=== PATIENT | female | born 1940 | race African-American/Black ===

== ENCOUNTER 2017-11-22 23:53 | Inpatient (IN) | payer BC, MEDICARE ==
[~2017-11-22] VITALS: Ht 167.6 cm; Wt 85.7 kg
[~2017-11-22 23:53] MED LIST: AFRIN NASAL SPR30 ML NASAL; ASPIR 8181 MG ORAL; BACLOFEN10 MG ORAL; BACTRIM-DS1 EA PO; CIPRO500 MG PO; COMPAZINE25 MG RECTAL; CRESTOR10 M1 ORAL; CRESTOR10 M2 ORAL; FLAGYL500 MG ORAL; KEFLEX500 MG ORAL; LEVAQUIN250 M1 ORAL; LEVAQUIN500 MG ORAL; LUMIGAN2.5 ML BOTH EYES; METOPROLOL SUC100 MG ORAL; PHENERGAN/CODE120 ML ORAL; PLAVIX75 MG ORAL; SULINDAC200 MG PO; VITAMIN C500 M1 ORAL; VITAMIN D35000 UNIT PO; VITAMIN E400 UNIT PO; ZEBETA5 MG ORAL; ZINC SULFATE220 M1 ORAL; ZITHROMAX250 MG ORAL
[2017-11-23] VITALS (8 sets, daily range): BP systolic 130–164; BP diastolic 65–105
[2017-11-23] MEDS ORDERED: Sodium Chloride 500ML 500 ML IV ONE (00:09)
[2017-11-23 00:46] LABS: BASOPHILS % (AUTO) 0.5 % (0.0-2.0); EOSINOPHILS % (AUTO) 0.5 % (0.0-3.0); HEMATOCRIT 54.7 % (37.0-47.0); HEMOGLOBIN 17.4 G/DL (12.0-16.0); LYMPHOCYTES % (AUTO) 11.4 % (20.0-45.0); MEAN CORPUSCULAR VOLUME 84 FL (80-99); MONOCYTES % (AUTO) 7.7 % (1.0-10.0); NEUTROPHILS % (AUTO) 79.9 % (45.0-75.0); PLATELET COUNT 201 K/UL (150-450); RED BLOOD COUNT 6.49 M/UL (4.20-5.40); RED CELL DISTRIBUTION WIDTH 13.3 % (11.6-14.8); WHITE BLOOD COUNT 14.1 K/UL (4.8-10.8)
[2017-11-23 00:47] LABS: APPEARANCE,URINE TURBID; BILIRUBIN, URINE NEGATIVE (NEGATIVE); COLOR,URINE BROWN; GLUCOSE, URINE (UA) NEGATIVE (NEGATIVE); KETONES,URINE NEGATIVE (NEGATIVE); NITRITE,URINE NEGATIVE (NEGATIVE); PH,URINE 9 (4.5-8.0); PROTEIN,URINE 3+ (NEGATIVE); UROBILINOGEN,URINE NORMAL MG/DL (0.0-1.0)
[2017-11-23 00:59] LABS: LEUKOCYTE ESTERASE ,URINE 1+ (NEGATIVE)
[2017-11-23 01:02] LABS: ANION GAP 9 mmol/L (5-15); BLOOD UREA NITROGEN 13 mg/dL (7-18); CALCIUM 9.6 MG/DL (8.5-10.1); CARBON DIOXIDE 30 MMOL/L (21-32); CHLORIDE 105 MMOL/L (98-107); CREATININE 0.9 MG/DL (0.55-1.30); POTASSIUM 3.2 MMOL/L (3.5-5.1); SODIUM 143 MMOL/L (136-145)
[2017-11-23 01:28] LABS: ALANINE AMINOTRANSFERASE 15 U/L (12-78); ALBUMIN 3.6 G/DL (3.4-5.0); ALBUMIN/GLOBULIN RATIO 0.8 (1.0-2.7); ALKALINE PHOSPHATASE 101 U/L (46-116); ASPARTATE AMINO TRANSFERASE 21 U/L (15-37); CKMB 1.9 NG/ML (0.0-3.6); CREATINE KINASE 81 U/L (26-308)
--- NOTE | 2017-11-23 02:16 | Emergency Room Report ---
History of Present Illness General Chief Complaint: Nausea, Vomiting, and Diarrhea Source: Patient, Family Member, EMS Present Illness HPI Patient presents with complaints of increased nausea Mild diffuse abdominal discomfort Denies any diarrhea Patient has Shah catheter in place Patient has been having Shah catheter replaced every several days has ongoing UTI Denies any fevers Denies any chest pain denies any cough patient has also been feeling weak Allergies: Coded Allergies: SILICONE (Unverified Allergy, Unknown, 09/18/15) Patient History Past Medical History: see triage record Pertinent Family History: none Reviewed Nursing Documentation: PMH: Agreed; PSxH: Agreed Nursing Documentation-PMH Past Medical History: No History, Except For Hx Cardiac Problems: Yes Hx Hypertension: Yes Hx Pacemaker: No Hx Asthma: No Hx Diabetes: No - NO HISTORY of DIABETES Hx Cancer: Yes - Kidneys Hx Gastrointestinal Problems: No Hx Dialysis: No Hx Neurological Problems: Yes - TRANSVERSE MILITIS Hx Cerebrovascular Accident: No Hx Seizures: No Hx Multiple Sclerosis: Yes Hx Amyotrophic Lat Sclerosis: Yes Hx Paralysis: Yes - since 08/2008 Hx Neurologic Surgery: No Hx Brain Shunt: No Review of Systems All Other Systems: negative except mentioned in HPI Physical Exam Vital Signs Date Time Temp Pulse Resp B/P (MAP) Pulse Ox O2 Delivery O2 Flow Rate FiO2 11/22/17 23:54 97.5 102 18 142/88 100 Room Air 97.5 Sp02 EP Interpretation: reviewed, normal General Appearance: no apparent distress Head: normocephalic, atraumatic Eyes: bilateral eye PERRL, bilateral eye EOMI ENT: hearing grossly normal, TMs + canals normal, uvula midline, dry mucus membranes Neck: full range of motion, supple, no meningismus, no bony tend Respiratory: lungs clear, normal breath sounds, no rhonchi, no respiratory distress, no retraction, no accessory muscle use Cardiovascular #1: normal peripheral pulses, no edema, no gallop, no JVD, no murmur, tachycardia Gastrointestinal: normal bowel sounds, non tender, soft, no mass, no organomegaly, non-distended, no guarding, no hernia, no pulsatile mass, no rebound Genitourinary: no CVA tenderness Musculoskeletal: normal inspection Neurologic: oriented x3, 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, 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, sensory intact Psychiatric: mood/affect normal Skin: warm/dry, palpation normal Lymphatic: normal inspection, no adenopathy Medical Decision Making Diagnostic Impression: Primary Impression: Nausea Additional Impressions: vomiting Dehydration UTI (urinary tract infection) ER Course Patient is complex with multiple differentials considered At this time abdomen remains soft and therefore imaging study has not been obtained However patient's blood work reveals elevated white blood cell count Urine sample also shows many bacteria We are trying to obtain patient's current antibiotic therapy Therefore further medication has not been given here And patient admitted for further care Labs Test 11/23/17 00:30 White Blood Count 14.1 K/UL (4.8-10.8) Red Blood Count 6.49 M/UL (4.20-5.40) Hemoglobin 17.4 G/DL (12.0-16.0) Hematocrit 54.7 % (37.0-47.0) Mean Corpuscular Volume 84 FL (80-99) Mean Corpuscular Hemoglobin 26.9 PG (27.0-31.0) Mean Corpuscular Hemoglobin Concent 31.9 G/DL (32.0-36.0) Red Cell Distribution Width 13.3 % (11.6-14.8) Platelet Count 201 K/UL (150-450) Mean Platelet Volume 9.0 FL (6.5-10.1) Neutrophils (%) (Auto) 79.9 % (45.0-75.0) Lymphocytes (%) (Auto) 11.4 % (20.0-45.0) Monocytes (%) (Auto) 7.7 % (1.0-10.0) Eosinophils (%) (Auto) 0.5 % (0.0-3.0) Basophils (%) (Auto) 0.5 % (0.0-2.0) Urine Color Brown Urine Appearance Turbid Urine pH 9 (4.5-8.0) Urine Specific [place] 1.015 (1.005-1.035) Urine Protein 3+ (NEGATIVE) Urine Glucose (UA) Negative (NEGATIVE) Urine Ketones Negative (NEGATIVE) Urine Occult Blood 1+ (NEGATIVE) Urine Nitrite Negative (NEGATIVE) Urine Bilirubin Negative (NEGATIVE) Urine Urobilinogen Normal MG/DL (0.0-1.0) Urine Leukocyte Esterase 1+ (NEGATIVE) Urine RBC 0-2 /HPF (0 - 2) Urine WBC 0-2 /HPF (0 - 2) Urine Squamous Epithelial Cells Few /LPF (NONE/OCC) Urine Triple Phosphate Crystals Many /LPF (NONE) Urine Amorphous Sediment Moderate /LPF (NONE) Urine Bacteria Many /HPF (NONE) Sodium Level 143 MMOL/L (136-145) Potassium Level 3.2 MMOL/L (3.5-5.1) Chloride Level 105 MMOL/L (98-107) Carbon Dioxide Level 30 MMOL/L (21-32) Anion Gap 9 mmol/L (5-15) Blood Urea Nitrogen 13 mg/dL (7-18) Creatinine 0.9 MG/DL (0.55-1.30) Estimat Glomerular Filtration Rate mL/min (>60) Glucose Level 111 MG/DL (74-106) Calcium Level 9.6 MG/DL (8.5-10.1) Total Bilirubin 1.0 MG/DL (0.2-1.0) Aspartate Amino Transf (AST/SGOT) 21 U/L (15-37) Alanine Aminotransferase (ALT/SGPT) 15 U/L (12-78) Alkaline Phosphatase 101 U/L (46-116) Total Creatine Kinase 81 U/L (26-308) Creatine Kinase MB 1.9 NG/ML (0.0-3.6) Creatine Kinase MB Relative Index 2.3 Troponin I 0.000 ng/mL (0.000-0.056) Total Protein 8.2 G/DL (6.4-8.2) Albumin 3.6 G/DL (3.4-5.0) Globulin 4.6 g/dL Albumin/Globulin Ratio 0.8 (1.0-2.7) Lipase 79 U/L (73-393) Rhythm Strip Diag. Results EP Interpretation: yes Rate: 66 Rhythm: NSR, no PVC's, no ectopy Chest X-Ray Diagnostic Results Chest X-Ray Diagnostic Results : Chest X-Ray Ordered: Yes # of Views/Limited/Complete: 1 View Indication: Chest Pain EP Interpretation: Yes Interpretation: no pneumothorax, other - Right-sided effusion, versus other Impression: Other - Right-sided effusion Electronically Signed by: Elizabeth Gaines DO Last Vital Signs Date Time Temp Pulse Resp B/P (MAP) Pulse Ox O2 Delivery O2 Flow Rate FiO2 11/23/17 02:06 104 15 143/77 100 Room Air 11/23/17 01:31 97.4 97.4 Status: improved Disposition: ADMITTED INPATIENT Condition: Serious Referrals: Catalina Schultz MD (PCP) Elizabeth Gaines DO Nov 23, 2017 02:16
[2017-11-23] MEDS: D5 1/2NS 1,000 ML IV SCH ×2 (06:50→16:15)
--- NOTE | 2017-11-23 09:29 | Diagnostic Imaging Report ---
Indication: Pain Technique: XRAY Chest 1v Comparison: 07/01/2016 Findings: Limited exam with patient rotation to the right. There is persistent elevation of the right hemidiaphragm. There is new obscuration of the right costophrenic sulcus which may be related to pleural effusion or a degree of atelectasis/volume loss. Underlying pneumonia not entirely excluded. There is no pneumothorax. Heart size and mediastinal contours are likely stable allowing for differences in patient rotation. There is degenerative change of the spine. No acute osseous abnormality is appreciated. IMPRESSION: Limited exam given patient rotation. Persistent elevation of the right hemidiaphragm with new obscuration of the right costophrenic sulcus which may be related to pleural effusion and/or atelectasis/consolidation. Pneumonia not entirely excluded. Clinical correlation and follow-up exam recommended. This corresponds with the preliminary interpretation of the treating ER physician as documented in the electronic medical record. Study obtained via the emergency department however patient admitted to the hospital at time of dictation of the final report.
[2017-11-23 10:04] LABS: BASOPHILS % (AUTO) 0.7 % (0.0-2.0); EOSINOPHILS % (AUTO) 0.7 % (0.0-3.0); HEMATOCRIT 48.9 % (37.0-47.0); HEMOGLOBIN 15.7 G/DL (12.0-16.0); LYMPHOCYTES % (AUTO) 18.2 % (20.0-45.0); MEAN CORPUSCULAR VOLUME 85 FL (80-99); MONOCYTES % (AUTO) 8.6 % (1.0-10.0); NEUTROPHILS % (AUTO) 71.7 % (45.0-75.0); PLATELET COUNT 175 K/UL (150-450); RED BLOOD COUNT 5.77 M/UL (4.20-5.40); WHITE BLOOD COUNT 11.1 K/UL (4.8-10.8)
[2017-11-23 10:08] LABS: ANION GAP 11 mmol/L (5-15); BLOOD UREA NITROGEN 13 mg/dL (7-18); CALCIUM 9.2 MG/DL (8.5-10.1); CARBON DIOXIDE 24 MMOL/L (21-32); CHLORIDE 107 MMOL/L (98-107); CREATININE 0.7 MG/DL (0.55-1.30); POTASSIUM 3.3 MMOL/L (3.5-5.1); SODIUM 142 MMOL/L (136-145)
--- NOTE | 2017-11-23 14:54 | Cardiology Report ---
APPROVED REPORT EKG Measurement Heart [id number] NM [id number] [id number] Sinus tachycardia N[address]pecific ST abnormality Abnormal ECG
[2017-11-23] MEDS ORDERED: Promethazine/Codeine 5ml UD ORAL PRN (15:00)
--- NOTE | 2017-11-23 15:05 | Consultation ---
History of Present Illness General Date patient seen: Nov 23, 2017 Chief Complaint: Nausea, Vomiting, and Diarrhea Reason for Consultation: pleural effusion Present Illness HPI 76 year old female with hx of MS, transverse myelitis, paraplegic, hx of Renal cell cancer, presented to ER with CC of N/V. She was found to have RLL atelectasis and possible pleural effusion. I was asked to evaluate these findings. Pt is asymptomatic now. No SOB, nor chest pain. Allergies: Coded Allergies: SILICONE (Unverified Allergy, Unknown, 09/18/15) Medication History Scheduled Ascorbic Acid* (Vitamin C*), 500 MG ORAL DAILY, (Reported) Baclofen* (Baclofen*), 10 MG ORAL DAILY, (Reported) Bimatoprost (Lumigan), 1 DROP BOTH EYES DAILY, (Reported) Bisoprolol Fumarate* (Zebeta*), 5 MG ORAL DAILY, (Reported) Clopidogrel Bisulfate* (Plavix*), 75 MG ORAL DAILY, (Reported) Levofloxacin* (Levaquin*), 500 MG ORAL DAILY, (Reported) Metoprolol Succinate* (Metoprolol Succinate*), 100 MG ORAL DAILY, (Reported) Rosuvastatin Calcium* (Crestor*), 10 MG ORAL QHS, (Reported) Sulindac* (Clinoril*), 200 MG PO BID, (Reported) Zinc Sulfate (Zinc Sulfate*), 220 MG ORAL DAILY, (Reported) Scheduled PRN Oxymetazoline HCl (Afrin), 1 SPRAY NASAL DAILY PRN for p, (Reported) Discontinued Medications Cholecalciferol (Vitamin D3) (Vitamin D3), 5,000 UNIT PO DAILY, (Reported) Discontinued Reason: MD discontinued med Patient History Healthcare decision maker Resuscitation status Advanced Directive on File Past Medical/Surgical History Past Medical/Surgical History: (1) Multiple sclerosis (2) Transverse myelitis (3) Pulmonary embolism (4) Renal cell cancer (5) DVT (deep venous thrombosis) Review of Systems All Other Systems: negative except mentioned in HPI Physical Exam General Appearance: WD/WN, no apparent distress Lines, tubes and drains: peripheral HEENT: normocephalic, atraumatic Neck: non-tender, normal alignment Respiratory/Chest: chest wall non-tender, lungs clear Breasts: no masses Cardiovascular/Chest: normal peripheral pulses Abdomen: normal bowel sounds, non tender Genitourinary/Rectal: normal genital exam Extremities: normal range of motion Skin Exam: normal pigmentation 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 Last 24 Hour Vital Signs Date Time Temp Pulse Resp B/P (MAP) Pulse Ox O2 Delivery O2 Flow Rate FiO2 11/23/17 12:00 97.5 72 18 141/65 100 97.5 11/23/17 08:00 Room Air 11/23/17 08:00 98.6 108 20 146/76 98 98.6 11/23/17 04:00 97.2 103 18 130/96 97 97.2 11/23/17 02:55 97.4 105 16 144/79 99 Room Air 11/23/17 02:53 105 16 144/79 99 Room Air 11/23/17 02:06 104 15 143/77 100 Room Air 11/23/17 01:31 97.4 100 17 164/105 98 Room Air 97.4 11/22/17 23:54 97.5 102 18 142/88 100 Room Air 97.5 Intake and Output 11/22/17 11/23/17 19:00 07:00 Intake Total 500 ml Output Total 250 ml Balance 250 ml Intake IV Total 500 ml Output Urine Total 250 ml Laboratory Tests Test 11/23/17 00:30 11/23/17 08:40 White Blood Count 14.1 K/UL (4.8-10.8) H 11.1 K/UL (4.8-10.8) H Red Blood Count 6.49 M/UL (4.20-5.40) H 5.77 M/UL (4.20-5.40) H Hemoglobin 17.4 G/DL (12.0-16.0) H 15.7 G/DL (12.0-16.0) Hematocrit 54.7 % (37.0-47.0) H 48.9 % (37.0-47.0) H Mean Corpuscular Volume 84 FL (80-99) 85 FL (80-99) Mean Corpuscular Hemoglobin 26.9 PG (27.0-31.0) L 27.2 PG (27.0-31.0) Mean Corpuscular Hemoglobin Concent 31.9 G/DL (32.0-36.0) L 32.1 G/DL (32.0-36.0) Red Cell Distribution Width 13.3 % (11.6-14.8) 13.0 % (11.6-14.8) Platelet Count 201 K/UL (150-450) 175 K/UL (150-450) Mean Platelet Volume 9.0 FL (6.5-10.1) 9.0 FL (6.5-10.1) Neutrophils (%) (Auto) 79.9 % (45.0-75.0) H 71.7 % (45.0-75.0) Lymphocytes (%) (Auto) 11.4 % (20.0-45.0) L 18.2 % (20.0-45.0) L Monocytes (%) (Auto) 7.7 % (1.0-10.0) 8.6 % (1.0-10.0) Eosinophils (%) (Auto) 0.5 % (0.0-3.0) 0.7 % (0.0-3.0) Basophils (%) (Auto) 0.5 % (0.0-2.0) 0.7 % (0.0-2.0) Urine Color Brown Urine Appearance Turbid Urine pH 9 (4.5-8.0) Urine Specific [place] 1.015 (1.005-1.035) Urine Protein 3+ (NEGATIVE) H Urine Glucose (UA) Negative (NEGATIVE) Urine Ketones Negative (NEGATIVE) Urine Occult Blood 1+ (NEGATIVE) H Urine Nitrite Negative (NEGATIVE) Urine Bilirubin Negative (NEGATIVE) Urine Urobilinogen Normal MG/DL (0.0-1.0) Urine Leukocyte Esterase 1+ (NEGATIVE) H Urine RBC 0-2 /HPF (0 - 2) Urine WBC 0-2 /HPF (0 - 2) Urine Squamous Epithelial Cells Few /LPF (NONE/OCC) Urine Triple Phosphate Crystals Many /LPF (NONE) H Urine Amorphous Sediment Moderate /LPF (NONE) H Urine Bacteria Many /HPF (NONE) H Sodium Level 143 MMOL/L (136-145) 142 MMOL/L (136-145) Potassium Level 3.2 MMOL/L (3.5-5.1) L 3.3 MMOL/L (3.5-5.1) L Chloride Level 105 MMOL/L (98-107) 107 MMOL/L (98-107) Carbon Dioxide Level 30 MMOL/L (21-32) 24 MMOL/L (21-32) Anion Gap 9 mmol/L (5-15) 11 mmol/L (5-15) Blood Urea Nitrogen 13 mg/dL (7-18) 13 mg/dL (7-18) Creatinine 0.9 MG/DL (0.55-1.30) 0.7 MG/DL (0.55-1.30) Estimat Glomerular Filtration Rate mL/min (>60) mL/min (>60) Glucose Level 111 MG/DL (74-106) H 90 MG/DL (74-106) Calcium Level 9.6 MG/DL (8.5-10.1) 9.2 MG/DL (8.5-10.1) Total Bilirubin 1.0 MG/DL (0.2-1.0) Aspartate Amino Transf (AST/SGOT) 21 U/L (15-37) Alanine Aminotransferase (ALT/SGPT) 15 U/L (12-78) Alkaline Phosphatase 101 U/L (46-116) Total Creatine Kinase 81 U/L (26-308) Creatine Kinase MB 1.9 NG/ML (0.0-3.6) Creatine Kinase MB Relative Index 2.3 Troponin I 0.000 ng/mL (0.000-0.056) Total Protein 8.2 G/DL (6.4-8.2) Albumin 3.6 G/DL (3.4-5.0) Globulin 4.6 g/dL Albumin/Globulin Ratio 0.8 (1.0-2.7) L Lipase 79 U/L (73-393) Height (Feet): 5 Height (Inches): 6.00 Weight (Pounds): 189 Medications Current Medications Medications (Trade) Dose Ordered Sig/Daysi Route PRN Reason Start Time Stop Time Status Last Admin Dose Admin Acetaminophen (Tylenol) 650 mg Q4H PRN ORAL Mild Pain/Temp > 100.5 11/23/17 06:15 12/23/17 06:14 11/23/17 12:00 Amitriptyline HCl (Elavil) 10 mg BEDTIME ORAL 11/23/17 21:00 12/23/17 20:59 Dextrose/Sodium Chloride 1,000 ml @ 100 mls/hr Q10H IV 11/23/17 06:15 12/23/17 06:14 11/23/17 06:50 Ondansetron HCl (Zofran) 4 mg Q6H PRN IVP Nausea & Vomiting 11/23/17 06:15 12/23/17 06:14 Assessment/Plan Problem List: (1) Pleural effusion ICD Codes: J90 - Pleural effusion, not elsewhere classified SNOMED: 50183979 (2) Right lower lobe pneumonia ICD Codes: J18.1 - Lobar pneumonia, unspecified organism SNOMED: 402002352 (3) Multiple sclerosis ICD Codes: G35 - Multiple sclerosis SNOMED: 39346043 Assessment/Plan sputum induction chest pt incentive spirometry agree with CT of chest respiratory treatment. venous doppler of legs Lawrence Soriano MD Nov 23, 2017 15:05
--- NOTE | 2017-11-23 16:07 | Diagnostic Imaging Report ---
Indication: Abdominal pain. Renal mass Technique: CT chest/abdomen/pelvis was performed utilizing automated exposure control without intravenous contrast material. Axial, sagittal coronal images were generated. CT dose: Total DLP 761 mGycm; CTDI vol 0.2, 0.2, 11.6 mGy Comparison: CT of the abdomen and pelvis with contrast 07/03/2016 Findings: Note that evaluation of the abdominal and pelvic viscera is limited without the use of intravenous contrast. Within these limitations, the following observations are made: There is persistent elevation of the right hemidiaphragm with volume loss in the right hemithorax with likely chronic degree of atelectasis in the right middle lobe and right lower lobe. Degree of right-sided volume loss may be slightly increased compared to the prior exam. There is no pneumothorax. There is mild dependent atelectasis in the left lung. There is a 5 mm nodule in the left lower lobe (series 4 image #50). Heart size within normal limits. No appreciable pericardial effusion. There are mitral annular and aortic valvular calcifications. Coronary arterial calcifications are also noted. No appreciable pathologically enlarged mediastinal or hilar lymphadenopathy. Thyroid is grossly unremarkable. Multiple low-attenuation lesions are again noted within the liver, similar in extent and size compared to the prior exam. These may potentially represent cysts however not completely evaluated without contrast. The left lobe of the liver is again noted to be somewhat small in appearance. Gallbladder unremarkable. Spleen noncontrast evaluation of the spleen adrenal glands and pancreas is grossly unremarkable. A solid exophytic lesion arising from the upper pole the right kidney is not completely evaluated without contrast. It measures approximately 2.9 cm in size, slightly increased compared to prior exam. There is no evidence of hydronephrosis bilaterally. The bladder is decompressed with a Shah catheter, limiting its evaluation. Uterus is grossly unremarkable on CT. There is no free intraperitoneal air. No evidence of bowel obstruction. There is copious stool noted throughout the colon compatible with constipation. There is surgical material in the right lower quadrant raising question for prior appendectomy. No abnormal focal or diffuse bowel wall thickening is seen. Abdominal aorta is normal in caliber with scattered atherosclerotic calcifications. An infrarenal IVC filter is in place. No appreciable pathologically enlarged lymphadenopathy however evaluation limited without contrast. There are extensive multilevel degenerative changes of the spine. There is S-shaped scoliosis. Degenerative changes of the bilateral hips also noted. There is mild subcutaneous edema. IMPRESSION: Limited exam without intravenous contrast. Within these limitations: * Exophytic mass lesion arising from the upper pole of the right kidney. This lesion was noted to be enhancing on the prior exam of 07/03/2016 concerning for renal cell carcinoma. It demonstrates interval increase in size to approximately 2.9 cm (from approximately 2.5 cm). * Persistent elevation of the right hemidiaphragm with chronic right lung volume loss. Degree of likely chronic collapse of the right middle and lower lobes is slightly increased from the prior exam. * 5 mm lung nodule in the left lower lobe. This was seen on prior exam of 02/05/2015 and is roughly stable in size. * Low-attenuation liver lesions again noted, likely stable compared to the prior exam however evaluation is suboptimal without contrast. These may be cysts. * Coronary artery disease. * Scoliosis and extensive degenerative change of the spine. Additional findings as above. The CT scanner at [facility] is accredited by the [employer] and the scans are performed using protocols designed to limit radiation exposure to as low as reasonably achievable to attain images of sufficient resolution adequate for diagnostic evaluation.
[2017-11-23] MEDS: Heparin 5000 units/ml inj SUBQ SCH (21:20)
[2017-11-24] VITALS (7 sets, daily range): BP systolic 118–165; BP diastolic 64–85
[2017-11-24] MEDS: D5 1/2NS 1,000 ML IV SCH ×3 (02:48→22:15)
[2017-11-24 07:03] LABS: APPEARANCE,URINE CLEAR; BILIRUBIN, URINE 1+ (NEGATIVE); GLUCOSE, URINE (UA) NEGATIVE (NEGATIVE); KETONES,URINE NEGATIVE (NEGATIVE); LEUKOCYTE ESTERASE ,URINE 3+ (NEGATIVE); NITRITE,URINE NEGATIVE (NEGATIVE); PH,URINE 5 (4.5-8.0); PROTEIN,URINE 3+ (NEGATIVE); UROBILINOGEN,URINE 8 MG/DL (0.0-1.0)
[2017-11-24 07:24] LABS: COLOR,URINE YELLOW
[2017-11-24 07:25] LABS: BASOPHILS % (AUTO) 0.9 % (0.0-2.0); EOSINOPHILS % (AUTO) 2.9 % (0.0-3.0); HEMATOCRIT 42.9 % (37.0-47.0); HEMOGLOBIN 14.1 G/DL (12.0-16.0); LYMPHOCYTES % (AUTO) 27.5 % (20.0-45.0); MEAN CORPUSCULAR VOLUME 84 FL (80-99); MONOCYTES % (AUTO) 9.8 % (1.0-10.0); NEUTROPHILS % (AUTO) 58.9 % (45.0-75.0); PLATELET COUNT 177 K/UL (150-450); RED BLOOD COUNT 5.12 M/UL (4.20-5.40); RED CELL DISTRIBUTION WIDTH 13.2 % (11.6-14.8); WHITE BLOOD COUNT 8.2 K/UL (4.8-10.8)
[2017-11-24 07:34] LABS: ANION GAP 10 mmol/L (5-15); BLOOD UREA NITROGEN 12 mg/dL (7-18); CALCIUM 8.9 MG/DL (8.5-10.1); CARBON DIOXIDE 25 MMOL/L (21-32); CHLORIDE 107 MMOL/L (98-107); CREATININE 0.8 MG/DL (0.55-1.30); POTASSIUM 3.5 MMOL/L (3.5-5.1); SODIUM 142 MMOL/L (136-145)
[2017-11-24] MEDS: Heparin 5000 units/ml inj SUBQ SCH ×2 (09:00→21:00)
--- NOTE | 2017-11-24 14:45 | History and Physical Report ---
DATE OF ADMISSION: 11/23/2017 NOTE: POOR AUDIO/MULTIPLE BLANKS REASON FOR ADMISSION: This of one of several admissions to [facility] of this 76-year-old lady because of confusion, fever, and intractable headache. HISTORY OF PRESENT ILLNESS: The patient resides home and has been in stable condition. Over the last several months, she is known to have myelitis and has been paraplegic and bedridden for the last 40 years and admission to this hospital was about a year ago. The last admission to the hospital was in March last year where she was admitted because of urosepsis to [facility]. After her discharge from [facility], the patient did not see any physician, did not undergo any test. Due to this , the patient became anorexic having lost substantial amount of weight. She did not . She developed significant memory loss. On the day of admission, she developed intractable headache and confusional state. She has fever, tachycardia, and came to the emergency room at [place]. After assessment, she was found to have leukocytosis of 14,000 and the urine was clean, however, her chest x-ray right pleural effusion and the patient was admitted. ALLERGIES: No known drug allergies. MEDICATIONS: The patient has neurogenic bladder . Other medications that she takes at home are purely symptomatic. She has a history of renal cell carcinoma stage I now chronically for 4 years, for which she did not receive any specific treatment. FAMILY HISTORY: Both parents from cardiovascular disease in the 70. She has no brother and no sister. She has one daughter in good health. SOCIAL HISTORY: She is . She was born in [place]. 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 Habits, the patient does not smoke, drink, or use illicit drugs. REVIEW OF SYSTEMS: CARDIOVASCULAR: The patient denied any chest pain, shortness of breath, palpitations, or dizziness. PULMONARY: The patient denied any cough, wheezing, or expectoration. GASTROINTESTINAL: Appetite is extremely poor. Her weight is not known, but she lost at least 20 to 30 pounds since last time I saw her. She has no dysphagia or dyspepsia. No bowel movement disorder. GENITOURINARY: The patient denies any dysuria, frequency, incontinence, or nocturia. She does have a permanent Shah catheter. JOINTS: The patient denied any pain, swelling, stiffness, cold extremities, photosensitivity, dry eyes, or alopecia. She does have pain in left scapular area. She does have pain in the right lower extremity and the right lower extremity had been swollen now for several months. CENTRAL NERVOUS SYSTEM: Her sleep is of good quality. She has no numbness, tingling, seizure disorder, and has no headache. PHYSICAL EXAMINATION: VITAL SIGNS: Her blood pressure is 136/71, pulse is 103, respirations are 18, and temperature was 98.6. HEENT: Eyes were normal. Pupils were round, equal, and reactive to light. Sclerae was white. Conjunctiva was pink. Extraocular movements were normal. Temporal arteries were palpable bilaterally. There was bilateral temporal wasting. Visual medina to confrontation and Neglect sign were normal. ENT, mucous membranes were not dehydrated. Auditory canals were clear and tympanic membranes could not be visualized. Nasal cavity was not congested. Nasal septum was intact. Soft palate was free of ulcerations. Pharynx was clear from exudate or tonsillar hypertrophy. Uvula steven to phonation. Tongue was moist, midline, and normally papillated. NECK: Supple. There was no goiter. No mass. No lymphadenopathy. There was no JVD or bruits. Carotid upstroke was 2+. LUNGS: Clear. HEART: PMI was in the fourth left intercostal space in midclavicular line and difficult to locate. There was soft S1 and soft S2. There was no murmur. No arrhythmia. No S3, no S4. No pericardial rub. ABDOMEN: Soft and nontender without organomegaly. There were no masses palpable. There were normal bowel sounds without bruits. There was no guarding. No rebound tenderness. No ascites. No hernia. No CVA tenderness. Liver span was 8 cm, mostly nontender. EXTREMITIES: The right lower extremity was warm, swollen, and minimally tender. The left lower extremity was not warm, not swollen, and not tender. NEUROLOGICAL: The reflexes in biceps, triceps, and brachioradialis were present. Patellar retinaculum could not be obtained. Plantar were indifferent. Cranial nerves II through XII were symmetric and equal. Cerebellar function, there was no tremor. No nystagmus. No extrapyramidal rigidity. Sensory exam to pinprick, cotton touch, and position are grossly normal in upper extremity, but was not done in lower extremity at patient's request. GENITOURINARY: The patient is incontinent of urine and probably because of stool as well. LABORATORY AND DIAGNOSTIC DATA: Hemoglobin is 15.7, hematocrit 48.9 with MCV of 85, WBC of 11.1, and platelets is 175. BUN and creatinine is 13 and 0.7 respectively. Her sodium is 142, potassium 3.3, chloride 107, and CO2 is 24. Troponin was undetected. Albumin is 3.6, total protein is 8.2. Globulin is 4.6. SGOT and SGPT are normal. Alkaline phosphatase is . Total CK is 81. Her chest x-ray shows right costophrenic angle and may be related to right pleural effusion or atelectasis. CT scan of abdomen and pelvis chronic atelectasis right lower lobe . x-ray revealed 07/03/2016. The mass was 2.5 cm. The mass now is 2.9 cm. of the hemidiaphragm volume loss left lower lobe January 2016. . IMPRESSION AND PLAN: The patient had leukocytosis yesterday and leukocytosis improved. She has no anemia. Urine is clean. She has atelectasis of the right lower lobe of the right lung. She has renal cell carcinoma. In addition, the patient has anorexia and weight loss and possible DVT in the right lower extremity. Urology organizational effectiveness consultant and Pulmonary consultants were called to assist in the management of this case. Repeat laboratory tests will be done in the morning. Ultrasound of the right lower extremity will be done. Tumor markers will be . Urology organizational effectiveness consultant was called to assist in the management of this case. Catalina Schultz M.D. DR: LUX JOB#: [id number] CC:
--- NOTE | 2017-11-24 14:51 | Pulmonology Progress Note ---
Assessment/Plan Problems: (1) Pleural effusion (2) Right lower lobe pneumonia (3) Multiple sclerosis Assessment/Plan CT chest and abdomen reviewed, there is no pleural effusion exophytic renal mass has increased in seize pulmonary nodule is the same size as a few years ago. symptomatic treatment need to f/u with oncologist as outpatient. Subjective ROS Limited/Unobtainable: No Constitutional: Reports: no symptoms HEENT: Repors: no symptoms Respiratory: Reports: no symptoms Allergies: Coded Allergies: SILICONE (Unverified Allergy, Unknown, 09/18/15) Objective Last 24 Hour Vital Signs Date Time Temp Pulse Resp B/P (MAP) Pulse Ox O2 Delivery O2 Flow Rate FiO2 11/24/17 11:40 97.6 89 20 151/70 98 97.6 11/24/17 11:40 Room Air 11/24/17 11:28 75 18 96 Room Air 11/24/17 11:23 75 18 96 Room Air 11/24/17 08:30 98.0 97 20 145/64 100 98.0 11/24/17 08:30 Room Air 11/24/17 07:15 88 18 97 Room Air 11/24/17 07:11 88 18 97 Room Air 11/24/17 04:00 98.4 98 18 131/70 94 98.4 11/24/17 03:25 89 18 96 Room Air 11/24/17 03:21 87 18 96 Room Air 11/24/17 00:00 99.5 98 18 137/64 94 99.5 11/23/17 23:47 80 18 97 Room Air 11/23/17 23:41 78 18 97 Room Air 11/23/17 20:40 89 18 97 Room Air 11/23/17 20:35 88 18 97 Room Air 11/23/17 20:00 98.6 103 18 136/71 93 98.6 11/23/17 16:00 97.4 70 19 133/69 98 97.4 11/23/17 16:00 Room Air Intake and Output 11/23/17 11/24/17 19:00 07:00 Intake Total 1700 ml 1450 ml Balance 1700 ml 1450 ml Intake Oral 500 ml 250 ml IV Total 1200 ml 1200 ml # Voids 2 General Appearance: no acute distress HEENT: normocephalic Respiratory/Chest: chest wall non-tender, lungs clear Breasts: no masses Cardiovascular: normal peripheral pulses Abdomen: normal bowel sounds, soft, non tender Genitourinary: normal external genitalia 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/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 Microbiology Date/Time Source Procedure Growth Status 11/23/17 00:30 Urine,Clean Catch Urine Culture - Preliminary Resulted Laboratory Tests 11/24/17 05:15: White Blood Count 8.2, Red Blood Count 5.12, Hemoglobin 14.1, Hematocrit 42.9, Mean Corpuscular Volume 84, Mean Corpuscular Hemoglobin 27.5, Mean Corpuscular Hemoglobin Concent 32.8, Red Cell Distribution Width 13.2, Platelet Count 177, Mean Platelet Volume 9.1, Neutrophils (%) (Auto) 58.9, Lymphocytes (%) (Auto) 27.5, Monocytes (%) (Auto) 9.8, Eosinophils (%) (Auto) 2.9, Basophils (%) (Auto ) 0.9, Sodium Level 142, Potassium Level 3.5, Chloride Level 107, Carbon Dioxide Level 25, Anion Gap 10, Blood Urea Nitrogen 12, Creatinine 0.8, Estimat Glomerular Filtration Rate , Glucose Level 83, Calcium Level 8.9 11/24/17 06:40: Urine Color Yellow, Urine Appearance Clear, Urine pH 5, Urine Specific [place] 1.020, Urine Protein 3+H, Urine Glucose (UA) Negative, Urine Ketones Negative, Urine Occult Blood 4+H, Urine Nitrite Negative, Urine Bilirubin 1+H, Urine Ictotest Negative, Urine Urobilinogen 8H, Urine Leukocyte Esterase 3+H, Urine RBC 5-10H, Urine WBC 10-15H, Urine Squamous Epithelial Cells Few, Urine Bacteria Few Current Medications Medications (Trade) Dose Ordered Sig/Daysi Route PRN Reason Start Time Stop Time Status Last Admin Dose Admin Acetaminophen (Tylenol) 650 mg Q4H PRN ORAL Mild Pain/Temp > 100.5 11/23/17 06:15 12/23/17 06:14 11/24/17 11:45 Amitriptyline HCl (Elavil) 10 mg BEDTIME ORAL 11/23/17 21:00 12/23/17 20:59 11/23/17 21:14 Dextrose/Sodium Chloride 1,000 ml @ 100 mls/hr Q10H IV 11/23/17 06:15 12/23/17 06:14 11/24/17 02:48 Heparin Sodium (Porcine) (Heparin 5000 units/ml) 5,000 units EVERY 12 HOURS SUBQ 11/23/17 21:00 12/23/17 20:59 11/23/17 21:20 Ondansetron HCl (Zofran) 4 mg Q6H PRN IVP Nausea & Vomiting 11/23/17 06:15 12/23/17 06:14 Promethazine HCl/ Codeine (Phenergan with Codeine) 5 ml Q4H PRN ORAL For Cough 11/23/17 15:00 12/23/17 14:59 Lawrence Soriano MD Nov 24, 2017 14:51
[2017-11-24] MEDS ORDERED: Gastrograffin 30ml ORAL PRN (19:30)
[2017-11-24] MEDS ORDERED: Gastrograffin 30ml RECTAL PRN (19:30)
[2017-11-24] MEDS ORDERED: Isovue-370 150ml vial INJ PRN (19:30)
[2017-11-25] MEDS: D5 1/2NS 1,000 ML IV SCH ×2 (02:03→19:15)
[2017-11-25 03:54] VITALS: BP 153/81
--- NOTE | 2017-11-25 05:45 | Progress Note ---
DATE: 11/24/2017 SUBJECTIVE: The patient is awake alert, afebrile, hemodynamically stable and in good spirits. She underwent Doppler scan today and was found to have a hematoma and DVT associated with pseudoaneurysm in the right lower extremity. PHYSICAL EXAMINATION: VITAL SIGNS: Blood pressure is 165/85, pulse 93, respirations 20, and temperature 97.7. HEENT: Eyes were normal. ENT, mucous membranes were moist and intact. NECK: Supple with no JVD without lymph nodes. LUNGS: Clear. HEART: Normal sounds with regular beats. ABDOMEN: Soft, obese, and nontender with normal bowel sounds. EXTREMITIES: Warm without cyanosis, clubbing, or edema. LABORATORY DATA: Hemoglobin 14.1, hematocrit 42.9, with MCV of 84, WBC 8.2, and platelets 177. Her BUN and creatinine is 12 and 0.8 respectively. Her sodium is 142, potassium 3.5, chloride 107, CO2 is 25. IMPRESSION: Clinical and pathologic findings: 1. New onset of hematoma. 2. New onset of deep venous thrombosis. Vascular client service consultant was called to assist in the management of this case. 3. In regard to the patient exophytic tumor, Urology consult was called to assist in the management of this case. 4. Repeat laboratory tests will be done in the morning. Catalina Schultz M.D. DR: Yovanny JOB#: [id number] CC:
[2017-11-25 08:07] LABS: BASOPHILS % (AUTO) 0.6 % (0.0-2.0); EOSINOPHILS % (AUTO) 3.9 % (0.0-3.0); HEMATOCRIT 42.2 % (37.0-47.0); HEMOGLOBIN 13.8 G/DL (12.0-16.0); LYMPHOCYTES % (AUTO) 24.9 % (20.0-45.0); MEAN CORPUSCULAR VOLUME 84 FL (80-99); MONOCYTES % (AUTO) 12.5 % (1.0-10.0); PLATELET COUNT 164 K/UL (150-450); RED BLOOD COUNT 5.03 M/UL (4.20-5.40); RED CELL DISTRIBUTION WIDTH 12.8 % (11.6-14.8); WHITE BLOOD COUNT 7.6 K/UL (4.8-10.8)
[2017-11-25 08:20] VITALS: BP 140/90
[2017-11-25 08:23] LABS: ANION GAP 7 mmol/L (5-15); BLOOD UREA NITROGEN 10 mg/dL (7-18); CARBON DIOXIDE 27 MMOL/L (21-32); CHLORIDE 107 MMOL/L (98-107); CREATININE 0.7 MG/DL (0.55-1.30); POTASSIUM 3.4 MMOL/L (3.5-5.1); SODIUM 141 MMOL/L (136-145)
[2017-11-25] MEDS: Heparin 5000 units/ml inj SUBQ SCH (09:00)
--- NOTE | 2017-11-25 10:25 | Diagnostic Imaging Report ---
INDICATION: Pain in bilateral lower extremities TECHNIQUE: IV administration nonionic contrast. Arterial phase spiral acquisitions obtained through the abdomen, pelvis, and bilateral lower extremities Multiplanar and 3-D reconstructions were generated. Total dose length product 2777 mGycm. CTDIvol(s) 8 x 3, 48, 15, 9 mGy. Radiation dose was minimized using automated exposure control COMPARISON: Abdomen and pelvis portions of the exam compared to 11/23/2017. No comparison lower extremity runoff exam FINDINGS Abdominal aorta: Patent normal caliber abdominal aorta. Only minimal calcified atherosclerotic plaquing demonstrated. No evidence of aneurysm or dissection. Single left renal artery. There is a cyst tiny accessory right renal artery. Renal arteries are normal in caliber. Celiac axis and proximal branches, superior mesenteric artery are patent, normal in caliber. Patent normal caliber inferior mesenteric artery. Right lower extremity: Patent nonstenotic right common, internal, and external iliac arteries. The common femoral, profunda femoral, superficial femoral arteries are patent without evidence of significant stenosis or atherosclerotic plaquing. Patent nonstenotic popliteal artery. All 3 trifurcation vessels opacify, and reach the ankle without evidence of significant stenosis. There is an unusual orientation of the profunda femoris artery, which originates medially and then curves around to course posterior to the superficial femoral artery There is dense asymmetric arterial phase opacification of veins in the right groin, right proximal thigh, and vulvar region. There is a right groin 2.5 x 4.5 cm venous varix located medial to the proximal profunda femoral and superficial femoral arteries. The opacified veins are mostly superficial veins. The downstream femoral vein does opacify but it is occluded at its downstream terminus and there appears to be occlusion of the common femoral vein and likely the external iliac vein as well. Left lower extremity: Patent and nonstenotic left common, external, and internal iliac arteries. Patent nonstenotic left common femoral, profunda femoral, and superficial femoral arteries. Patent and nonstenotic popliteal artery. All 3 trifurcation vessels opacify, reach the ankle, without evidence of significant narrowing. No unusual venous opacification is demonstrated. Nonvascular: There is considerable edema of the bilateral lower extremities at this appears slightly worse on the right than on the left. Degenerative changes of the feet and ankles are noted. Lack of enteric contrast on the current exam limits assessment of the GI tract. There is suggestion of soft tissue thickening in the perineal region. No evidence of diverticulosis or diverticulitis. Contrast opacified stool, presumably related to the prior study, is seen within the colon. The appendix is normal. No small bowel distention. No free or loculated intraperitoneal air or fluid is evident. The gallbladder is grossly unremarkable. Hepatic cysts are again demonstrated. The pancreas is incompletely visualized. The spleen is not included in the imaging volume. The right kidney demonstrates an enhancing exophytic 2.7 cm lesion, also described on multiple prior reports. The visualized portions of the left kidney are unremarkable. No retroperitoneal or mesenteric mass or adenopathy. There is an inferior vena cava filter. No pelvic mass or adenopathy. The bones demonstrate contractures and scoliotic deformity. There are degenerative changes of both hips. Impression: No evidence of peripheral arterial insufficiency Arterial phase filling of veins in the right groin, thigh, and vulva, with a 2.5 x 4.5 cm varix in the right groin. Findings are consistent with a right groin AV fistula, exact location of which is uncertain but probably off of the proximal superficial femoral artery or profunda femoral artery. 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 This represents a discrepancy from the [facility] preliminary report. Discrepancy findings were phoned to Dr. Orourke at the time of interpretation Right renal mass, with enhancement, presumably a renal cell carcinoma, also previously described Bilateral lower extremity edema Nonspecific soft tissue thickening in the perineal region. Correlate with clinical exam Hepatic cysts Inferior vena cava filter Scoliosis and contractures and degenerative changes Other findings are in agreement with [facility] preliminary report The CT scanner at [facility] is accredited by the [employer] and the scans are performed using protocols designed to limit radiation exposure to as low as reasonably achievable to attain images of sufficient resolution adequate for diagnostic evaluation.
[2017-11-25 12:00] VITALS: BP 134/73
[2017-11-25] MEDS ORDERED: Heparin 25,000u/D5W 500ml 500 ML IV SCH (12:15)
[2017-11-25] MEDS ORDERED: Heparin 5000 units/ml inj IV ONE (12:15)
[2017-11-25 13:37] LABS: BASOPHILS % (AUTO) 1.2 % (0.0-2.0); EOSINOPHILS % (AUTO) 3.8 % (0.0-3.0); HEMATOCRIT 45.7 % (37.0-47.0); HEMOGLOBIN 14.5 G/DL (12.0-16.0); LYMPHOCYTES % (AUTO) 23.9 % (20.0-45.0); MEAN CORPUSCULAR VOLUME 85 FL (80-99); MONOCYTES % (AUTO) 11.4 % (1.0-10.0); NEUTROPHILS % (AUTO) 59.7 % (45.0-75.0); PLATELET COUNT 157 K/UL (150-450); RED CELL DISTRIBUTION WIDTH 13.3 % (11.6-14.8); WHITE BLOOD COUNT 7.7 K/UL (4.8-10.8)
--- NOTE | 2017-11-25 14:19 | Pulmonology Progress Note ---
Assessment/Plan Problems: (1) Pleural effusion (2) Right lower lobe pneumonia (3) Multiple sclerosis Assessment/Plan CT chest and abdomen reviewed, there is no pleural effusion exophytic renal mass has increased in seize pulmonary nodule is the same size as a few years ago. symptomatic treatment need to f/u with oncologist as outpatient. vascular studies noted Impression: No evidence of peripheral arterial insufficiency Subjective ROS Limited/Unobtainable: No Constitutional: Reports: no symptoms HEENT: Repors: no symptoms Respiratory: Reports: no symptoms Allergies: Coded Allergies: SILICONE (Unverified Allergy, Unknown, 09/18/15) Objective Last 24 Hour Vital Signs Date Time Temp Pulse Resp B/P (MAP) Pulse Ox O2 Delivery O2 Flow Rate FiO2 11/25/17 12:00 97.9 100 18 134/73 96 97.9 11/25/17 12:00 Room Air 11/25/17 11:27 79 18 98 Room Air 11/25/17 11:24 77 18 94 Room Air 11/25/17 08:20 97.7 95 19 140/90 Room Air 97.7 11/25/17 07:49 86 18 98 Room Air 21 11/25/17 07:43 85 18 94 Room Air 21 11/25/17 04:00 98 18 97 Room Air 21 11/25/17 04:00 90 18 94 Room Air 21 11/25/17 03:54 98.1 94 20 153/81 97 Room Air 98.1 11/24/17 23:47 98.1 87 20 148/79 96 Room Air 98.1 11/24/17 23:23 76 18 95 Room Air 21 11/24/17 23:23 77 18 95 Room Air 21 11/24/17 19:30 76 18 95 Room Air 21 11/24/17 19:30 74 18 94 Room Air 21 11/24/17 19:17 97.7 83 20 165/85 99 Room Air 97.7 11/24/17 15:50 98.2 88 20 118/73 98 98.2 11/24/17 14:54 78 18 98 Room Air 11/24/17 14:48 78 18 97 Room Air Intake and Output 11/24/17 11/25/17 19:00 07:00 Intake Total 1620 ml 1100 ml Output Total 300 ml 1200 ml Balance 1320 ml -100 ml Intake Oral 720 ml 300 ml IV Total 900 ml 800 ml Output Urine Total 300 ml 1200 ml # Voids 1 General Appearance: WD/WN HEENT: normocephalic, atraumatic Respiratory/Chest: chest wall non-tender, lungs clear Breasts: no masses Cardiovascular: normal peripheral pulses Abdomen: normal bowel sounds, soft, non tender Genitourinary: normal external genitalia Skin: no rash 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 Lymphatic: no neck adenopathy Microbiology Date/Time Source Procedure Growth Status 11/24/17 06:40 Urine,Clean Catch Urine Culture - Preliminary NO GROWTH AFTER 24 HOURS Resulted 11/23/17 00:30 Urine,Clean Catch Urine Culture - Preliminary Gram Negative Bacillus 1 Resulted Laboratory Tests 11/25/17 05:20: White Blood Count 7.6, Red Blood Count 5.03, Hemoglobin 13.8, Hematocrit 42.2, Mean Corpuscular Volume 84, Mean Corpuscular Hemoglobin 27.5, Mean Corpuscular Hemoglobin Concent 32.8, Red Cell Distribution Width 12.8, Platelet Count 164, Mean Platelet Volume 9.3, Neutrophils (%) (Auto) 58.0, Lymphocytes (%) (Auto) 24.9, Monocytes (%) (Auto) 12.5H, Eosinophils (%) (Auto) 3.9H, Basophils (%) ( Auto) 0.6, Sodium Level 141, Potassium Level 3.4L, Chloride Level 107, Carbon Dioxide Level 27, Anion Gap 7, Blood Urea Nitrogen 10, Creatinine 0.7, Estimat Glomerular Filtration Rate , Glucose Level 82, Calcium Level 9.0 11/25/17 13:09: White Blood Count 7.7, Red Blood Count 5.40, Hemoglobin 14.5, Hematocrit 45.7, Mean Corpuscular Volume 85, Mean Corpuscular Hemoglobin 26.9L, Mean Corpuscular Hemoglobin Concent 31.7L, Red Cell Distribution Width 13.3, Platelet Count 157, Mean Platelet Volume 9.5, Neutrophils (%) (Auto) 59.7, Lymphocytes (%) (Auto) 23.9, Monocytes (%) (Auto) 11.4H, Eosinophils (%) (Auto) 3.8H, Basophils (%) ( Auto) 1.2, Activated Partial Thromboplast Time [Pending] Current Medications Medications (Trade) Dose Ordered Sig/Daysi Route PRN Reason Start Time Stop Time Status Last Admin Dose Admin Acetaminophen (Tylenol) 650 mg Q4H PRN ORAL Mild Pain/Temp > 100.5 11/23/17 06:15 12/23/17 06:14 11/24/17 17:14 Amitriptyline HCl (Elavil) 10 mg BEDTIME ORAL 11/23/17 21:00 12/23/17 20:59 11/24/17 21:10 Dextrose/Sodium Chloride 1,000 ml @ 100 mls/hr Q10H IV 11/23/17 06:15 12/23/17 06:14 11/25/17 02:03 Diatrizoate Meglum/ Diatrizoate Sod (Gastrografin) 30 ml NOW PRN ORAL Radiology Procedure 11/24/17 19:30 11/26/17 19:25 Diatrizoate Meglum/ Diatrizoate Sod (Gastrografin) 60 ml NOW PRN RECTAL Radiology Procedure 11/24/17 19:30 11/26/17 19:25 Iopamidol (Isovue-370 150ml) 150 ml NOW PRN INJ Radiology Procedure 11/24/17 19:30 11/26/17 19:25 Ondansetron HCl (Zofran) 4 mg Q6H PRN IVP Nausea & Vomiting 11/23/17 06:15 12/23/17 06:14 Promethazine HCl/ Codeine (Phenergan with Codeine) 5 ml Q4H PRN ORAL For Cough 11/23/17 15:00 12/23/17 14:59 Lawrence Soriano MD Nov 25, 2017 14:19
[2017-11-25 16:00] VITALS: BP 147/83
[2017-11-25] MEDS ORDERED: Enoxaparin 40mg Inj SUBQ SCH (16:45)
[2017-11-25 19:21] VITALS: BP 164/84
[2017-11-26] VITALS (7 sets, daily range): BP systolic 140–164; BP diastolic 61–103
[2017-11-26] MEDS: D5 1/2NS 1,000 ML IV SCH ×2 (00:51→13:17)
--- NOTE | 2017-11-26 03:30 | Progress Note ---
DATE: 11/25/2017 "NOTE: POOR AUDIO QUALITY" SUBJECTIVE: The patient is awake, alert, afebrile, and hemodynamically stable. PHYSICAL EXAMINATION: VITAL SIGNS: Blood pressure 164/84, pulse 75, respirations were 18, and temperature 97.9. HEENT: Eyes were normal. ENT, mucous membranes were moist and intact. NECK: Supple with no JVD without lymph nodes. LUNGS: Clear. HEART: Normal sounds with regular beats. There is no tachycardia at rest. ABDOMEN: Soft and nontender with normal bowel sounds. EXTREMITIES: Warm without cyanosis, clubbing, or edema. LABORATORY AND IMAGING DATA: Hemoglobin is 14.5, hematocrit 45.7, MCV of 85, WBC of 7.7, and platelet is 157,000. Her BUN and creatinine is 10 and 0.7 respectively. Sodium is 141, potassium 3.4, chloride 107, and CO2 is 27. The patient underwent today CT angiogram of the lower extremity on the lower of the vein in the right groin 2.5 to 4.5 cm venous line and is medial to the proximal profunda femoris and superficial femoral artery and vein is occluded lower extremity, more on the right than the left. Regarding her groin in the right groin with AV fistula. occlusive disease of the common femoral vein and the external iliac vein. ____ CBC from 11/23/2017 progressive decline in platelets from 201,000 to 157,000. The patient has been seen by vascular surgeon and in the management of the progressive . Hematologic consult was consulted in management of this case in the meantime. The patient's CBC will be followed daily and heparin will be discontinued once the number will be . Repeat laboratory tests will be done in the a.m. Catalina Schultz M.D. DR: DENI JOB#: [id number] CC:
[2017-11-26 07:38] LABS: ANION GAP 10 mmol/L (5-15); BLOOD UREA NITROGEN 9 mg/dL (7-18); CARBON DIOXIDE 29 MMOL/L (21-32); CHLORIDE 106 MMOL/L (98-107); CREATININE 0.6 MG/DL (0.55-1.30); POTASSIUM 3.6 MMOL/L (3.5-5.1); SODIUM 145 MMOL/L (136-145)
[2017-11-26 07:45] LABS: BASOPHILS % (AUTO) 0.9 % (0.0-2.0); EOSINOPHILS % (AUTO) 4.6 % (0.0-3.0); HEMATOCRIT 45.6 % (37.0-47.0); LYMPHOCYTES % (AUTO) 30.6 % (20.0-45.0); MEAN CORPUSCULAR VOLUME 85 FL (80-99); MONOCYTES % (AUTO) 10.4 % (1.0-10.0); NEUTROPHILS % (AUTO) 53.6 % (45.0-75.0); PLATELET COUNT 194 K/UL (150-450); RED BLOOD COUNT 5.39 M/UL (4.20-5.40); WHITE BLOOD COUNT 6.7 K/UL (4.8-10.8)
[2017-11-26] MEDS: Enoxaparin 40mg Inj SUBQ SCH (08:45)
[2017-11-26] MEDS ORDERED: dilTIAZem HCl 30mg tab ORAL SCH (09:00)
[2017-11-26] MEDS ORDERED: Warfarin Sodium 5mg ORAL SCH (17:00)
[2017-11-26] MEDS ORDERED: D5 1/2NS 1000ml IV ONE ×2 (20:39→21:45)
--- NOTE | 2017-11-26 22:32 | Pulmonology Progress Note ---
Assessment/Plan Problems: (1) Pleural effusion (2) Right lower lobe pneumonia (3) Multiple sclerosis Assessment/Plan CT chest and abdomen reviewed, there is no pleural effusion exophytic renal mass has increased in seize pulmonary nodule is the same size as a few years ago. symptomatic treatment need to f/u with oncologist as outpatient. vascular studies noted Impression: No evidence of peripheral arterial insufficiency Subjective ROS Limited/Unobtainable: No Allergies: Coded Allergies: SILICONE (Unverified Allergy, Unknown, 09/18/15) Objective Last 24 Hour Vital Signs Date Time Temp Pulse Resp B/P (MAP) Pulse Ox O2 Delivery O2 Flow Rate FiO2 11/26/17 20:00 97.9 88 18 152/80 97 Room Air 97.9 11/26/17 19:35 94 20 99 Room Air 21 11/26/17 19:30 94 20 99 Room Air 21 11/26/17 16:00 98.5 94 20 140/84 99 98.5 11/26/17 16:00 Room Air 11/26/17 15:17 81 18 98 Room Air 21 11/26/17 15:14 70 18 96 Room Air 21 11/26/17 14:18 97.9 11/26/17 13:19 97.9 11/26/17 11:58 97.9 97 19 147/73 98 Room Air 97.9 11/26/17 11:32 78 18 98 Room Air 21 11/26/17 11:25 78 18 96 Room Air 21 11/26/17 10:00 150/61 11/26/17 08:00 98.1 90 20 164/103 99 98.1 11/26/17 07:46 76 18 96 Room Air 21 11/26/17 07:46 76 18 96 Room Air 21 11/26/17 04:00 97.3 98 20 156/88 98 Room Air 97.3 11/26/17 03:17 71 18 95 Room Air 21 11/26/17 03:16 71 18 95 Room Air 21 11/26/17 00:00 97.3 98 20 156/88 98 Room Air 97.3 11/25/17 23:15 74 18 94 Room Air 21 11/25/17 23:15 74 18 95 Room Air 21 Intake and Output 11/25/17 11/26/17 19:00 07:00 Intake Total 880 ml 780 ml Output Total 525 ml 600 ml Balance 355 ml 180 ml Intake Oral 480 ml 180 ml IV Total 400 ml 600 ml Output Urine Total 525 ml 600 ml Objective General Appearance: WD/WN HEENT: normocephalic, atraumatic Respiratory/Chest: chest wall non-tender, lungs clear Cardiovascular: normal peripheral pulses, normal rate, regular rhythm Abdomen: normal bowel sounds, soft, non tender, no organomegaly, non distended Extremities: no cyanosis, no clubbing, no edema Skin: no rash, no lesions 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 Microbiology Date/Time Source Procedure Growth Status 11/24/17 06:40 Urine,Clean Catch Urine Culture - Final Mixed Gram Positive Organism Complete Laboratory Tests 11/26/17 05:10: White Blood Count 6.7, Red Blood Count 5.39, Hemoglobin 15.0, Hematocrit 45.6, Mean Corpuscular Volume 85, Mean Corpuscular Hemoglobin 27.8, Mean Corpuscular Hemoglobin Concent 32.8, Red Cell Distribution Width 13.0, Platelet Count 194, Mean Platelet Volume 9.9, Neutrophils (%) (Auto) 53.6, Lymphocytes (%) (Auto) 30.6, Monocytes (%) (Auto) 10.4H, Eosinophils (%) (Auto) 4.6H, Basophils (%) ( Auto) 0.9, Sodium Level 145, Potassium Level 3.6, Chloride Level 106, Carbon Dioxide Level 29, Anion Gap 10, Blood Urea Nitrogen 9, Creatinine 0.6, Estimat Glomerular Filtration Rate , Glucose Level 84, Calcium Level 9.0 11/26/17 12:50: Prothrombin Time 10.7, Prothromb Time International Ratio 1.0 Current Medications Medications (Trade) Dose Ordered Sig/Daysi Route PRN Reason Start Time Stop Time Status Last Admin Dose Admin Acetaminophen (Tylenol) 650 mg Q4H PRN ORAL Mild Pain/Temp > 100.5 11/23/17 06:15 12/23/17 06:14 11/26/17 13:19 Amitriptyline HCl (Elavil) 10 mg BEDTIME ORAL 11/23/17 21:00 12/23/17 20:59 11/26/17 20:16 Dextrose/Sodium Chloride 1,000 ml @ 100 mls/hr Q10H IV 11/23/17 06:15 12/23/17 06:14 11/26/17 13:17 Diltiazem HCl (Cardizem) 20 mg DAILY ORAL 11/26/17 09:00 12/26/17 08:59 UNV Enoxaparin Sodium (Lovenox) 40 mg DAILY SUBQ 11/26/17 09:00 12/26/17 08:59 11/26/17 08:45 Ondansetron HCl (Zofran) 4 mg Q6H PRN IVP Nausea & Vomiting 11/23/17 06:15 12/23/17 06:14 Patient Own Medication (Patient's Own Med) 1 ea DAILY ORAL 11/27/17 09:00 12/27/17 08:59 UNV Promethazine HCl/ Codeine (Phenergan with Codeine) 5 ml Q4H PRN ORAL For Cough 11/23/17 15:00 12/23/17 14:59 Warfarin Sodium (Coumadin per pharmacy) 1 ea QHS PRN MISC Per rx protocol 11/26/17 07:00 12/26/17 06:59 Lawrence Soriano MD Nov 26, 2017 22:32
--- NOTE | 2017-11-26 23:45 | Consultation ---
DATE OF CONSULTATION: 11/26/2017 REFERRING PHYSICIAN: Catalina Schultz M.D. CONSULTING PHYSICIAN: Bhupendra Murillo M.D. REASON FOR CONSULTATION: For evaluation of difficult catheterization. HISTORY OF PRESENT ILLNESS: This is a 76-year-old female. She is known to me from previous evaluations. She has a history of neurogenic bladder, patulous urethra, and chronic Shah. She has a history of chronic renal mass. She has previous history of hydronephrosis. She has been paraplegic and bedridden for many decades. She was admitted to the hospital because of headache, confusion, and fevers. The patient had an indwelling Shah, which apparently was placed by her daughter at home. Apparently, again this morning, the Shah catheter was pulled out removed. Urology evaluation is requested to reinsert the Shah. She is currently relatively comfortable now. PAST MEDICAL HISTORY: Significant for above. PAST SURGICAL HISTORY: Unknown. MEDICATIONS: Current medications in the hospital, the patient is on Lovenox, Cardizem, Coumadin, Elavil, codeine, Zofran, and Tylenol. ALLERGIES: To silicone. SOCIAL HISTORY: She is a nonsmoker. FAMILY HISTORY: Noncontributory. REVIEW OF SYSTEMS: As above. PHYSICAL EXAMINATION: GENERAL: An elderly female, in no acute distress. VITAL SIGNS: Temperature is 97.9 degrees, blood pressure is 143/73, pulse 97, and respirations 19. HEENT: Normocephalic. NECK: Supple. ABDOMEN: Soft. GENITOURINARY: Reveals a very patulous urethral opening. EXTREMITIES: Lower extremities are in bandages. LABORATORY DATA: Her BUN is 9, creatinine 0.6, and potassium 3.6. White count is 6.7, hemoglobin 15.0, and platelets 194,000. Urinalysis showed 5 to 10 RBCs, 10 to 15 WBCs, and 3+ protein. Her last urine culture showed Providencia. DIAGNOSTIC IMAGING STUDIES: The patient had a CT scan of the abdomen and pelvis. There was mention of right renal mass, which was measured to be about 2.9 cm. There was no hydronephrosis noted. IMPRESSION: 1. History of urinary retention. 2. Neurogenic bladder. 3. Renal mass, rule out renal cell carcinoma. 4. Urinary tract infection and colonization. 5. Hematuria. 6. Proteinuria. PLAN AND DISCUSSION: The patient was evaluated and I was able to identify the urethral meatus and I was able to pass a 24-[place] Shah catheter in good position. I put 50 mL in the balloon to keep it in place. The catheter was irrigated and it will be left indwelling. The patient is to be monitored clinically. She has a renal mass, which has been managed conservatively and observed, it has grown slightly in size. At some point, if medically feasible, we will consider excision of the mass or possibly cryoablation. Thank you for this consultation. Bhupendra Murillo M.D. DR: Garrison JOB#: [id number] CC:
[2017-11-27] VITALS: BP 146/80
[2017-11-27] MEDS: D5 1/2NS 1,000 ML IV SCH ×2 (00:42→10:36)
[2017-11-27 04:00] VITALS: BP 140/79
--- NOTE | 2017-11-27 04:30 | Progress Note ---
DATE: 11/26/2017 "NOTE: POOR AUDIO QUALITY" SUBJECTIVE: The patient is awake, alert, afebrile, and hemodynamically stable. Her blood pressure is intermittently uncontrolled. PHYSICAL EXAMINATION: VITAL SIGNS: Blood pressure is 140/84, pulse is 88, respirations were 18, and temperature was 97 degrees. HEENT: Eyes were normal. ENT, mucous membranes were moist and intact. NECK: Supple with no JVD and without lymph nodes. LUNGS: Clear. HEART: Normal sounds with regular beats. ABDOMEN: Soft, obese, and nontender with normal bowel sounds. EXTREMITIES: Warm without cyanosis, clubbing, or edema. LABORATORY DATA: Hemoglobin is 15.0, hematocrit 25.3 with MCV of 85, WBC of 6.7, and platelet is 194,000. Her BUN and creatinine are 9 and 0.6 respectively. Sodium is 145, potassium 3.6, chloride 106, and CO2 is 29. Her INR is 1 and her PTT is 27. Urine culture grew 40,000 to 50,000 only. IMPRESSION: 1. The patient has deep venous thrombosis. On imaging study, it revealed the patient does have a small aneurysm. 2. 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 3. The patient has pulmonary nodule that has not been changed from last several years. 4. The patient has endophytic renal mass or renal cell carcinoma that increased by 4 mm in four years. The patient has been seen today by the urologist, but no note was left. PLAN: The patient will be discharged today home on her seen. She will remain on heparin injection, but she is on Coumadin. Call for a new antiplatelet medication. Consultation by the oncologist will be done as an outpatient. Opinion from the urologist will be obtained. Catalina Schultz M.D. DR: JYOTI JOB#: [id number] CC:
[2017-11-27 08:10] VITALS: BP 150/70
[2017-11-27] MEDS: Enoxaparin 40mg Inj SUBQ SCH (08:48)
--- NOTE | 2017-11-27 09:14 | Urology Progress Note ---
Assessment/Plan Assessment/Plan 1. History of urinary retention. 2. Neurogenic bladder. 3. Renal mass, rule out renal cell carcinoma. 4. Urinary tract infection and colonization. 5. Hematuria. 6. Proteinuria. keep santillan indwelling rec to change santillan q 3-4 weeks outpt f/u serial imaging of renal mass consider surg or cryoablation in the future d/w pt fully Subjective Allergies: Coded Allergies: SILICONE (Unverified Allergy, Unknown, 09/18/15) Subjective feels fair, new santillan draining well Objective Last 24 Hour Vital Signs Date Time Temp Pulse Resp B/P (MAP) Pulse Ox O2 Delivery O2 Flow Rate FiO2 11/27/17 09:05 72 18 96 Room Air 21 11/27/17 08:10 98.1 98 20 150/70 98 Room Air 98.1 11/27/17 04:00 98.0 81 20 140/79 99 Room Air 98.0 11/27/17 02:54 Room Air 21 11/27/17 02:54 Room Air 21 11/27/17 00:00 97.7 95 20 146/80 100 Room Air 97.7 11/26/17 23:03 88 18 97 Room Air 21 11/26/17 23:02 88 18 97 Room Air 21 11/26/17 20:00 97.9 88 18 152/80 97 Room Air 97.9 11/26/17 19:35 94 20 99 Room Air 21 11/26/17 19:30 94 20 99 Room Air 21 11/26/17 16:00 98.5 94 20 140/84 99 98.5 11/26/17 16:00 Room Air 11/26/17 15:17 81 18 98 Room Air 21 11/26/17 15:14 70 18 96 Room Air 21 11/26/17 14:18 97.9 11/26/17 13:19 97.9 11/26/17 11:58 97.9 97 19 147/73 98 Room Air 97.9 11/26/17 11:32 78 18 98 Room Air 21 11/26/17 11:25 78 18 96 Room Air 21 11/26/17 10:00 150/61 Intake and Output 11/26/17 11/27/17 19:00 07:00 Intake Total 1420 ml 1100 ml Output Total 125 ml 600 ml Balance 1295 ml 500 ml Intake Oral 420 ml IV Total 1000 ml 1100 ml Output Urine Total 125 ml 600 ml # Voids 2 Microbiology Date/Time Source Procedure Growth Status 11/24/17 06:40 Urine,Clean Catch Urine Culture - Final Mixed Gram Positive Organism Complete Current Medications Medications (Trade) Dose Ordered Sig/Daysi Route PRN Reason Start Time Stop Time Status Last Admin Dose Admin Acetaminophen (Tylenol) 650 mg Q4H PRN ORAL Mild Pain/Temp > 100.5 11/23/17 06:15 12/23/17 06:14 11/27/17 08:47 Amitriptyline HCl (Elavil) 10 mg BEDTIME ORAL 11/23/17 21:00 12/23/17 20:59 11/26/17 20:16 Dextrose/Sodium Chloride 1,000 ml @ 100 mls/hr Q10H IV 11/23/17 06:15 12/23/17 06:14 11/27/17 00:42 Diltiazem HCl (Cardizem) 20 mg DAILY ORAL 11/26/17 09:00 12/26/17 08:59 UNV Enoxaparin Sodium (Lovenox) 40 mg DAILY SUBQ 11/26/17 09:00 12/26/17 08:59 11/27/17 08:48 Ondansetron HCl (Zofran) 4 mg Q6H PRN IVP Nausea & Vomiting 11/23/17 06:15 12/23/17 06:14 Patient Own Medication (Patient's Own Med) 1 ea DAILY ORAL 11/27/17 09:00 12/27/17 08:59 UNV Promethazine HCl/ Codeine (Phenergan with Codeine) 5 ml Q4H PRN ORAL For Cough 11/23/17 15:00 12/23/17 14:59 Warfarin Sodium (Coumadin per pharmacy) 1 ea QHS PRN MISC Per rx protocol 11/26/17 07:00 12/26/17 06:59 Laboratory Tests 11/26/17 12:50: Prothrombin Time 10.7, Prothromb Time International Ratio 1.0 11/27/17 05:20: Prothrombin Time 10.4, Prothromb Time International Ratio 1.0 Height (Feet): 5 Height (Inches): 6.00 Weight (Pounds): 189 Objective exam stable, urine clear BAMSHAD,MARCELA Nov 27, 2017 09:14
[2017-11-27] MEDS ORDERED: D5 1/2NS 1000ml IV ONE (09:32)
[2017-11-27 12:00] VITALS: BP 140/75
[2017-11-27 16:00] VITALS: BP 132/86
[2017-11-27] MEDS ORDERED: Warfarin Sodium 5mg ORAL ONE (17:00)
--- NOTE | 2017-11-27 17:24 | Pulmonology Progress Note ---
Assessment/Plan Problems: (1) Pleural effusion (2) Right lower lobe pneumonia (3) Multiple sclerosis Assessment/Plan CT chest and abdomen reviewed, there is no pleural effusion exophytic renal mass has increased in seize pulmonary nodule is the same size as a few years ago. symptomatic treatment need to f/u with oncologist as outpatient. vascular studies noted Impression: No evidence of peripheral arterial insufficiency dc planning Subjective ROS Limited/Unobtainable: No Constitutional: Reports: no symptoms HEENT: Repors: no symptoms Respiratory: Reports: no symptoms Allergies: Coded Allergies: SILICONE (Unverified Allergy, Unknown, 09/18/15) Objective Last 24 Hour Vital Signs Date Time Temp Pulse Resp B/P (MAP) Pulse Ox O2 Delivery O2 Flow Rate FiO2 11/27/17 16:00 98.1 98 20 132/86 99 98.1 11/27/17 14:36 78 16 97 Room Air 21 11/27/17 14:32 78 18 97 Room Air 21 11/27/17 12:00 97.7 96 19 140/75 98 97.7 11/27/17 10:45 76 18 97 Room Air 21 11/27/17 10:40 76 20 97 Room Air 21 11/27/17 09:10 73 20 96 Room Air 21 11/27/17 09:05 72 18 96 Room Air 21 11/27/17 08:10 98.1 98 20 150/70 98 Room Air 98.1 11/27/17 04:00 98.0 81 20 140/79 99 Room Air 98.0 11/27/17 02:54 Room Air 21 11/27/17 02:54 Room Air 21 11/27/17 00:00 97.7 95 20 146/80 100 Room Air 97.7 11/26/17 23:03 88 18 97 Room Air 21 11/26/17 23:02 88 18 97 Room Air 21 11/26/17 20:00 97.9 88 18 152/80 97 Room Air 97.9 11/26/17 19:35 94 20 99 Room Air 21 11/26/17 19:30 94 20 99 Room Air 21 Intake and Output 11/26/17 11/27/17 19:00 07:00 Intake Total 1420 ml 1200 ml Output Total 125 ml 600 ml Balance 1295 ml 600 ml Intake Oral 420 ml IV Total 1000 ml 1200 ml Output Urine Total 125 ml 600 ml # Voids 2 Objective General Appearance: WD/WN HEENT: normocephalic, atraumatic Respiratory/Chest: chest wall non-tender, lungs clear Cardiovascular: normal peripheral pulses, normal rate, regular rhythm Abdomen: normal bowel sounds, soft, non tender, no organomegaly, non distended Extremities: no cyanosis, no clubbing, no edema Skin: no rash, no lesions Neurologic/Psychiatric: travel manager II-XII grossly normal Laboratory Tests 11/27/17 05:20: Prothrombin Time 10.4, Prothromb Time International Ratio 1.0 Current Medications Medications (Trade) Dose Ordered Sig/Daysi Route PRN Reason Start Time Stop Time Status Last Admin Dose Admin Acetaminophen (Tylenol) 650 mg Q4H PRN ORAL Mild Pain/Temp > 100.5 11/23/17 06:15 12/23/17 06:14 11/27/17 08:47 Amitriptyline HCl (Elavil) 10 mg BEDTIME ORAL 11/23/17 21:00 12/23/17 20:59 11/26/17 20:16 Dextrose/Sodium Chloride 1,000 ml @ 100 mls/hr Q10H IV 11/23/17 06:15 12/23/17 06:14 11/27/17 10:36 Diltiazem HCl (Cardizem) 20 mg DAILY ORAL 11/26/17 09:00 12/26/17 08:59 UNV Enoxaparin Sodium (Lovenox) 40 mg DAILY SUBQ 11/26/17 09:00 12/26/17 08:59 11/27/17 08:48 Enoxaparin Sodium (Lovenox) 40 mg ONCE SUBQ 11/27/17 21:00 11/27/17 22:00 Ondansetron HCl (Zofran) 4 mg Q6H PRN IVP Nausea & Vomiting 11/23/17 06:15 12/23/17 06:14 Patient Own Medication (Patient's Own Med) 1 ea DAILY ORAL 11/27/17 09:00 12/27/17 08:59 UNV Promethazine HCl/ Codeine (Phenergan with Codeine) 5 ml Q4H PRN ORAL For Cough 11/23/17 15:00 12/23/17 14:59 Warfarin Sodium (Coumadin per pharmacy) 1 ea QHS PRN MISC Per rx protocol 4/28/18 07:00 12/26/17 06:59 Lawrence Soriano MD Nov 27, 2017 17:24
[2017-11-27] MEDS ORDERED: Enoxaparin 40mg Inj SUBQ SCH (21:00)
--- NOTE | 2017-11-28 09:03 | Consultation ---
DATE OF CONSULTATION: 11/26/2017 HEMATOLOGY/ONCOLOGY CONSULTATION CONSULTING PHYSICIAN: Jesse Hall M.D. REQUESTING PHYSICIAN: Catalina Schultz M.D. REASON FOR CONSULTATION: Evaluation of DVT and right renal mass, inferior vena cava filter. IDENTIFYING DATA: Dear Dr. Schultz, The patient is a pleasant 76-year-old female with past medical history significant for neurogenic bladder as well as muscle sclerosis, transverse myelitis, and paraplegia, at this time presents to the ER with complaints of nausea and vomiting, noted to have right lower 01:13 atelectasis, possible pleural effusion. In addition, CAT scan noted to have evidence of right renal mass, which was completed with CAT scan of the chest, abdomen, and pelvis. Also, elevation of the right hemidiaphragm, 5 mm nodule in the left lower lobe, liver lesion noted, exophytic mass in the right kidney, lesion noticed enhancing from prior exam, concerning for 01:34 and interval increase in size to approximately 2.9 cm from prior 2.5. Hematology and Oncology Service consulted for further evaluation and treatment. In addition, a duplex showed acute thrombus in the common superficial femoral vein on the right side, enlarging hematoma noted adjacent to the right femoral artery appears to be a femoral pseudoaneurysm. Imaging shows color flow pattern consistent 02:03 and again Hematology Service was also again consulted for further evaluation and treatment. PAST MEDICAL HISTORY: As noted above, transverse myelitis, paraplegia, renal cell carcinoma, IVC filter, pulmonary embolism, and DVT. PAST SURGICAL HISTORY: None noted. MEDICATIONS: Ascorbic acid, bimatoprost, 02:18, Plavix, metoprolol, lovastatin, Lovenox, and zinc sulfate. REVIEW OF SYSTEMS: CONSTITUTIONAL: No fevers, chills, or night sweats. SKIN: No rashes, bumps, or itching. HEENT: No headache, hearing or vision changes. BREASTS: No lumps, pain, or discharge. PULMONARY: No cough, sputum, or shortness of breath. GASTROINTESTINAL: No nausea, vomiting, or diarrhea. GENITOURINARY: No dysuria, frequency, or urgency. MUSCULOSKELETAL: No joint swelling, muscle pain, or trauma. PSYCHIATRIC: No hallucinations. No anxiety noted at this time. PHYSICAL EXAMINATION: GENERAL: No acute distress. VITAL SIGNS: Reviewed. PULMONARY: Decreased breath sounds bilaterally. CARDIOVASCULAR: Regular rate. No S3 or S4. ABDOMEN: Soft, nontender, and nondistended. EXTREMITIES: No cyanosis, swelling, or edema noted. NEUROLOGIC: Grossly nonfocal. LABORATORY DATA: WBC 7.7, hemoglobin 14.5, hematocrit 46, and platelet count 157,000. INR reviewed. PTT of 27. BUN of 10 and creatinine 0.7. IMAGING: CT procedure completed and results as noted above. ASSESSMENT AND RECOMMENDATIONS: 1. Right renal mass, currently 3.4 cm. Recommend Urology evaluation. Exophytic masses increased in size over the past two years. 2. Pulmonary nodule 5 mm in size, unchanged mass. 3. Deep venous thrombosis of the right lower extremity. The patient is status post IVC filter and has been started on Lovenox. Continue Lovenox dosing at this time. In addition, consider Coumadin. 4. Hemoglobin and hematocrit remained stable. 04:16 in the setting of an acute clot. 5. Hematoma of the right lower extremity pseudoaneurysm. 6. Deep venous thrombosis history. Vascular Surgery to further evaluate as needed. At this time, 04:57 continue Lovenox. 7. 05:05. Replete potassium. 8. Continue the patient on Lovenox and Coumadin. I appreciate the consultation. Jesse Hall M.D. DR: MODE JOB#: [id number] CC:
--- NOTE | 2017-11-28 13:40 | General Progress Note ---
Assessment/Plan Assessment/Plan 1. Right renal mass, currently 3.4 cm. Recommend Urology evaluation. --> Exophytic masses increased in size over the past two years. --> Symptomatic treatment. 2. Pulmonary nodule 5 mm in size, unchanged mass. 3. Deep venous thrombosis of the right lower extremity. --> The patient is status post IVC filter and has been started on Lovenox. --> Continue Lovenox dosing at this time. In addition, consider Coumadin. 4. Hematoma of the right lower extremity pseudoaneurysm. 5. Multiple Sclerosis. 6. Pneumonia. Subjective Date patient seen: Nov 27, 2017 Constitutional: Denies: no symptoms, chills, diaphoresis, fever, malaise, weakness, other HEENT: Denies: no symptoms, eye pain, blurred vision, tearing, double vision, ear pain, ear discharge, nose pain, nose congestion, throat pain, throat swelling, mouth pain, mouth swelling, other Cardiovascular: Denies: no symptoms, chest pain, edema, irregular heart rate, lightheadedness, palpitations, syncope, other Respiratory: Denies: no symptoms, cough, orthopnea, shortness of breath, SOB with excertion, SOB at rest, sputum, stridor, wheezing, other Gastrointestinal/Abdominal: Denies: no symptoms, abdomen distended, abdominal pain, black stools, tarry stools, blood in stool, constipated, diarrhea, difficulty swallowing, nausea, poor appetite, poor fluid intake, rectal bleeding , vomiting, other Genitourinary: Denies: no symptoms, burning, discharge, frequency, flank pain, hematuria, incontinence, pain, urgency, other Neurologic/Psychiatric: Denies: no symptoms, anxiety, depressed, emotional problems, headache, numbness, paresthesia, pre-existing deficit, seizure, tingling, tremors, weakness, other Allergies: Coded Allergies: SILICONE (Unverified Allergy, Unknown, 09/18/15) Subjective No acute distress. Pending discharge. Objective Last 24 Hour Vital Signs Date Time Temp Pulse Resp B/P (MAP) Pulse Ox O2 Delivery O2 Flow Rate FiO2 11/27/17 16:00 98.1 98 20 132/86 99 98.1 11/27/17 14:36 78 16 97 Room Air 21 11/27/17 14:32 78 18 97 Room Air 21 Intake and Output 11/27/17 11/28/17 19:00 07:00 Intake Total 1400 ml Output Total 1200 ml Balance 200 ml Intake Oral 700 ml IV Total 700 ml Output Urine Total 1200 ml Height (Feet): 5 Height (Inches): 6.00 Weight (Pounds): 189 General Appearance: no apparent distress EENT: normal ENT inspection Neck: non-tender, normal alignment Cardiovascular: normal rate Respiratory/Chest: chest wall non-tender, lungs clear Abdomen: normal bowel sounds, non tender Jesse Hall MD Nov 28, 2017 13:40
--- NOTE | 2017-11-29 12:13 | Discharge Summary ---
Discharge Summary Discharge Summary Discharge Summary DATE OF ADMISSION: 11/23/2017 DATE OF DISCHARGE: 11/27/2017 REASON FOR ADMISSION: 76 years old female with past medical history significant for multiple sclerosis , transverse myelitis, paraplegia, history of renal cell carcinoma, hypertension , hypercholesterolemia, presented to emergency department complaining of nausea and mild diffuse abdominal discomfort. Patient had a Shah catheter in place and stated that she had ongoing urinary tract infections. She denied any diarrhea. She denied fever or chills. She denied chest pain. She denied cough , but reported feeling weak. Upon evaluation in emergency room, patient was found to be afebrile. Laboratory workup revealed leukocytosis ,WBC 14.1. Urinalysis with evidence of UTI, potassium 3.2, troponin negative, EKG revealed normal sinus rhythm, no acute ischemic changes. Lipase and LFTs were within normal limits. Chest x-ray revealed persistent elevation of the right hemidiaphragm with new obscuration of the right costophrenic sulcus, which may be related to pleural effusion and/or atelectasis/consolidation. Pneumonia was not entirely excluded. Patient was admitted with diagnosis of nausea/vomiting , dehydration, urinary tract infection. CONSULTANTS: pulmonary Dr. Soriano fur tinter/oncologist Dr. Hall urologist [facility]RSE: Patient admitted to medical surgical floor. Patient was started on intravenous hydration and empiric antibiotic. Field Ironworker closely follow. Supplemental oxygen provided as needed to keep pulse oximetry above 92%. Pulmonary toilet provided as needed. Urine culture initially revealed Providencia and Acinetobacter. Repeated urine culture showed mixed gram- positive organisms with colony count of only 40-50. Patient was on empiric antibiotic for pneumonia. CT of the chest revealed persistent elevation of the right hemidiaphragm with chronic right lung volume loss. Noted 5 mm lung nodule in the left lower lobe roughly stable in size compared was examined 2015. Noted exophytic mass lesion arising from the upper pole of the right kidney , increased in size from the previous exam in 2016 from 2.5 cm to approximately 2.9 cm. Urologist closely followed. Per urologist patient has a neurogenic bladder and history of urinary retention. He recommended to keep Shah catheter and change every 3-4 weeks. Renal cell carcinoma previously was managed conservatively. Urologist recommended to consider surgery or cryoablation in the future . Message Clerk / oncologist closely followed. Venous duplex revealed acute DVT right lower extremity. Patient already had IVC filter. Patient started on Lovenox and Coumadin to bridge to therapeutic INR. Patient to continue anticoagulation therapy at home. Home medications were resumed, includible antiplatelet therapy. Patient undergone CTA of the abdomen with run off which revealed no evidence of peripheral arterial sufficiency Message Clerk /oncologist recommended to follow up with urology recommendation and to consider surgery or cryoablation in the future Pain management provided . Bowel regimen instituted. Renal parameters and electrolytes were closely monitored. Electrolytes were corrected as needed. Nephrotoxics were avoided. Potassium replaced and remained stable. Patient clinically improved, was able to tolerate diet. Nausea and vomiting resolved. Patient was stable for discharge home FINAL DIAGNOSES: Right lower lobe pneumonia Acute DVT right lower extremity Pulmonary nodule 5 mm Right renal cell carcinoma Multiple sclerosis Neurogenic bladder UTI possible colonization History of urinary retention DISCHARGE MEDICATIONS: See Medication Reconciliation list. DISCHARGE INSTRUCTIONS: Patient was discharged home Follow up with primary care provider Follow up with urologist and oncologist as outpatient I have been assigned to dictate discharge summary for this account. I was not involved in the patient's management. Sera Pfeiffer NP ([place]) November 29, 2017 12:13
== END 2017-11-27 17:48 | disposition home or self-care (01) | DRG 194 ==
LOC: EDBD 23:53 → EDUNIT# 23:53 → EDBEDREQ 11-23 00:17 → EMR 11-23 00:19 → 4W 11-23 00:48 → EDBEDREQ 11-23 02:32
DX: J18.9 Pneumonia, unspecified organism (principal); N39.0 Urinary tract infection, site not specified; C64.9 Malignant neoplasm of unspecified kidney, except renal pelvis; I82.411 Acute embolism and thrombosis of right femoral vein; J98.11 Atelectasis; G82.20 Paraplegia, unspecified; G35 Multiple sclerosis; R91.1 Solitary pulmonary nodule; N28.89 Other specified disorders of kidney and ureter; R31.9 Hematuria, unspecified; Z88.8 Allergy status to other drugs, medicaments and biological substances; N31.9 Neuromuscular dysfunction of bladder, unspecified; R63.0 Anorexia; Z86.711 Personal history of pulmonary embolism; Z79.01 Long term (current) use of anticoagulants; I72.4 Aneurysm of artery of lower extremity
CPT/HCPCS: 36415; 71045; 71250; 74176; 75635; 80048; 80053; 81001; 81003; 82378; 82550; 82553; 83690; 84484; 85025; 85610; 85730; 87086; 87181; 93005; 93971; 99285; J2405; J8499

== ENCOUNTER 2018-02-09 12:04 | Inpatient (IN) | payer MEDICARE, BC ==
[~2018-02-09] VITALS: Ht 153.7 cm; Wt 96.7 kg
[2018-02-09 12:33] VITALS: BP 158/61
[2018-02-09] MEDS ORDERED: Cefepime HCl 1 GM in NS 55 ML IV STA (12:39)
[2018-02-09] MEDS ORDERED: Vancomycin 1 GM in NS 275 ML IV ONE (12:45)
[2018-02-09 13:23] LABS: BASOPHILS % (AUTO) 0.6 % (0.0-2.0); EOSINOPHILS % (AUTO) 0.6 % (0.0-3.0); HEMATOCRIT 48.5 % (37.0-47.0); HEMOGLOBIN 15.3 G/DL (12.0-16.0); LYMPHOCYTES % (AUTO) 14.8 % (20.0-45.0); MEAN CORPUSCULAR VOLUME 82 FL (80-99); MONOCYTES % (AUTO) 7.2 % (1.0-10.0); NEUTROPHILS % (AUTO) 76.7 % (45.0-75.0); PLATELET COUNT 244 K/UL (150-450); RED BLOOD COUNT 5.91 M/UL (4.20-5.40); RED CELL DISTRIBUTION WIDTH 12.2 % (11.6-14.8)
[2018-02-09 13:25] LABS: APPEARANCE,URINE TURBID; BILIRUBIN, URINE 2+ (NEGATIVE); GLUCOSE, URINE (UA) NEGATIVE (NEGATIVE); KETONES,URINE 1+ (NEGATIVE); LEUKOCYTE ESTERASE ,URINE 3+ (NEGATIVE); NITRITE,URINE POSITIVE (NEGATIVE); PH,URINE 5 (4.5-8.0); PROTEIN,URINE 4+ (NEGATIVE); UROBILINOGEN,URINE 8 MG/DL (0.0-1.0)
[2018-02-09 13:32] LABS: COLOR,URINE YELLOW
[2018-02-09 13:37] LABS: ANION GAP 11 mmol/L (5-15); BLOOD UREA NITROGEN 14 mg/dL (7-18); CALCIUM 7.1 MG/DL (8.5-10.1); CARBON DIOXIDE 20 MMOL/L (21-32); CHLORIDE 114 MMOL/L (98-107); CREATININE 0.7 MG/DL (0.55-1.30); POTASSIUM 3.2 MMOL/L (3.5-5.1); SODIUM 145 MMOL/L (136-145)
[2018-02-09 13:39] LABS: INR 1.1 (0.9-1.1)
[2018-02-09 13:47] LABS: ALANINE AMINOTRANSFERASE 11 U/L (12-78); ALBUMIN 2.3 G/DL (3.4-5.0); ALBUMIN/GLOBULIN RATIO 0.6 (1.0-2.7); ALKALINE PHOSPHATASE 70 U/L (46-116); ASPARTATE AMINO TRANSFERASE 15 U/L (15-37); BILIRUBIN,TOTAL 0.6 MG/DL (0.2-1.0); CREATINE KINASE 47 U/L (26-308); PHOSPHORUS 2.4 MG/DL (2.5-4.9)
--- NOTE | 2018-02-09 14:06 | Emergency Room Report ---
History of Present Illness General Chief Complaint: Female Urogenital Problems Source: Patient, Family Member Present Illness HPI Patient presents with weakness and not eating. She also has dysuria. She has an indwelling Shah urine is foul smelling. She's not taking antibiotics. This is been worsening over the last 2 weeks. The patient also complains about unusual abdominal pain or she feels pressure in poking in the left lower quadrant. She states this is improved in the past few days. The patient has multiple sclerosis and has paraplegia. No NVD, chest pain, cough, sore throat, joint pain, headache, depression. 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 Allergies: Coded Allergies: SILICONE (Unverified Allergy, Unknown, 09/18/15) Patient History Past Medical History: see triage record Social History: Denies: smoking, alcohol use Social History Narrative with towel folder Reviewed Nursing Documentation: PMH: Agreed; PSxH: Agreed Nursing Documentation-PMH Past Medical History: No History, Except For Hx Cardiac Problems: Yes Hx Hypertension: Yes Hx Pacemaker: No Hx Asthma: No Hx Diabetes: No Hx Cancer: Yes - Renal and labia Hx Gastrointestinal Problems: No Hx Dialysis: No Hx Neurological Problems: Yes - TRANSVERSE MILITIS Hx Cerebrovascular Accident: No Hx Seizures: No Hx Multiple Sclerosis: Yes Hx Amyotrophic Lat Sclerosis: Yes Hx Paralysis: Yes - since 08/2008 Hx Neurologic Surgery: No Hx Brain Shunt: No Review of Systems All Other Systems: negative except mentioned in HPI Physical Exam Vital Signs Date Time Temp Pulse Resp B/P (MAP) Pulse Ox O2 Delivery O2 Flow Rate FiO2 02/09/18 12:26 97.9 108 16 158/61 97 Room Air 97.9 Sp02 EP Interpretation: reviewed, normal General Appearance: no apparent distress, alert, GCS 15, Chronically Ill Head: normocephalic Eyes: bilateral eye normal inspection, bilateral eye PERRL ENT: moist mucus membranes Neck: supple Respiratory: lungs clear, normal breath sounds Cardiovascular #1: regular rate, rhythm Cardiovascular #2: 2+ radial (R) Gastrointestinal: normal inspection, normal bowel sounds, non tender, no mass, non-distended Genitourinary: no CVA tenderness Musculoskeletal: back normal, other - deformity with atrophy and contractures of LE Neurologic: alert, oriented x3, motor weakness - LE Psychiatric: mood/affect normal Skin: warm/dry, other - dryness and slight follicular rash, no erythema Medical Decision Making Diagnostic Impression: Primary Impression: Sepsis Qualified Codes: A41.9 - Sepsis, unspecified organism Additional Impressions: UTI (urinary tract infection) Qualified Codes: T83.511A - Infection and inflammatory reaction due to indwelling urethral catheter, initial encounter; N39.0 - Urinary tract infection , site not specified Multiple sclerosis ER Course Patient presents with weakness, poor appetite and fell urine. I differential includes UTI, pyelonephritis, sepsis other source of infection amongst others. The patient is not doing well at home and needs to be evaluated. This will occur with EKG, chest x-ray and labs including blood cultures and lactate. The patient is tachycardic and needs IV hydration. Due to the possibility of sepsis a 30 melena per kilogram also be given. Also as the urine appears infected at this time antibiotics will be started. The patient complains about unusual abdominal pain. At this time her abdominal exam is benign however consideration for possible CT if there is no other source of infection. Based on exam, PE is less likely as no dyspnea or chest pain. EKG sinus tachycardia with PACs no acute ischemic changes. Chest x-ray with atelectasis on the right and elevated right hemidiaphragm. White count is elevated. Lactate is elevated. NS bolus given and hydration. Antibiotics begun to cover urinary source. The patient is somewhat improved with IV hydration. She needs continued evaluation and treatment for sepsis. Admit tele Dr. Schultz (discussed). Laboratory Tests Test 02/09/18 13:03 White Blood Count 12.0 K/UL (4.8-10.8) H Red Blood Count 5.91 M/UL (4.20-5.40) H Hemoglobin 15.3 G/DL (12.0-16.0) Hematocrit 48.5 % (37.0-47.0) H Mean Corpuscular Volume 82 FL (80-99) Mean Corpuscular Hemoglobin 25.9 PG (27.0-31.0) L Mean Corpuscular Hemoglobin Concent 31.6 G/DL (32.0-36.0) L Red Cell Distribution Width 12.2 % (11.6-14.8) Platelet Count 244 K/UL (150-450) Mean Platelet Volume 8.6 FL (6.5-10.1) Neutrophils (%) (Auto) 76.7 % (45.0-75.0) H Lymphocytes (%) (Auto) 14.8 % (20.0-45.0) L Monocytes (%) (Auto) 7.2 % (1.0-10.0) Eosinophils (%) (Auto) 0.6 % (0.0-3.0) Basophils (%) (Auto) 0.6 % (0.0-2.0) Prothrombin Time 11.4 SEC (9.30-11.50) Prothrombin Time INR 1.1 (0.9-1.1) PTT 25 SEC (23-33) Urine Color Yellow Urine Appearance Turbid Urine pH 5 (4.5-8.0) Urine Specific [place] 1.025 (1.005-1.035) Urine Protein 4+ (NEGATIVE) H Urine Glucose (UA) Negative (NEGATIVE) Urine Ketones 1+ (NEGATIVE) H Urine Occult Blood 5+ (NEGATIVE) H Urine Nitrite Positive (NEGATIVE) H Urine Bilirubin 2+ (NEGATIVE) H Urine Ictotest Positive Urine Urobilinogen 8 MG/DL (0.0-1.0) H Urine Leukocyte Esterase 3+ (NEGATIVE) H Urine RBC 5-10 /HPF (0 - 2) H Urine WBC 30-40 /HPF (0 - 2) H Urine Squamous Epithelial Cells Many /LPF (NONE/OCC) H Urine Bacteria Many /HPF (NONE) H Sodium Level 145 MMOL/L (136-145) Potassium Level 3.2 MMOL/L (3.5-5.1) L Chloride Level 114 MMOL/L (98-107) H Carbon Dioxide Level 20 MMOL/L (21-32) L Anion Gap 11 mmol/L (5-15) Blood Urea Nitrogen 14 mg/dL (7-18) Creatinine 0.7 MG/DL (0.55-1.30) Estimate Glomerular Filtration Rate mL/min (>60) Glucose Level 92 MG/DL (74-106) Lactic Acid Level 2.10 mmol/L (0.4-2.0) H Calcium Level 7.1 MG/DL (8.5-10.1) L Phosphorus Level 2.4 MG/DL (2.5-4.9) L Magnesium Level 1.4 MG/DL (1.8-2.4) L Total Bilirubin 0.6 MG/DL (0.2-1.0) Aspartate Amino Transferase (AST) 15 U/L (15-37) Alanine Aminotransferase (ALT) 11 U/L (12-78) L Alkaline Phosphatase 70 U/L (46-116) Total Creatine Kinase 47 U/L (26-308) Troponin I 0.017 ng/mL (0.000-0.056) Pro-B-Type Natriuretic Peptide 171 pg/mL (0-125) H Total Protein 6.0 G/DL (6.4-8.2) L Albumin 2.3 G/DL (3.4-5.0) L Globulin 3.7 g/dL Albumin/Globulin Ratio 0.6 (1.0-2.7) L Lipase 67 U/L (73-393) L EKG Diagnostic Results Rate: tachycardiac ST Segments: no acute changes Rhythm Strip Diag. Results EP Interpretation: yes Rhythm: no PVC's, no ectopy, other - ST Chest X-Ray Diagnostic Results Chest X-Ray Diagnostic Results : Chest X-Ray Ordered: Yes # of Views/Limited/Complete: 1 View Indication: Other EP Interpretation: Yes Interpretation: no effusion, no pneumothorax, other - Elevated right hemidiaphragm and atelectasis right base Impression: Other Electronically Signed by: Electronically signed by Axel Ferreira MD Last Vital Signs Date Time Temp Pulse Resp B/P (MAP) Pulse Ox O2 Delivery O2 Flow Rate FiO2 02/09/18 16:00 100 02/09/18 15:00 97.9 18 142/68 99 Room Air 97.9 Status: improved Disposition: ADMITTED INPATIENT Condition: Serious Referrals: Catalina Schultz MD (PCP) Axel Ferreira M.D. Feb 09, 2018 14:06
--- NOTE | 2018-02-09 14:13 | Diagnostic Imaging Report ---
Indication: Dyspnea Comparison: 11/23/2017 A single view chest radiograph was obtained. Findings: There is mild right basal atelectasis. Lung volumes are low bilaterally. Heart is mildly enlarged. The bones are osteopenic. IMPRESSION: Mild atelectasis right lung base. Findings not dissimilar from the prior exam
[2018-02-09 14:47] VITALS: BP 142/68
[2018-02-09 20:00] VITALS: BP 129/73
[2018-02-09] MEDS: Heparin 5000 units/ml inj SUBQ SCH (20:16)
[2018-02-09] MEDS: Vitamin A&D Oint 2oz Tube TOPIC SCH (20:18)
[2018-02-10] VITALS: BP 131/68
[2018-02-10] MEDS: traMADol 50mg tab ORAL PRN (03:08)
[2018-02-10 04:00] VITALS: BP 129/72
[2018-02-10 07:59] LABS: BASOPHILS % (AUTO) 0.8 % (0.0-2.0); EOSINOPHILS % (AUTO) 2.7 % (0.0-3.0); HEMATOCRIT 42.3 % (37.0-47.0); HEMOGLOBIN 13.3 G/DL (12.0-16.0); LYMPHOCYTES % (AUTO) 21.3 % (20.0-45.0); MEAN CORPUSCULAR VOLUME 81 FL (80-99); MONOCYTES % (AUTO) 9.9 % (1.0-10.0); NEUTROPHILS % (AUTO) 65.3 % (45.0-75.0); PLATELET COUNT 200 K/UL (150-450); RED CELL DISTRIBUTION WIDTH 12.1 % (11.6-14.8); WHITE BLOOD COUNT 7.9 K/UL (4.8-10.8)
[2018-02-10 08:00] VITALS: BP 133/69
[2018-02-10 08:44] LABS: ALANINE AMINOTRANSFERASE 13 U/L (12-78); ALBUMIN 2.7 G/DL (3.4-5.0); ALBUMIN/GLOBULIN RATIO 0.7 (1.0-2.7); ALKALINE PHOSPHATASE 71 U/L (46-116); ANION GAP 11 mmol/L (5-15); ASPARTATE AMINO TRANSFERASE 16 U/L (15-37); BILIRUBIN,TOTAL 0.5 MG/DL (0.2-1.0); BLOOD UREA NITROGEN 12 mg/dL (7-18); CALCIUM 8.8 MG/DL (8.5-10.1); CARBON DIOXIDE 23 MMOL/L (21-32); CHLORIDE 105 MMOL/L (98-107); CREATININE 0.7 MG/DL (0.55-1.30); POTASSIUM 3.4 MMOL/L (3.5-5.1); SODIUM 139 MMOL/L (136-145)
[2018-02-10 08:48] LABS: ALANINE AMINOTRANSFERASE 13 U/L (12-78); ALBUMIN 2.7 G/DL (3.4-5.0); ALKALINE PHOSPHATASE 70 U/L (46-116); ASPARTATE AMINO TRANSFERASE 16 U/L (15-37); BILIRUBIN,DIRECT 0.2 MG/DL (0.0-0.3); BILIRUBIN,TOTAL 0.5 MG/DL (0.2-1.0)
[2018-02-10] MEDS: Heparin 5000 units/ml inj SUBQ SCH ×2 (09:52→21:56)
[2018-02-10] MEDS: Vitamin A&D Oint 2oz Tube TOPIC SCH ×2 (10:22→21:00)
--- NOTE | 2018-02-10 10:34 | Consultation ---
History of Present Illness General Date patient seen: Feb 10, 2018 Chief Complaint: Female Urogenital Problems Present Illness HPI 77 year old female with hx of Multiple sclerosis, paraplegia, PE, COPD, presents with weakness and not eating, dysuria. She has an indwelling Shah urine is foul smelling. Also c/o abdominal pain or she feels pressure in poking in the left lower quadrant. She states this is improved in the past few days. Her CXR showed RLL atelectasis and elevated right diaphragm. she was diagnosed to have sepsis and UTI and is admitted to telemetry for further management. Allergies: Coded Allergies: SILICONE (Unverified Allergy, Unknown, 09/18/15) Medication History Scheduled Ascorbic Acid* (Vitamin C*), 500 MG ORAL DAILY, (Reported) Baclofen* (Baclofen*), 10 MG ORAL DAILY, (Reported) Bimatoprost (Lumigan), 1 DROP BOTH EYES DAILY, (Reported) Bisoprolol Fumarate* (Zebeta*), 5 MG ORAL DAILY, (Reported) Clopidogrel Bisulfate* (Plavix*), 75 MG ORAL DAILY, (Reported) Metoprolol Succinate* (Metoprolol Succinate*), 100 MG ORAL DAILY, (Reported) Rosuvastatin Calcium* (Crestor*), 10 MG ORAL QHS, (Reported) Sulindac* (Clinoril*), 200 MG PO BID, (Reported) Zinc Sulfate (Zinc Sulfate*), 220 MG ORAL DAILY, (Reported) Scheduled PRN Oxymetazoline HCl (Afrin), 1 SPRAY NASAL DAILY PRN for p, (Reported) Discontinued Medications Levofloxacin* (Levaquin*), 500 MG ORAL DAILY, (Reported) Discontinued Reason: Therapy completed Patient History Healthcare decision maker Resuscitation status Full Code Advanced Directive on File Past Medical/Surgical History Past Medical/Surgical History: (1) Multiple sclerosis (2) Renal cell cancer (3) COPD (chronic obstructive pulmonary disease) Review of Systems All Other Systems: negative except mentioned in HPI Physical Exam General Appearance: WD/WN, no apparent distress Lines, tubes and drains: peripheral HEENT: normocephalic, atraumatic Neck: non-tender, normal alignment Respiratory/Chest: chest wall non-tender, lungs clear Breasts: no masses Cardiovascular/Chest: normal peripheral pulses, normal rate Abdomen: normal bowel sounds, non tender Last 24 Hour Vital Signs Date Time Temp Pulse Resp B/P (MAP) Pulse Ox O2 Delivery O2 Flow Rate FiO2 02/10/18 04:00 98.0 87 22 129/72 (91) 98.0 02/10/18 03:45 83 02/10/18 00:00 98.0 77 22 131/68 (89) 98.0 02/09/18 23:36 91 02/09/18 21:00 Room Air 02/09/18 20:00 97.7 87 20 129/73 (91) 97.7 02/09/18 19:56 93 02/09/18 16:00 100 02/09/18 15:30 Room Air 02/09/18 15:00 97.9 98 18 142/68 99 Room Air 97.9 02/09/18 14:47 97.9 98 18 142/68 99 Room Air 97.9 02/09/18 12:33 97.9 108 16 158/61 97 Room Air 97.9 02/09/18 12:26 97.9 108 16 158/61 97 Room Air 97.9 Intake and Output 02/09/18 02/10/18 19:00 07:00 Intake Total 240 ml Output Total 300 ml 200 ml Balance -60 ml -200 ml Intake Oral 240 ml Output Urine Total 300 ml 200 ml # Bowel Movements 2 Laboratory Tests Test 02/09/18 13:03 02/10/18 06:20 White Blood Count 12.0 K/UL (4.8-10.8) H 7.9 K/UL (4.8-10.8) Red Blood Count 5.91 M/UL (4.20-5.40) H 5.20 M/UL (4.20-5.40) Hemoglobin 15.3 G/DL (12.0-16.0) 13.3 G/DL (12.0-16.0) Hematocrit 48.5 % (37.0-47.0) H 42.3 % (37.0-47.0) Mean Corpuscular Volume 82 FL (80-99) 81 FL (80-99) Mean Corpuscular Hemoglobin 25.9 PG (27.0-31.0) L 25.6 PG (27.0-31.0) L Mean Corpuscular Hemoglobin Concent 31.6 G/DL (32.0-36.0) L 31.5 G/DL (32.0-36.0) L Red Cell Distribution Width 12.2 % (11.6-14.8) 12.1 % (11.6-14.8) Platelet Count 244 K/UL (150-450) 200 K/UL (150-450) Mean Platelet Volume 8.6 FL (6.5-10.1) 8.7 FL (6.5-10.1) Neutrophils (%) (Auto) 76.7 % (45.0-75.0) H 65.3 % (45.0-75.0) Lymphocytes (%) (Auto) 14.8 % (20.0-45.0) L 21.3 % (20.0-45.0) Monocytes (%) (Auto) 7.2 % (1.0-10.0) 9.9 % (1.0-10.0) Eosinophils (%) (Auto) 0.6 % (0.0-3.0) 2.7 % (0.0-3.0) Basophils (%) (Auto) 0.6 % (0.0-2.0) 0.8 % (0.0-2.0) Prothrombin Time 11.4 SEC (9.30-11.50) Prothromb Time International Ratio 1.1 (0.9-1.1) Activated Partial Thromboplast Time 25 SEC (23-33) Urine Color Yellow Urine Appearance Turbid Urine pH 5 (4.5-8.0) Urine Specific [place] 1.025 (1.005-1.035) Urine Protein 4+ (NEGATIVE) H Urine Glucose (UA) Negative (NEGATIVE) Urine Ketones 1+ (NEGATIVE) H Urine Occult Blood 5+ (NEGATIVE) H Urine Nitrite Positive (NEGATIVE) H Urine Bilirubin 2+ (NEGATIVE) H Urine Ictotest Positive Urine Urobilinogen 8 MG/DL (0.0-1.0) H Urine Leukocyte Esterase 3+ (NEGATIVE) H Urine RBC 5-10 /HPF (0 - 2) H Urine WBC 30-40 /HPF (0 - 2) H Urine Squamous Epithelial Cells Many /LPF (NONE/OCC) H Urine Bacteria Many /HPF (NONE) H Sodium Level 145 MMOL/L (136-145) 139 MMOL/L (136-145) Potassium Level 3.2 MMOL/L (3.5-5.1) L 3.4 MMOL/L (3.5-5.1) L Chloride Level 114 MMOL/L (98-107) H 105 MMOL/L (98-107) Carbon Dioxide Level 20 MMOL/L (21-32) L 23 MMOL/L (21-32) Anion Gap 11 mmol/L (5-15) 11 mmol/L (5-15) Blood Urea Nitrogen 14 mg/dL (7-18) 12 mg/dL (7-18) Creatinine 0.7 MG/DL (0.55-1.30) 0.7 MG/DL (0.55-1.30) Estimat Glomerular Filtration Rate mL/min (>60) mL/min (>60) Glucose Level 92 MG/DL (74-106) 93 MG/DL (74-106) Lactic Acid Level 2.10 mmol/L (0.4-2.0) H Calcium Level 7.1 MG/DL (8.5-10.1) L 8.8 MG/DL (8.5-10.1) # Phosphorus Level 2.4 MG/DL (2.5-4.9) L Magnesium Level 1.4 MG/DL (1.8-2.4) L Total Bilirubin 0.6 MG/DL (0.2-1.0) 0.5 MG/DL (0.2-1.0) Aspartate Amino Transf (AST/SGOT) 15 U/L (15-37) 16 U/L (15-37) Alanine Aminotransferase (ALT/SGPT) 11 U/L (12-78) L 13 U/L (12-78) Alkaline Phosphatase 70 U/L (46-116) 70 U/L (46-116) Total Creatine Kinase 47 U/L (26-308) Troponin I 0.017 ng/mL (0.000-0.056) Pro-B-Type Natriuretic Peptide 171 pg/mL (0-125) H Total Protein 6.0 G/DL (6.4-8.2) L 6.7 G/DL (6.4-8.2) Albumin 2.3 G/DL (3.4-5.0) L 2.7 G/DL (3.4-5.0) L Globulin 3.7 g/dL 4.0 g/dL Albumin/Globulin Ratio 0.6 (1.0-2.7) L 0.7 (1.0-2.7) L Lipase 67 U/L (73-393) L Erythrocyte Sedimentation Rate 12 MM/HR (0-30) Direct Bilirubin 0.2 MG/DL (0.0-0.3) C-Reactive Protein, Quantitative 7.1 mg/dL (0.00-0.90) H Carcinoembryonic Antigen Pending Thyroid Stimulating Hormone (TSH) 5.615 uiU/mL (0.358-3.740) Free Thyroxine 1.26 NG/DL (0.76-1.46) Height (Feet): 5 Height (Inches): 0.50 Weight (Pounds): 180 Medications Current Medications Medications (Trade) Dose Ordered Sig/Daysi Route PRN Reason Start Time Stop Time Status Last Admin Dose Admin Cefepime HCl 1 gm/ Dextrose 110 ml @ 220 mls/hr Q24H IVPB 02/10/18 13:30 02/17/18 13:29 Dextrose (Dextrose 50%) 25 ml STAT PRN IV Hypoglycemia 02/09/18 18:45 03/11/18 18:44 Dextrose (Dextrose 50%) 50 ml STAT PRN IV Hypoglycemia 02/09/18 18:45 03/11/18 18:44 Heparin Sodium (Porcine) (Heparin 5000 units/ml) 5,000 units EVERY 12 HOURS SUBQ 02/09/18 21:00 03/11/18 20:59 02/10/18 09:52 Levofloxacin 150 ml @ 100 mls/hr Q48H IVPB 02/11/18 14:00 02/18/18 13:59 Tramadol HCl (Ultram) 75 mg Q8H PRN ORAL Severe Breakthru Pain (>7) 02/10/18 01:15 02/17/18 01:14 02/10/18 03:08 Vitamin A/Vitamin D (A & D Oint) 1 applic EVERY 12 HOURS TOPIC 02/09/18 21:00 03/11/18 20:59 02/09/18 20:18 Assessment/Plan Problem List: (1) Sepsis ICD Codes: A41.9 - Sepsis, unspecified organism SNOMED: 03440090 (2) COPD (chronic obstructive pulmonary disease) ICD Codes: J44.9 - Chronic obstructive pulmonary disease, unspecified SNOMED: 13983618 (3) Right lower lobe pneumonia ICD Codes: J18.1 - Lobar pneumonia, unspecified organism SNOMED: 258045136 (4) Multiple sclerosis ICD Codes: G35 - Multiple sclerosis SNOMED: 77458791 (5) Paraplegia ICD Codes: G82.20 - Paraplegia, unspecified SNOMED: 43691970 Assessment/Plan respiratory treatment check electrolytes check cultures titrate fiO2 to sat of 92% dvt prophylaxis. Lawrence Soriano MD Feb 10, 2018 10:34
[2018-02-10 12:00] VITALS: BP 129/79
--- NOTE | 2018-02-10 14:02 | History and Physical Report ---
DATE OF ADMISSION: 02/09/2018 NOTE: POOR AUDIO REASON FOR ADMISSION: This is one of several admissions to [facility] of this 77-year-old lady because of urosepsis. HISTORY OF PRESENT ILLNESS: The patient resides where she has been in stable condition over the last several months. She is known to have several chronic medical syndromes, but has been stable on current medication. Two days prior to the present admission, developed low-grade fever and tachycardia syndrome progressively increased including dysuria and frequency. She came to [facility] ER where she was found to have fever, leukocytosis, and pyuria and the patient was admitted. PAST MEDICAL HISTORY: The patient underwent more than 30 years ago. The patient part of multiple sclerosis of systemic lupus. However, neither of those developed in the last 30 years. In addition, she has morbid obesity and COPD several years ago , the patient was found to have of the kidney and is being followed by a urologist, however, because mm in the last three years that was considered to be significant more aggressive intervention. ALLERGIES: No known drug allergies. MEDICATIONS: The patient is on multivitamin tablet daily, vitamin D 5000 daily. She is on chronic pain medication, is on tramadol or ibuprofen. FAMILY HISTORY: . She has no brother and no sisters. She has one daughter in good health. SOCIAL HISTORY: She is a . 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 HABITS: The patient did not smoke, drink, or use illicit drugs. REVIEW OF SYSTEMS: CARDIOVASCULAR: The patient denied any chest pain, shortness of breath, palpitations, or dizziness. PULMONARY: The patient denied any cough, wheezing, or expectoration. GASTROINTESTINAL: Her appetite is good. Her weight is stable. She has no dysphagia or dyspepsia. No bowel movement disorder. However, she did lose more than 20 pounds over the last six months for unknown cause. She did have workup several months ago includes CT scan of the chest, abdomen, and pelvis and tumor marker the result of this workup was negative. GENITOURINARY: The patient complained of dysuria, frequency, intermittent incontinence, and increased nocturia. JOINTS: The patient denies any pain, swelling, stiffness, cold extremities, photosensitivity, dry eyes, or alopecia. CENTRAL NERVOUS SYSTEM: Her sleep is of poor quality for many months. She has no numbness, tingling, seizure disorder, and has no headache. PHYSICAL EXAMINATION: VITAL SIGNS: Blood pressure is 129/73, pulse is 87, respirations were 20, and temperature 97.7. HEENT: Eyes were normal. Pupils were round, equal, and reactive to light. Sclerae was white. Conjunctiva was pink. Extraocular movements were normal. Temporal arteries were palpable bilaterally. There was no bilateral temporal wasting. Visual medina to confrontation were normal and neglect sign was negative. ENT, mucous membranes were not dehydrated. Auditory canals were clear and tympanic membranes could not be visualized. Nasal cavity was not congested. Nasal septum was intact. Soft palate was free of ulcerations. Pharynx was clear from exudate or tonsillar hypertrophy. Uvula steven to phonation. Tongue was moist, midline, and normally papillated. NECK: Supple. There was no goiter. No mass. No lymphadenopathy. There was no JVD. No bruits. Carotid upstroke was 2+. LUNGS: Clear. HEART: PMI was in the fifth left intercostal space in midclavicular line. There was normal S1 and normal S2. There was no murmur. No arrhythmia. No S3. No S4. No pericardial rub. ABDOMEN: Soft, nontender without organomegaly. There were no masses palpable. Normal bowel sounds without bruits. There was no guarding. No rebound tenderness. No ascites. No hernia. No CVA tenderness. Liver span was 8 cm, mostly nontender. EXTREMITIES: No cyanosis, no clubbing, and no edema. Extremities were warm. NEUROLOGICAL: Reflexes in biceps, triceps, and brachioradialis were symmetric and equal. Patellar retinaculum symmetric and equal. Plantars were declined. Cranial nerves II through XII were symmetric and equal. Cerebellar function, gait, [id number], rapid alternating movements, and Romberg sign could not performed by the patient. There was no tremor. No nystagmus. No extrapyramidal rigidity. Sensory exam to pinprick, cotton touch, position in the upper extremities normal and declined by the patient in the lower extremities. LABORATORY AND DIAGNOSTIC DATA: Laboratory data, hemoglobin is 15.3, hematocrit 45.5 with MCV of 92, WBC of 12.0, and platelets is 244,000. Her BUN and creatinine is 14 and 0.7 respectively. Sodium is 145, potassium 3.2, chloride 114, CO2 is 20, and is 2.1. Her calcium is 7.1 and phosphorus is 2.4. Magnesium is 1.4. Total protein was 7. ProBNP is 171. Albumin is 2.3 and total protein is 6. Amylase and lipase were within normal limits. Urinalysis contained 30-40 wbc's per high-power field, 5 to 10 rbc's per high-power filed, 1+ ketones, 5+ occult blood, 4+ urine protein, and bacteria was 90. Her INR was 1.1 and PTT was 25. Chest x-ray showed atelectasis in the right lower lobe, which were unchanged from prior exam that was taken in October. IMPRESSION AND PLAN: The patient has urosepsis. She is currently on cefepime 1 g IV piggyback q.12 h. and Levaquin 750 mg intravenous piggyback q.24 h. Urology cancer program consultant was called to assist in the management of this case. ordered as well as CT scan of the abdomen and pelvis. Repeat laboratory tests will be done in the a.m. Catalina Schultz M.D. DR: JYOTI JOB#: [id number] CC:
[2018-02-10 16:00] VITALS: BP 126/81
[2018-02-10] MEDS: Cefepime HCl 1 GM in D5W 110 ML IVPB SCH (17:01)
--- NOTE | 2018-02-10 17:02 | Diagnostic Imaging Report ---
Indication: Abdominal pain. History of renal cell carcinoma and hypertension Technique: US ABD Complete Comparison: 03/24/2016; CT of the abdomen 07/03/2016. Findings: Limited exam due to patient's body habitus and overlying bowel gas. This obscures the pancreas, the left lobe of the liver as well as degrades exam in general. Within these limitations the following observations are made: Pancreas is not well visualized due to overlying bowel gas. Liver appears normal in contour. Question hepatic steatosis although this is not definite. There is suggestion of some anechoic cystic structures in the liver which are poorly visualized. Gallbladder appears unremarkable. Sonographic [place] sign was reported as negative. No appreciable intrahepatic biliary ductal dilatation. The common bile duct measures 3 mm. The left kidney is poorly visualized. Echogenicity appears within normal limits. Known mass lesion at the upper pole the right kidney is suggested on the submitted images however again image quality is overall poor. This mass measures approximately 3.4 cm. There may be some internal vascularity. Unable to confidently assess for the presence or absence of hydronephrosis. Impression: Limited exam as above resulting in lack of visualization of certain structures and artifact or poor visualization of other structures. Known solid mass in the upper pole the right kidney is visualized and measures approximately 3.5 cm. Unable to confidently assess for the presence or absence of hydronephrosis. Multiple anechoic presumably cystic structures are partially visualized in the liver. Given limitations of the exam recommend further evaluation with contrast-enhanced CT of the abdomen and pelvis. This would provide a more reliable assessment for interval change.
--- NOTE | 2018-02-10 18:45 | Consultation ---
DATE OF CONSULTATION: 02/10/2018 CONSULTING PHYSICIAN: Bhupendra Murillo M.D. REFERRING PHYSICIAN: Catalina Schultz M.D. REASON FOR CONSULTATION: Followup of multiple urologic issues. HISTORY OF PRESENT ILLNESS: This is a 77-year-old, female. She is known to me from previous evaluations. She has a history of neurogenic bladder. She has a history of a very patulous urethra, history of chronic Shah, history of renal mass. She has paraplegia. She came to the hospital because of weakness and poor appetite. She has dysuria. Apparently, she had foul-smelling urine. Apparently, her Shah catheter was changed yesterday. Urology evaluation is requested. PAST MEDICAL HISTORY: Significant for above. The patient also has a history of coronary artery disease, hypertension, and history of paraplegia with multiple sclerosis. PAST SURGICAL HISTORY: Unknown. CURRENT MEDICATIONS: Here in the hospital, the patient is on levofloxacin, cefepime, Ultram, heparin, and vitamin D. ALLERGIES: To silicone. SOCIAL HISTORY: She is currently nonsmoker. FAMILY HISTORY: Noncontributory. REVIEW OF SYSTEMS: As above. PHYSICAL EXAMINATION: GENERAL: Elderly female, no acute distress. VITAL SIGNS: Temperature is 98 degrees, blood pressure is 129/72, pulse is 87, and respirations 22. HEENT: Normocephalic. NECK: Supple. ABDOMEN: Soft. No CVA tenderness. GENITOURINARY: Reveals Shah catheter in place. The new Shah is 18-Tajik. EXTREMITIES: Slightly contracted. LABORATORY AND DIAGNOSTIC DATA: Her UA on admission showed 5 to 10 rbc's, 30 to 40 wbc's, many bacteria. There was 4+ protein. White count is 7.9, hemoglobin is 13.3, and platelets are 200. Her BUN is 14 and creatinine 0.7. Diagnostic imaging studies, the patient had a CT scan of the chest, abdomen, and pelvis during her last admission in October and at that time, there was mention of an exophytic mass of the right kidney, which was measured to be about 2.9 cm. It had grown in size about 2.5 cm in 2016. There was a concern that this may be a malignancy. IMPRESSION: 1. History of urinary retention with chronic Shah. 2. Neurogenic bladder. 3. Pyuria, possible urinary tract infection and colonization. 4. Hematuria. 5. Proteinuria. 6. Right renal mass. PLAN AND DISCUSSION: Again as noted above, the patient does have a chronic Shah, apparently was exchanged yesterday. She usually has a large indwelling Shah, about 22 or 24-Tajik, but the one that was placed yesterday is 18, but apparently it has been draining well. She is to continue with antibiotics as ordered. She will be monitored clinically. The patient has not had followup for the renal mass and at some point, she may need to have excision of the mass versus continued surveillance. Thank you for this consultation. Bhupendra Murillo M.D. DR: JOSHUA JOB#: [id number] CC:
[2018-02-10 20:00] VITALS: BP 121/69
--- NOTE | 2018-02-10 23:31 | Progress Note ---
DATE: 02/10/2018 SUBJECTIVE: The patient is awake, alert, afebrile, and hemodynamically stable. PHYSICAL EXAMINATION: VITAL SIGNS: Blood pressure 133/69, pulse was 82, respirations 18, temperature 97.5. HEENT: Eyes were normal. ENT, mucous membranes were moist and intact. NECK: Supple with no JVD. No lymph nodes. LUNGS: Clear. HEART: Normal sounds with regular beats. ABDOMEN: Soft and nontender with normal bowel sounds. EXTREMITIES: Warm without cyanosis, clubbing, or edema LABORATORY AND DIAGNOSTIC DATA: Hemoglobin is 13.3, hematocrit 47.3 with MCV of 81, WBC of 7.9, and platelets are 200. His BUN and creatinine is 12 and 0.7 respectively. His sodium is 139, potassium 3.4, chloride 105, CO2 is 23. SGOT, SGPT, and alkaline phosphatase within normal limits. CRP is 7.1. Albumin is 2.7. Total protein is 6.7. TSH is 5.6 and T4 is normal. ultrasound is not available as of yet. IMPRESSION: The patient has markedly improved since yesterday; however, she still poor appetite. It appears the patient lost 20-30 pounds in the last 6 months, while the cause is unclear. He apparently was admitted to [facility] three months ago. Imaging study of the abdomen revealed no malignancy. The patient had urosepsis. We will continue with current antibiotics. Plan for discharge in the morning or the day after. I will be covered by Dr. Soriano. Catalina Schultz M.D. DR: Yovanny JOB#: [id number] CC:
[2018-02-11] VITALS: BP 125/56
[2018-02-11 04:00] VITALS: BP 125/61
--- NOTE | 2018-02-11 07:25 | Pulmonology Progress Note ---
Assessment/Plan Assessment/Plan ASSESSMENT Sepsis E coli urinary tract infection probable RLL pneumonia MS COPD paraplegia neurogenic bladder. right renal mass. hypokalemia PLAN of CARE abx, urine culture+ Ecoli, blood cx + SCON 08/04, likely contaminant afebrile, leuk resolved O2 titrate to keep pulse oximetry above 92 pulmonary toilet prn fup with CXR in am replace K, check K in am, Mg stable DVT prophylaxis pain management supportive care bowel regimen urologist seen and evaluated chronic Shah just exchanged fup as o/pt with renal mass: excision vs surveillance - per urology recs dietary eval ( patient reported losing weight ) transfer to [place] floor case discussed and evaluated by supervising physician Subjective Allergies: Coded Allergies: SILICONE (Unverified Allergy, Unknown, 09/18/15) Subjective leukocytosis resolved, afebrile Objective Last 24 Hour Vital Signs Date Time Temp Pulse Resp B/P (MAP) Pulse Ox O2 Delivery O2 Flow Rate FiO2 02/11/18 04:00 97.0 83 21 125/61 (82) 96 97.0 02/11/18 04:00 81 02/11/18 00:00 97.0 90 21 125/56 (79) 96 97.0 02/11/18 00:00 89 02/10/18 21:00 Room Air 02/10/18 20:00 79 02/10/18 20:00 97.3 96 18 121/69 (86) 97 97.3 02/10/18 16:00 98.3 74 18 126/81 (96) 97 98.3 02/10/18 16:00 79 02/10/18 12:00 80 02/10/18 12:00 97.6 78 18 129/79 (96) 98 97.6 02/10/18 09:00 Room Air 02/10/18 08:00 80 02/10/18 08:00 97.5 82 18 133/69 (90) 98 97.5 Intake and Output 02/10/18 02/11/18 19:00 07:00 Output Total 1100 ml 1000 ml Balance -1100 ml -1000 ml Output Urine Total 1100 ml 1000 ml General Appearance: no acute distress HEENT: normocephalic, atraumatic, anicteric, mucous membranes moist Respiratory/Chest: lungs clear, no respiratory distress, no accessory muscle use Cardiovascular: normal peripheral pulses, normal rate, no JVD Abdomen: normal bowel sounds, soft, non tender Extremities: no edema, pedal pulses normal Neurologic/Psychiatric: abnormal gait - bedridden , alert, responsive, other - paraplegia Musculoskeletal: atrophy - BLE Microbiology Date/Time Source Procedure Growth Status 02/09/18 13:03 Blood Blood Culture - Preliminary Staphylococcus Sp Coag Neg Resulted 02/09/18 12:45 Blood Blood Culture - Preliminary NO GROWTH AFTER 24 HOURS Resulted 02/09/18 13:03 Urine,Clean Catch Urine Culture - Preliminary Gram Negative Bacillus 1 Resulted Current Medications Medications (Trade) Dose Ordered Sig/Daysi Route PRN Reason Start Time Stop Time Status Last Admin Dose Admin Cefepime HCl 1 gm/ Dextrose 110 ml @ 220 mls/hr Q24H IVPB 02/10/18 13:30 02/17/18 13:29 02/10/18 17:01 Dextrose (Dextrose 50%) 25 ml STAT PRN IV Hypoglycemia 02/09/18 18:45 03/11/18 18:44 Dextrose (Dextrose 50%) 50 ml STAT PRN IV Hypoglycemia 02/09/18 18:45 03/11/18 18:44 Heparin Sodium (Porcine) (Heparin 5000 units/ml) 5,000 units EVERY 12 HOURS SUBQ 02/09/18 21:00 03/11/18 20:59 02/10/18 21:56 Levofloxacin 150 ml @ 100 mls/hr Q48H IVPB 02/11/18 14:00 02/18/18 13:59 Tramadol HCl (Ultram) 75 mg Q8H PRN ORAL Severe Breakthru Pain (>7) 02/10/18 01:15 02/17/18 01:14 02/10/18 03:08 Vitamin A/Vitamin D (A & D Oint) 1 applic EVERY 12 HOURS TOPIC 02/09/18 21:00 03/11/18 20:59 02/10/18 21:00 Sera Pfeiffer NP Feb 11, 2018 07:25
[2018-02-11 07:56] LABS: BASOPHILS % (AUTO) 0.5 % (0.0-2.0); EOSINOPHILS % (AUTO) 2.6 % (0.0-3.0); HEMATOCRIT 40.3 % (37.0-47.0); LYMPHOCYTES % (AUTO) 19.9 % (20.0-45.0); MEAN CORPUSCULAR VOLUME 81 FL (80-99); MONOCYTES % (AUTO) 9.9 % (1.0-10.0); NEUTROPHILS % (AUTO) 67.1 % (45.0-75.0); PLATELET COUNT 199 K/UL (150-450); RED BLOOD COUNT 4.96 M/UL (4.20-5.40); RED CELL DISTRIBUTION WIDTH 11.9 % (11.6-14.8); WHITE BLOOD COUNT 6.3 K/UL (4.8-10.8)
[2018-02-11 08:00] VITALS: BP 128/66
[2018-02-11 08:13] LABS: ALANINE AMINOTRANSFERASE 13 U/L (12-78); ALBUMIN 2.6 G/DL (3.4-5.0); ALBUMIN/GLOBULIN RATIO 0.7 (1.0-2.7); ALKALINE PHOSPHATASE 69 U/L (46-116); ANION GAP 8 mmol/L (5-15); ASPARTATE AMINO TRANSFERASE 15 U/L (15-37); BILIRUBIN,TOTAL 0.3 MG/DL (0.2-1.0); BLOOD UREA NITROGEN 9 mg/dL (7-18); CALCIUM 8.7 MG/DL (8.5-10.1); CARBON DIOXIDE 26 MMOL/L (21-32); CHLORIDE 107 MMOL/L (98-107); CREATININE 0.6 MG/DL (0.55-1.30); PHOSPHORUS 2.7 MG/DL (2.5-4.9); POTASSIUM 3.4 MMOL/L (3.5-5.1); SODIUM 141 MMOL/L (136-145)
[2018-02-11] MEDS: Vitamin A&D Oint 2oz Tube TOPIC SCH ×2 (09:00→22:10)
[2018-02-11] MEDS ORDERED: Albuterol/Ipratropium 3ml neb HHN PRN (09:00)
--- NOTE | 2018-02-11 09:08 | Urology Progress Note ---
Assessment/Plan Assessment/Plan 1. History of urinary retention with chronic Santillan. 2. Neurogenic bladder. 3. Pyuria, possible urinary tract infection and colonization. 4. Hematuria. 5. Proteinuria. 6. Right renal mass. santillan indwelling hand irrigated and do PRN abx as ordered serial renal imaging Subjective Allergies: Coded Allergies: SILICONE (Unverified Allergy, Unknown, 09/18/15) Subjective feels fair Objective Last 24 Hour Vital Signs Date Time Temp Pulse Resp B/P (MAP) Pulse Ox O2 Delivery O2 Flow Rate FiO2 02/11/18 04:00 97.0 83 21 125/61 (82) 96 97.0 02/11/18 04:00 81 02/11/18 00:00 97.0 90 21 125/56 (79) 96 97.0 02/11/18 00:00 89 02/10/18 21:00 Room Air 02/10/18 20:00 79 02/10/18 20:00 97.3 96 18 121/69 (86) 97 97.3 02/10/18 16:00 98.3 74 18 126/81 (96) 97 98.3 02/10/18 16:00 79 02/10/18 12:00 80 02/10/18 12:00 97.6 78 18 129/79 (96) 98 97.6 Intake and Output 02/10/18 02/11/18 18:59 06:59 Output Total 1100 ml 1000 ml Balance -1100 ml -1000 ml Output Urine Total 1100 ml 1000 ml Microbiology Date/Time Source Procedure Growth Status 02/09/18 13:03 Blood Blood Culture - Preliminary Staphylococcus Sp Coag Neg Resulted 02/09/18 13:03 Urine,Clean Catch Urine Culture - Final Escherichia Coli Complete Current Medications Medications (Trade) Dose Ordered Sig/Daysi Route PRN Reason Start Time Stop Time Status Last Admin Dose Admin Albuterol/ Ipratropium (Albuterol/ Ipratropium) 3 ml Q4HRT PRN HHN sob 02/11/18 09:00 02/16/18 08:59 UNV Cefepime HCl 1 gm/ Dextrose 110 ml @ 220 mls/hr Q24H IVPB 02/10/18 13:30 02/17/18 13:29 02/10/18 17:01 Dextrose (Dextrose 50%) 25 ml STAT PRN IV Hypoglycemia 02/09/18 18:45 8/11/18 18:44 Dextrose (Dextrose 50%) 50 ml STAT PRN IV Hypoglycemia 02/09/18 18:45 03/11/18 18:44 Heparin Sodium (Porcine) (Heparin 5000 units/ml) 5,000 units EVERY 12 HOURS SUBQ 02/09/18 21:00 03/11/18 20:59 02/10/18 21:56 Levofloxacin 150 ml @ 100 mls/hr Q48H IVPB 02/11/18 14:00 02/18/18 13:59 Tramadol HCl (Ultram) 75 mg Q8H PRN ORAL Severe Breakthru Pain (>7) 02/10/18 01:15 02/17/18 01:14 02/10/18 03:08 Vitamin A/Vitamin D (A & D Oint) 1 applic EVERY 12 HOURS TOPIC 02/09/18 21:00 03/11/18 20:59 02/10/18 21:00 Laboratory Tests 02/11/18 06:15: White Blood Count 6.3, Red Blood Count 4.96, Hemoglobin 13.0, Hematocrit 40.3, Mean Corpuscular Volume 81, Mean Corpuscular Hemoglobin 26.1L, Mean Corpuscular Hemoglobin Concent 32.1, Red Cell Distribution Width 11.9, Platelet Count 199, Mean Platelet Volume 9.0, Neutrophils (%) (Auto) 67.1, Lymphocytes (%) (Auto) 19.9L, Monocytes (%) (Auto) 9.9, Eosinophils (%) (Auto) 2.6, Basophils (%) (Auto ) 0.5, Sodium Level 141, Potassium Level 3.4L, Chloride Level 107, Carbon Dioxide Level 26, Anion Gap 8, Blood Urea Nitrogen 9, Creatinine 0.6, Estimat Glomerular Filtration Rate , Glucose Level 85, Calcium Level 8.7, Phosphorus Level 2.7, Magnesium Level 1.8, Total Bilirubin 0.3, Aspartate Amino Transf (AST /SGOT) 15, Alanine Aminotransferase (ALT/SGPT) 13, Alkaline Phosphatase 69, Total Protein 6.5, Albumin 2.6L, Globulin 3.9, Albumin/Globulin Ratio 0.7L Height (Feet): 5 Height (Inches): 0.50 Weight (Pounds): 180 Objective exam stable abdominal u/s noted BAMSHAD,MARCELA Feb 11, 2018 09:08
[2018-02-11] MEDS: Heparin 5000 units/ml inj SUBQ SCH ×2 (09:55→21:00)
[2018-02-11 12:00] VITALS: BP 126/70
[2018-02-11] MEDS: Cefepime HCl 1 GM in D5W 110 ML IVPB SCH (14:03)
[2018-02-11 16:00] VITALS: BP 145/75
[2018-02-11 20:00] VITALS: BP 142/76
[2018-02-12] VITALS: BP 146/73
[2018-02-12 04:00] VITALS: BP 144/65
[2018-02-12 07:43] LABS: BASOPHILS % (AUTO) 0.8 % (0.0-2.0); EOSINOPHILS % (AUTO) 4.7 % (0.0-3.0); HEMATOCRIT 41.4 % (37.0-47.0); HEMOGLOBIN 13.3 G/DL (12.0-16.0); LYMPHOCYTES % (AUTO) 25.5 % (20.0-45.0); MEAN CORPUSCULAR VOLUME 81 FL (80-99); MONOCYTES % (AUTO) 10.8 % (1.0-10.0); NEUTROPHILS % (AUTO) 58.2 % (45.0-75.0); PLATELET COUNT 227 K/UL (150-450); RED BLOOD COUNT 5.09 M/UL (4.20-5.40); WHITE BLOOD COUNT 4.8 K/UL (4.8-10.8)
[2018-02-12 08:00] VITALS: BP 140/77
--- NOTE | 2018-02-12 08:10 | Pulmonology Progress Note ---
Assessment/Plan Assessment/Plan ASSESSMENT Sepsis E coli urinary tract infection probable RLL pneumonia MS COPD paraplegia neurogenic bladder. right renal mass. hypokalemia PLAN of CARE abx, urine culture+ Ecoli, blood cx + SCON 08/04, likely contaminant afebrile, leuk resolved O2 titrate to keep pulse oximetry above 92 pulmonary toilet prn fup with CXR today monitor e/lytes and correct as needed DVT prophylaxis pain management supportive care bowel regimen urologist seen and evaluated chronic Shah just exchanged fup as o/pt with renal mass: excision vs surveillance - per urology recs dietary eval ( patient reported losing weight ) appreciated diet recs implement in POC transfer to MS floor dc in am case discussed and evaluated by supervising physician Subjective Allergies: Coded Allergies: SILICONE (Unverified Allergy, Unknown, 09/18/15) Subjective leukocytosis resolved, afebrile improving, still weak K-3.4 Objective Last 24 Hour Vital Signs Date Time Temp Pulse Resp B/P (MAP) Pulse Ox O2 Delivery O2 Flow Rate FiO2 02/12/18 04:00 97.0 86 20 144/65 (91) 98 97.0 02/12/18 00:00 97.8 89 21 146/73 (97) 97 97.8 02/11/18 21:00 Room Air 02/11/18 20:00 97.9 89 20 142/76 (98) 98 97.9 02/11/18 16:00 97.6 95 18 145/75 (98) 97 97.6 02/11/18 12:00 98.0 83 18 126/70 (88) 99 98.0 02/11/18 09:00 Room Air Intake and Output 02/11/18 02/12/18 19:00 07:00 Intake Total 720 ml Output Total 900 ml 1200 ml Balance -180 ml -1200 ml Intake Oral 460 ml IV Total 260 ml Output Urine Total 900 ml 1200 ml Objective General Appearance: no acute distress HEENT: normocephalic, atraumatic, anicteric, mucous membranes moist Respiratory/Chest: lungs clear, no respiratory distress, no accessory muscle use Cardiovascular: normal peripheral pulses, normal rate, no JVD Abdomen: normal bowel sounds, soft, non tender Extremities: no edema, pedal pulses normal Neurologic/Psychiatric: abnormal gait - bedridden , alert, responsive, other - paraplegia Musculoskeletal: atrophy - BLE Microbiology Date/Time Source Procedure Growth Status 02/09/18 13:03 Blood Blood Culture - Final Staphylococcus Sp Coag Neg Complete 02/09/18 12:45 Blood Blood Culture - Preliminary NO GROWTH AFTER 48 HOURS Resulted 02/09/18 13:03 Urine,Clean Catch Urine Culture - Final Escherichia Coli Complete Laboratory Tests 02/12/18 06:00: White Blood Count 4.8, Red Blood Count 5.09, Hemoglobin 13.3, Hematocrit 41.4, Mean Corpuscular Volume 81, Mean Corpuscular Hemoglobin 26.0L, Mean Corpuscular Hemoglobin Concent 32.0, Red Cell Distribution Width 12.0, Platelet Count 227, Mean Platelet Volume 8.6, Neutrophils (%) (Auto) 58.2, Lymphocytes (%) (Auto) 25.5, Monocytes (%) (Auto) 10.8H, Eosinophils (%) (Auto) 4.7H, Basophils (%) ( Auto) 0.8, Sodium Level [Pending], Potassium Level [Pending], Chloride Level [ Pending], Carbon Dioxide Level [Pending], Blood Urea Nitrogen [Pending], Creatinine [Pending], Estimat Glomerular Filtration Rate [Pending], Glucose Level [Pending], Calcium Level [Pending] Current Medications Medications (Trade) Dose Ordered Sig/Daysi Route PRN Reason Start Time Stop Time Status Last Admin Dose Admin Albuterol/ Ipratropium (Albuterol/ Ipratropium) 3 ml Q4HRT PRN HHN sob 02/11/18 09:00 02/16/18 08:59 Cefepime HCl 1 gm/ Dextrose 110 ml @ 220 mls/hr Q24H IVPB 02/10/18 13:30 02/17/18 13:29 02/11/18 14:03 Dextrose (Dextrose 50%) 25 ml STAT PRN IV Hypoglycemia 02/09/18 18:45 03/11/18 18:44 Dextrose (Dextrose 50%) 50 ml STAT PRN IV Hypoglycemia 02/09/18 18:45 03/11/18 18:44 Heparin Sodium (Porcine) (Heparin 5000 units/ml) 5,000 units EVERY 12 HOURS SUBQ 02/09/18 21:00 03/11/18 20:59 02/11/18 21:00 Levofloxacin 150 ml @ 100 mls/hr Q48H IVPB 02/11/18 14:00 02/18/18 13:59 02/11/18 14:37 Tramadol HCl (Ultram) 75 mg Q8H PRN ORAL Severe Breakthru Pain (>7) 02/10/18 01:15 02/17/18 01:14 02/10/18 03:08 Vitamin A/Vitamin D (A & D Oint) 1 applic EVERY 12 HOURS TOPIC 02/09/18 21:00 03/11/18 20:59 02/11/18 22:10 Sera Pfeiffer LOT TECHNICIAN Feb 12, 2018 08:10
[2018-02-12 08:20] LABS: ANION GAP 10 mmol/L (5-15); BLOOD UREA NITROGEN 5 mg/dL (7-18); CALCIUM 9.1 MG/DL (8.5-10.1); CARBON DIOXIDE 25 MMOL/L (21-32); CHLORIDE 108 MMOL/L (98-107); CREATININE 0.6 MG/DL (0.55-1.30); POTASSIUM 3.4 MMOL/L (3.5-5.1); SODIUM 143 MMOL/L (136-145)
[2018-02-12] MEDS: Vitamin A&D Oint 2oz Tube TOPIC SCH ×2 (08:47→21:00)
[2018-02-12] MEDS: Heparin 5000 units/ml inj SUBQ SCH ×2 (08:47→22:24)
--- NOTE | 2018-02-12 09:11 | Urology Progress Note ---
Assessment/Plan Assessment/Plan 1. History of urinary retention with chronic Santillan. 2. Neurogenic bladder. 3. Pyuria, possible urinary tract infection and colonization. 4. Hematuria. 5. Proteinuria. 6. Right renal mass. santillan indwelling hand irrigated and do PRN abx as ordered serial renal imaging Subjective Allergies: Coded Allergies: SILICONE (Unverified Allergy, Unknown, 09/18/15) Subjective feels fair Objective Last 24 Hour Vital Signs Date Time Temp Pulse Resp B/P (MAP) Pulse Ox O2 Delivery O2 Flow Rate FiO2 02/12/18 04:00 97.0 86 20 144/65 (91) 98 97.0 02/12/18 00:00 97.8 89 21 146/73 (97) 97 97.8 02/11/18 21:00 Room Air 02/11/18 20:00 97.9 89 20 142/76 (98) 98 97.9 02/11/18 16:00 97.6 95 18 145/75 (98) 97 97.6 02/11/18 12:00 98.0 83 18 126/70 (88) 99 98.0 Intake and Output 02/11/18 02/12/18 19:00 07:00 Intake Total 720 ml Output Total 900 ml 1200 ml Balance -180 ml -1200 ml Intake Oral 460 ml IV Total 260 ml Output Urine Total 900 ml 1200 ml Microbiology Date/Time Source Procedure Growth Status 02/09/18 13:03 Blood Blood Culture - Final Staphylococcus Sp Coag Neg Complete 02/09/18 13:03 Urine,Clean Catch Urine Culture - Final Escherichia Coli Complete Current Medications Medications (Trade) Dose Ordered Sig/Daysi Route PRN Reason Start Time Stop Time Status Last Admin Dose Admin Albuterol/ Ipratropium (Albuterol/ Ipratropium) 3 ml Q4HRT PRN HHN sob 02/11/18 09:00 02/16/18 08:59 Cefepime HCl 1 gm/ Dextrose 110 ml @ 220 mls/hr Q24H IVPB 02/10/18 13:30 02/17/18 13:29 02/11/18 14:03 Dextrose (Dextrose 50%) 25 ml STAT PRN IV Hypoglycemia 02/09/18 18:45 03/11/18 18:44 Dextrose (Dextrose 50%) 50 ml STAT PRN IV Hypoglycemia 02/09/18 18:45 03/11/18 18:44 Heparin Sodium (Porcine) (Heparin 5000 units/ml) 5,000 units EVERY 12 HOURS SUBQ 02/09/18 21:00 03/11/18 20:59 02/12/18 08:47 Levofloxacin 150 ml @ 100 mls/hr Q48H IVPB 02/11/18 14:00 02/18/18 13:59 02/11/18 14:37 Tramadol HCl (Ultram) 75 mg Q8H PRN ORAL Severe Breakthru Pain (>7) 02/10/18 01:15 02/17/18 01:14 02/10/18 03:08 Vitamin A/Vitamin D (A & D Oint) 1 applic EVERY 12 HOURS TOPIC 02/09/18 21:00 03/11/18 20:59 02/12/18 08:47 Laboratory Tests 02/12/18 06:00: White Blood Count 4.8, Red Blood Count 5.09, Hemoglobin 13.3, Hematocrit 41.4, Mean Corpuscular Volume 81, Mean Corpuscular Hemoglobin 26.0L, Mean Corpuscular Hemoglobin Concent 32.0, Red Cell Distribution Width 12.0, Platelet Count 227, Mean Platelet Volume 8.6, Neutrophils (%) (Auto) 58.2, Lymphocytes (%) (Auto) 25.5, Monocytes (%) (Auto) 10.8H, Eosinophils (%) (Auto) 4.7H, Basophils (%) ( Auto) 0.8, Sodium Level 143, Potassium Level 3.4L, Chloride Level 108H, Carbon Dioxide Level 25, Anion Gap 10, Blood Urea Nitrogen 5L, Creatinine 0.6, Estimat Glomerular Filtration Rate , Glucose Level 80, Calcium Level 9.1 Height (Feet): 5 Height (Inches): 0.50 Weight (Pounds): 180 Objective exam stable abdominal u/s noted MARCELA LAUGHLIN Feb 12, 2018 09:11
--- NOTE | 2018-02-12 10:37 | Diagnostic Imaging Report ---
History: SOB Exam: XR CXR 1 VIEW Comparison: 02/09/2018 FINDINGS: There is again elevation of the right hemidiaphragm now with mild increase in the collapse and atelectasis with possible small effusion seen. The left lung remains clear. The patient is rotated to the right. The cardiac and mediastinal contours appear unchanged. Possible intra- articular osseous body left shoulder. IMPRESSION: There is again elevation of the right hemidiaphragm now with mild increase in the collapse and atelectasis with possible small effusion seen. The left lung remains clear. The patient is rotated to the right.
[2018-02-12] MEDS: traMADol 50mg tab ORAL PRN (10:44)
[2018-02-12 12:00] VITALS: BP 145/74
--- NOTE | 2018-02-12 12:20 | Cardiology Report ---
APPROVED REPORT EKG Measurement Heart [id number] CO [id number] [id number] Sinus tachycardia with premature atrial complexes Otherwise normal ECG
[2018-02-12 15:46] VITALS: BP 147/78
[2018-02-12 20:00] VITALS: BP 152/71
[2018-02-13] VITALS: BP 144/84
[2018-02-13 04:00] VITALS: BP 152/82
[2018-02-13 07:20] LABS: BASOPHILS % (AUTO) 1.6 % (0.0-2.0); LYMPHOCYTES % (AUTO) 23.4 % (20.0-45.0); MEAN CORPUSCULAR VOLUME 81 FL (80-99); MONOCYTES % (AUTO) 12.9 % (1.0-10.0); NEUTROPHILS % (AUTO) 57.2 % (45.0-75.0); PLATELET COUNT 234 K/UL (150-450); RED BLOOD COUNT 5.29 M/UL (4.20-5.40); WHITE BLOOD COUNT 4.6 K/UL (4.8-10.8)
[2018-02-13 07:54] LABS: ANION GAP 5 mmol/L (5-15); BLOOD UREA NITROGEN 5 mg/dL (7-18); CARBON DIOXIDE 27 MMOL/L (21-32); CHLORIDE 108 MMOL/L (98-107); CREATININE 0.7 MG/DL (0.55-1.30); POTASSIUM 4.2 MMOL/L (3.5-5.1); SODIUM 140 MMOL/L (136-145)
[2018-02-13 08:00] VITALS: BP 153/73
--- NOTE | 2018-02-13 08:14 | Urology Progress Note ---
Assessment/Plan Assessment/Plan 1. History of urinary retention with chronic Santillan. 2. Neurogenic bladder. 3. Pyuria, possible urinary tract infection and colonization. 4. Hematuria. 5. Proteinuria. 6. Right renal mass. santillan indwelling hand irrigate PRN abx as ordered serial renal imaging Subjective Allergies: Coded Allergies: SILICONE (Unverified Allergy, Unknown, 09/18/15) Subjective feels fair Objective Last 24 Hour Vital Signs Date Time Temp Pulse Resp B/P (MAP) Pulse Ox O2 Delivery O2 Flow Rate FiO2 02/13/18 04:00 98.6 85 21 152/82 (105) 98 98.6 02/13/18 00:00 97.5 82 20 144/84 (104) 98 97.5 02/12/18 21:00 Room Air 02/12/18 20:00 97.9 79 20 152/71 (98) 98 97.9 02/12/18 17:32 98 Room Air 21 02/12/18 15:46 97.7 80 19 147/78 (101) 98 97.7 02/12/18 12:00 97.5 88 20 145/74 (97) 97 97.5 02/12/18 09:00 Room Air Intake and Output 02/12/18 02/13/18 19:00 07:00 Intake Total 900 ml 500 ml Output Total 800 ml 800 ml Balance 100 ml -300 ml Intake Oral 900 ml 500 ml Output Urine Total 800 ml 800 ml # Bowel Movements 1 Microbiology Date/Time Source Procedure Growth Status 02/09/18 13:03 Blood Blood Culture - Final Staphylococcus Sp Coag Neg Complete 02/09/18 13:03 Urine,Clean Catch Urine Culture - Final Escherichia Coli Complete Current Medications Medications (Trade) Dose Ordered Sig/Daysi Route PRN Reason Start Time Stop Time Status Last Admin Dose Admin Albuterol/ Ipratropium (Albuterol/ Ipratropium) 3 ml Q4HRT PRN HHN sob 02/11/18 09:00 02/16/18 08:59 Dextrose (Dextrose 50%) 25 ml STAT PRN IV Hypoglycemia 02/09/18 18:45 03/11/18 18:44 Dextrose (Dextrose 50%) 50 ml STAT PRN IV Hypoglycemia 02/09/18 18:45 03/11/18 18:44 Heparin Sodium (Porcine) (Heparin 5000 units/ml) 5,000 units EVERY 12 HOURS SUBQ 02/09/18 21:00 03/11/18 20:59 02/12/18 22:24 Levofloxacin 150 ml @ 100 mls/hr Q48H IVPB 02/11/18 14:00 02/18/18 13:59 02/11/18 14:37 Tramadol HCl (Ultram) 75 mg Q8H PRN ORAL Severe Breakthru Pain (>7) 02/10/18 01:15 02/17/18 01:14 02/12/18 10:44 Vitamin A/Vitamin D (A & D Oint) 1 applic EVERY 12 HOURS TOPIC 02/09/18 21:00 03/11/18 20:59 02/12/18 21:00 Laboratory Tests 02/13/18 06:15: White Blood Count 4.6L, Red Blood Count 5.29, Hemoglobin 14.0, Hematocrit 43.0, Mean Corpuscular Volume 81, Mean Corpuscular Hemoglobin 26.6L, Mean Corpuscular Hemoglobin Concent 32.7, Red Cell Distribution Width 12.0, Platelet Count 234, Mean Platelet Volume 7.8, Neutrophils (%) (Auto) 57.2, Lymphocytes (%) (Auto) 23.4, Monocytes (%) (Auto) 12.9H, Eosinophils (%) (Auto) 5.0H, Basophils (%) ( Auto) 1.6, Sodium Level 140, Potassium Level 4.2, Chloride Level 108H, Carbon Dioxide Level 27, Anion Gap 5, Blood Urea Nitrogen 5L, Creatinine 0.7, Estimat Glomerular Filtration Rate , Glucose Level 86, Calcium Level 9.0 Height (Feet): 5 Height (Inches): 0.50 Weight (Pounds): 180 Objective exam stable abdominal u/s noted MARCELA LAUGHLIN Feb 13, 2018 08:13
[2018-02-13] MEDS: Vitamin A&D Oint 2oz Tube TOPIC SCH ×2 (08:48→21:00)
[2018-02-13] MEDS: Heparin 5000 units/ml inj SUBQ SCH ×2 (08:48→22:44)
[2018-02-13] MEDS: traMADol 50mg tab ORAL PRN (09:35)
--- NOTE | 2018-02-13 11:20 | Pulmonology Progress Note ---
Assessment/Plan Problems: (1) Sepsis (2) COPD (chronic obstructive pulmonary disease) (3) Right lower lobe pneumonia (4) Multiple sclerosis (5) Paraplegia Assessment/Plan check stool for Ova and parasites continue abx check cultures CEA elevated b/o ? renal tumor Subjective ROS Limited/Unobtainable: No Constitutional: Reports: no symptoms HEENT: Repors: no symptoms Respiratory: Reports: no symptoms Cardiovascular: Reports: no symptoms Allergies: Coded Allergies: SILICONE (Unverified Allergy, Unknown, 09/18/15) Objective Last 24 Hour Vital Signs Date Time Temp Pulse Resp B/P (MAP) Pulse Ox O2 Delivery O2 Flow Rate FiO2 02/13/18 09:00 Room Air 02/13/18 08:00 96.6 77 18 153/73 (99) 99 96.6 02/13/18 04:00 98.6 85 21 152/82 (105) 98 98.6 02/13/18 00:00 97.5 82 20 144/84 (104) 98 97.5 02/12/18 21:00 Room Air 02/12/18 20:00 97.9 79 20 152/71 (98) 98 97.9 02/12/18 17:32 98 Room Air 21 02/12/18 15:46 97.7 80 19 147/78 (101) 98 97.7 02/12/18 12:00 97.5 88 20 145/74 (97) 97 97.5 Intake and Output 02/12/18 02/13/18 19:00 07:00 Intake Total 900 ml 500 ml Output Total 800 ml 800 ml Balance 100 ml -300 ml Intake Oral 900 ml 500 ml Output Urine Total 800 ml 800 ml # Bowel Movements 1 General Appearance: WD/WN HEENT: normocephalic Respiratory/Chest: chest wall non-tender, lungs clear Breasts: no masses Cardiovascular: normal peripheral pulses Abdomen: normal bowel sounds, soft, non tender Genitourinary: normal external genitalia Extremities: no clubbing 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 II-XII grossly normal, abnormal gait Laboratory Tests 02/13/18 06:15: White Blood Count 4.6L, Red Blood Count 5.29, Hemoglobin 14.0, Hematocrit 43.0, Mean Corpuscular Volume 81, Mean Corpuscular Hemoglobin 26.6L, Mean Corpuscular Hemoglobin Concent 32.7, Red Cell Distribution Width 12.0, Platelet Count 234, Mean Platelet Volume 7.8, Neutrophils (%) (Auto) 57.2, Lymphocytes (%) (Auto) 23.4, Monocytes (%) (Auto) 12.9H, Eosinophils (%) (Auto) 5.0H, Basophils (%) ( Auto) 1.6, Sodium Level 140, Potassium Level 4.2, Chloride Level 108H, Carbon Dioxide Level 27, Anion Gap 5, Blood Urea Nitrogen 5L, Creatinine 0.7, Estimat Glomerular Filtration Rate , Glucose Level 86, Calcium Level 9.0 Current Medications Medications (Trade) Dose Ordered Sig/Daysi Route PRN Reason Start Time Stop Time Status Last Admin Dose Admin Albuterol/ Ipratropium (Albuterol/ Ipratropium) 3 ml Q4HRT PRN HHN sob 02/11/18 09:00 02/16/18 08:59 Dextrose (Dextrose 50%) 25 ml STAT PRN IV Hypoglycemia 02/09/18 18:45 03/11/18 18:44 Dextrose (Dextrose 50%) 50 ml STAT PRN IV Hypoglycemia 02/09/18 18:45 03/11/18 18:44 Heparin Sodium (Porcine) (Heparin 5000 units/ml) 5,000 units EVERY 12 HOURS SUBQ 02/09/18 21:00 03/11/18 20:59 02/13/18 08:48 Levofloxacin 150 ml @ 100 mls/hr Q48H IVPB 02/11/18 14:00 02/18/18 13:59 02/11/18 14:37 Tramadol HCl (Ultram) 75 mg Q8H PRN ORAL Severe Breakthru Pain (>7) 02/10/18 01:15 02/17/18 01:14 02/13/18 09:35 Vitamin A/Vitamin D (A & D Oint) 1 applic EVERY 12 HOURS TOPIC 02/09/18 21:00 03/11/18 20:59 02/13/18 08:48 Lawrence Soriano MD Feb 13, 2018 11:20
[2018-02-13 12:00] VITALS: BP 138/73
--- NOTE | 2018-02-13 12:15 | Consultation ---
DATE OF CONSULTATION: 02/12/2018 HEMATOLOGY/ONCOLOGY CONSULTATION CONSULTING PHYSICIAN: Jesse Hall M.D. REFERRING PHYSICIAN: Catalina Schultz M.D. REASON FOR CONSULTATION: Evaluation of right bladder mass. IDENTIFYING DATA: Dear Dr. Schultz: Thank you for the courtesy of this consultation. The patient is a pleasant 77-year-old female, I have seen her in the past with history of bladder mass and admitted several months ago. Has a history of history of DVT of the right lower extremity as well. Reviewed the patient's imaging on 11/24/2017, has acute thrombus in the superficial femoral vein of the right leg. The patient has not received any anticoagulation recently. Hematology Service consulted for further evaluation and treatment as well for her underlying disorder. 01:17 the patient apparently has a small urine as well. PAST MEDICAL HISTORY: DVT, CAD, paraplegia and multiple sclerosis. PAST SURGICAL HISTORY: None noted. CURRENT MEDICATIONS: Levofloxacin, Ultram, heparin, vitamin D, and cefepime. ALLERGIES: Silicone. SOCIAL HISTORY: Currently nonsmoker. FAMILY HISTORY: Noncontributory. REVIEW OF SYSTEMS: Difficult to obtain given the patient's current mental status. PHYSICAL EXAMINATION: VITAL SIGNS: Reviewed. GENERAL: No acute distress. PULMONARY: Decreased breath sounds. CARDIOVASCULAR: Regular rate. No S3 or S4. ABDOMEN: Soft, nontender, and nondistended. EXTREMITIES: No cyanosis, swelling or edema noted. Atrophy of lower extremities. LABORATORY AND DIAGNOSTIC DATA: WBC 01:58, hemoglobin 14.3, platelet count 227,000. BUN of 5, creatinine of 0.6. INR 1.1. Urinalysis revealed urine rbc's, wbc's present. Abdominal ultrasound reviewed. Multiple 02:14 in the liver. Solid mass 02:20 . ASSESSMENT AND RECOMMENDATIONS: 1. Renal mass. Further evaluate per Urology Service. 2. History of urinary retention. Serial imaging as needed. Irrigation with hand as needed. 3. Deep venous thrombosis of the lower extremity. Obtain venous duplex. The patient has a history of DVT. Completed 3 months of anticoagulation. 4. Anemia due to history of hematuria. 5. Proteinuria. 6. Urinary tract infection with underlying infection. 7. Multiple sclerosis. 8. Hypokalemia. I Appreciate consultation. Jesse Hall M.D. DR: BRITTNI JOB#: [id number] CC:
--- NOTE | 2018-02-13 12:39 | General Progress Note ---
Assessment/Plan Status: stable Assessment/Plan # Anemia due to history of hematuria. --> Continue to closely monitor --> Anemia w/u has been reviewed. --> Hgb goal >7 --> Currently stable. # Deep venous thrombosis of the lower extremity. --> Venous duplex pending. --> The patient has a history of DVT. Completed 3 months of anticoagulation. # Proteinuria. # Renal mass. Further evaluate per Urology Service. # History of urinary retention. Serial imaging as needed. Irrigation with hand as needed. # Urinary tract infection with underlying infection. # Multiple sclerosis. # Hypokalemia. The time the note was entered does not necessarily correspond to the time the patient was seen. Subjective Date patient seen: Feb 13, 2018 Allergies: Coded Allergies: SILICONE (Unverified Allergy, Unknown, 09/18/15) All Systems: reviewed and negative except above Subjective Patient transferred to CT via hospital bed. Family informed of transfer. Stable condition. Objective Last 24 Hour Vital Signs Date Time Temp Pulse Resp B/P (MAP) Pulse Ox O2 Delivery O2 Flow Rate FiO2 02/13/18 09:00 Room Air 02/13/18 08:00 96.6 77 18 153/73 (99) 99 96.6 02/13/18 04:00 98.6 85 21 152/82 (105) 98 98.6 02/13/18 00:00 97.5 82 20 144/84 (104) 98 97.5 02/12/18 21:00 Room Air 02/12/18 20:00 97.9 79 20 152/71 (98) 98 97.9 02/12/18 17:32 98 Room Air 21 02/12/18 15:46 97.7 80 19 147/78 (101) 98 97.7 Intake and Output 02/12/18 02/13/18 19:00 07:00 Intake Total 900 ml 500 ml Output Total 800 ml 800 ml Balance 100 ml -300 ml Intake Oral 900 ml 500 ml Output Urine Total 800 ml 800 ml # Bowel Movements 1 Laboratory Tests 02/13/18 06:15: White Blood Count 4.6L, Red Blood Count 5.29, Hemoglobin 14.0, Hematocrit 43.0, Mean Corpuscular Volume 81, Mean Corpuscular Hemoglobin 26.6L, Mean Corpuscular Hemoglobin Concent 32.7, Red Cell Distribution Width 12.0, Platelet Count 234, Mean Platelet Volume 7.8, Neutrophils (%) (Auto) 57.2, Lymphocytes (%) (Auto) 23.4, Monocytes (%) (Auto) 12.9H, Eosinophils (%) (Auto) 5.0H, Basophils (%) ( Auto) 1.6, Sodium Level 140, Potassium Level 4.2, Chloride Level 108H, Carbon Dioxide Level 27, Anion Gap 5, Blood Urea Nitrogen 5L, Creatinine 0.7, Estimat Glomerular Filtration Rate , Glucose Level 86, Calcium Level 9.0 Height (Feet): 5 Height (Inches): 0.50 Weight (Pounds): 180 General Appearance: no apparent distress EENT: PERRL/EOMI Neck: normal alignment Cardiovascular: normal peripheral pulses Respiratory/Chest: no respiratory distress Abdomen: no organomegaly Jesse Hall MD Feb 13, 2018 12:39
--- NOTE | 2018-02-13 13:03 | Consultation ---
History of Present Illness General Date patient seen: Feb 13, 2018 Chief Complaint: Female Urogenital Problems Present Illness HPI 77 y/o F with hx of RLE DVT, CAD, paraplegia, HTN, MS, urinary retention 2ry to neurogenic bladder on chronic Shah, anemia, UTI, R renal mass presents to ED on 02/09 with weakness, poor appetite and dysuria w/ foul smelling urine. 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 Also complained of pressure like pain on LLQ. No NVD, chest pain, cough, sore throat, joint pain, headache, depression. Allergies: Coded Allergies: SILICONE (Unverified Allergy, Unknown, 09/18/15) Medication History Scheduled Ascorbic Acid* (Vitamin C*), 500 MG ORAL DAILY, (Reported) Baclofen* (Baclofen*), 10 MG ORAL DAILY, (Reported) Bimatoprost (Lumigan), 1 DROP BOTH EYES DAILY, (Reported) Bisoprolol Fumarate* (Zebeta*), 5 MG ORAL DAILY, (Reported) Clopidogrel Bisulfate* (Plavix*), 75 MG ORAL DAILY, (Reported) Metoprolol Succinate* (Metoprolol Succinate*), 100 MG ORAL DAILY, (Reported) Rosuvastatin Calcium* (Crestor*), 10 MG ORAL QHS, (Reported) Sulindac* (Clinoril*), 200 MG PO BID, (Reported) Zinc Sulfate (Zinc Sulfate*), 220 MG ORAL DAILY, (Reported) Scheduled PRN Oxymetazoline HCl (Afrin), 1 SPRAY NASAL DAILY PRN for p, (Reported) Discontinued Medications Levofloxacin* (Levaquin*), 500 MG ORAL DAILY, (Reported) Discontinued Reason: Therapy completed Patient History Healthcare decision maker Resuscitation status Full Code Advanced Directive on File Patient History Narrative Pmhx: as above Shx: She is a . 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 Fhx: non contributory Review of Systems All Other Systems: negative except mentioned in HPI Physical Exam Physical Exam Narrative GENERAL: No acute distress. PULMONARY: Decreased breath sounds. CARDIOVASCULAR: Regular rate. No S3 or S4. ABDOMEN: Soft, nontender, and nondistended. EXTREMITIES: No cyanosis, swelling or edema noted. Atrophy of lower extremities. Last 24 Hour Vital Signs Date Time Temp Pulse Resp B/P (MAP) Pulse Ox O2 Delivery O2 Flow Rate FiO2 02/13/18 09:00 Room Air 02/13/18 08:00 96.6 77 18 153/73 (99) 99 96.6 02/13/18 04:00 98.6 85 21 152/82 (105) 98 98.6 02/13/18 00:00 97.5 82 20 144/84 (104) 98 97.5 02/12/18 21:00 Room Air 02/12/18 20:00 97.9 79 20 152/71 (98) 98 97.9 02/12/18 17:32 98 Room Air 21 02/12/18 15:46 97.7 80 19 147/78 (101) 98 97.7 Intake and Output 02/12/18 02/13/18 19:00 07:00 Intake Total 900 ml 500 ml Output Total 800 ml 800 ml Balance 100 ml -300 ml Intake Oral 900 ml 500 ml Output Urine Total 800 ml 800 ml # Bowel Movements 1 Laboratory Tests Test 02/13/18 06:15 White Blood Count 4.6 K/UL (4.8-10.8) L Red Blood Count 5.29 M/UL (4.20-5.40) Hemoglobin 14.0 G/DL (12.0-16.0) Hematocrit 43.0 % (37.0-47.0) Mean Corpuscular Volume 81 FL (80-99) Mean Corpuscular Hemoglobin 26.6 PG (27.0-31.0) L Mean Corpuscular Hemoglobin Concent 32.7 G/DL (32.0-36.0) Red Cell Distribution Width 12.0 % (11.6-14.8) Platelet Count 234 K/UL (150-450) Mean Platelet Volume 7.8 FL (6.5-10.1) Neutrophils (%) (Auto) 57.2 % (45.0-75.0) Lymphocytes (%) (Auto) 23.4 % (20.0-45.0) Monocytes (%) (Auto) 12.9 % (1.0-10.0) H Eosinophils (%) (Auto) 5.0 % (0.0-3.0) H Basophils (%) (Auto) 1.6 % (0.0-2.0) Sodium Level 140 MMOL/L (136-145) Potassium Level 4.2 MMOL/L (3.5-5.1) Chloride Level 108 MMOL/L (98-107) H Carbon Dioxide Level 27 MMOL/L (21-32) Anion Gap 5 mmol/L (5-15) Blood Urea Nitrogen 5 mg/dL (7-18) L Creatinine 0.7 MG/DL (0.55-1.30) Estimat Glomerular Filtration Rate mL/min (>60) Glucose Level 86 MG/DL (74-106) Calcium Level 9.0 MG/DL (8.5-10.1) Height (Feet): 5 Height (Inches): 0.50 Weight (Pounds): 180 Medications Current Medications Medications (Trade) Dose Ordered Sig/Daysi Route PRN Reason Start Time Stop Time Status Last Admin Dose Admin Albuterol/ Ipratropium (Albuterol/ Ipratropium) 3 ml Q4HRT PRN HHN sob 02/13/18 15:00 02/16/18 08:59 UNV Dextrose (Dextrose 50%) 25 ml STAT PRN IV Hypoglycemia 02/13/18 18:45 03/11/18 18:44 UNV Dextrose (Dextrose 50%) 50 ml STAT PRN IV Hypoglycemia 02/13/18 18:45 03/11/18 18:44 UNV Heparin Sodium (Porcine) (Heparin 5000 units/ml) 5,000 units EVERY 12 HOURS SUBQ 02/13/18 21:00 03/11/18 20:59 UNV Levofloxacin 150 ml @ 100 mls/hr Q48H IVPB 02/13/18 14:00 02/18/18 13:59 UNV Tramadol HCl (Ultram) 75 mg Q8H PRN ORAL Severe Breakthru Pain (>7) 02/13/18 17:15 02/17/18 01:14 UNV Vitamin A/Vitamin D (A & D Oint) 1 applic EVERY 12 HOURS TOPIC 02/13/18 21:00 03/11/18 20:59 UNV Assessment/Plan Assessment/Plan Abx: Levaquin 02/09; 02/11- Cefepime 02/09-02/10 IV vanco x1 02/09 Assessment: UTI -u/a wbc 30-40, nit +, leuk +3; ucx >100K E.coli (R amp, bactrim; otherwise S) Afebrile, no leukocytosis Abd pain -ABD US: Limited exam as above resulting in lack of visualization of certain structures and artifact or poor visualization of other structures. Known solid mass in the upper pole the right kidney is visualized and measures approximately 3.5 cm. Unable to confidently assess for the presence or absence of hydronephrosis. Multiple anechoic presumably cystic structures are partially visualized in the liver.Given limitations of the exam recommend further evaluation with contrast-enhanced CT of the abdomen and pelvis. This would provide a more reliable assessment for interval change. -CXR: There is again elevation of the right hemidiaphragm now with mild increase in the collapse and atelectasis with possible small effusion seen. The left lung remains clear. RLE DVT CAD paraplegia HTN MS urinary retention 2ry to neurogenic bladder on chronic Shah anemia hx of UTI (E.coli 2015) R renal mass Plan: -Continue LEvaquin #5/10 but switch to PO -ok to discharge on this regimen -f/u cx -Monitor CBC/CMP, temperatures -Shah cath care -aspiration precautions Thank you for this consultation. Will continue to follow along with you. Discussed with RN and Zoraida Torres M.D. Feb 13, 2018 13:03
[2018-02-13] MEDS ORDERED: LEVOFLOXACIN500 MG ORAL (13:32)
[2018-02-13] MEDS ORDERED: Albuterol/Ipratropium 3ml neb HHN PRN (15:00)
[2018-02-13 16:00] VITALS: BP 124/73
[2018-02-13] MEDS: Levofloxacin 500mg tab ORAL SCH (16:01)
--- NOTE | 2018-02-13 18:07 | GI Initial Consult Note ---
History of Present Illness General Date patient seen: Feb 13, 2018 Time patient seen: 18:01 Reason for Hospitalization: Female Urogenital Problems Referring physician: MARJAN PALACIOS Reason for Consultation: Abdominal Pain Present Illness HPI Patient presents with weakness and not eating. She also has dysuria. She has an indwelling Shah urine is foul smelling. She's not taking antibiotics. This is been worsening over the last 2 weeks. The patient also complains about unusual abdominal pain or she feels pressure in poking in the left lower quadrant. She states this is improved in the past few days. The patient has multiple sclerosis and has paraplegia. No NVD, chest pain, cough, sore throat, joint pain, headache, depression. 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 GI consulted for abdominal pain/diarrhea. Pt seen awake, alert & oriented x 4 with no active s/sx of N/V. Patient states she currently has no diarrhea, denies any abdominal pain. No tenderness, no distention. States she had recent colonoscopy performed at [facility]. Labs reviewed. No anemia. No leukocytosis. Abdominal U/S shows multiple anechoic presumably cystic structures are partially visualized in the liver. Home Meds Reported Medications Sulindac* (CLINORIL*) 200 Mg Tablet, 200 MG PO BID, TAB 06/30/16 Oxymetazoline HCl (Afrin) 30 Ml [place], 1 SPRAY NASAL DAILY PRN for p, SPRAY 09/19/15 Zinc Sulfate (ZINC SULFATE*) 220 Mg Capsule, 220 MG ORAL DAILY, CAP 0 Refills 08/03/14 Ascorbic Acid* (VITAMIN C*) 500 Mg Tablet, 500 MG ORAL DAILY, #30 TAB 0 Refills 08/03/14 Bimatoprost (LUMIGAN) 2.5 Ml Drops, 1 DROP BOTH EYES DAILY, #2.5 ML 0 Refills 08/03/14 Bisoprolol Fumarate* (ZEBETA*) 5 Mg Tablet, 5 MG ORAL DAILY, #10 TAB 0 Refills 06/11/14 Metoprolol Succinate* (METOPROLOL SUCCINATE*) 100 Mg Tab.er.24h, 100 MG ORAL DAILY, TAB 06/11/14 Clopidogrel Bisulfate* (PLAVIX*) 75 Mg Tablet, 75 MG ORAL DAILY, TAB 06/11/14 Baclofen* (BACLOFEN*) 10 Mg Tablet, 10 MG ORAL DAILY, TAB 06/11/14 Rosuvastatin Calcium* (CRESTOR*) 10 Mg Tablet, 10 MG ORAL QHS, TAB 06/11/14 Discontinued Reported Medications Levofloxacin* (LEVAQUIN*) 500 Mg Tablet, 500 MG ORAL DAILY, TAB for 10 days 02/09/15 Med list reviewed/reconciled: Yes Allergies: Coded Allergies: SILICONE (Unverified Allergy, Unknown, 09/18/15) Patient History History Provided By: Patient, Medical Record PMH Narrative Past Medical History: see triage record Social History: Denies: smoking, alcohol use 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 Nursing Documentation: PMH: Agreed; PSxH: Agreed Nursing Documentation-PMH Past Medical History: No History, Except For Hx Cardiac Problems: Yes Hx Hypertension: Yes Hx Pacemaker: No Hx Asthma: No Hx Diabetes: No Hx Cancer: Yes - Renal and labia Hx Gastrointestinal Problems: No Hx Dialysis: No Hx Neurological Problems: Yes - [employer] Hx Cerebrovascular Accident: No Hx Seizures: No Hx Multiple Sclerosis: Yes Hx Amyotrophic Lat Sclerosis: Yes Hx Paralysis: Yes - since 08/2008 Hx Neurologic Surgery: No Hx Brain Shunt: No Social History: Denies: smoking, alcohol use, drug use, other Review of Systems All Other Systems: negative except mentioned in HPI Physical Exam Vital Signs Date Time Temp Pulse Resp B/P (MAP) Pulse Ox O2 Delivery O2 Flow Rate FiO2 02/09/18 12:26 97.9 108 16 158/61 97 Room Air 97.9 02/12/18 17:32 21 Sp02 EP Interpretation: reviewed, normal Labs Laboratory Tests Test 02/13/18 06:15 White Blood Count 4.6 K/UL (4.8-10.8) L Red Blood Count 5.29 M/UL (4.20-5.40) Hemoglobin 14.0 G/DL (12.0-16.0) Hematocrit 43.0 % (37.0-47.0) Mean Corpuscular Volume 81 FL (80-99) Mean Corpuscular Hemoglobin 26.6 PG (27.0-31.0) L Mean Corpuscular Hemoglobin Concent 32.7 G/DL (32.0-36.0) Red Cell Distribution Width 12.0 % (11.6-14.8) Platelet Count 234 K/UL (150-450) Mean Platelet Volume 7.8 FL (6.5-10.1) Neutrophils (%) (Auto) 57.2 % (45.0-75.0) Lymphocytes (%) (Auto) 23.4 % (20.0-45.0) Monocytes (%) (Auto) 12.9 % (1.0-10.0) H Eosinophils (%) (Auto) 5.0 % (0.0-3.0) H Basophils (%) (Auto) 1.6 % (0.0-2.0) Sodium Level 140 MMOL/L (136-145) Potassium Level 4.2 MMOL/L (3.5-5.1) Chloride Level 108 MMOL/L (98-107) H Carbon Dioxide Level 27 MMOL/L (21-32) Anion Gap 5 mmol/L (5-15) Blood Urea Nitrogen 5 mg/dL (7-18) L Creatinine 0.7 MG/DL (0.55-1.30) Estimat Glomerular Filtration Rate mL/min (>60) Glucose Level 86 MG/DL (74-106) Calcium Level 9.0 MG/DL (8.5-10.1) General Appearance: well appearing, no apparent distress, alert Head: normocephalic EENT: PERRL/EOMI, normal ENT inspection Neck: supple Respiratory: normal breath sounds, no respiratory distress Cardiovascular: normal rate Gastrointestinal: normal inspection, non tender, soft, normal bowel sounds, non -distended Rectal: deferred Genitourinary: no CVA tenderness Musculoskeletal: normal inspection, back normal Neurologic: normal inspection, alert, oriented x3, responsive Psychiatric: normal inspection, judgement/insight normal, memory normal Skin: normal inspection, normal color, no rash, warm/dry, palpation normal, well hydrated Lymphatic: normal inspection, no adenopathy Other Organ Systems paraplegic Current Medications Current Medications Medications (Trade) Dose Ordered Sig/Daysi Route PRN Reason Start Time Stop Time Status Last Admin Dose Admin Albuterol/ Ipratropium (Albuterol/ Ipratropium) 3 ml Q4HRT PRN HHN sob 02/13/18 15:00 02/16/18 08:59 Dextrose (Dextrose 50%) 25 ml STAT PRN IV Hypoglycemia 02/13/18 13:00 03/11/18 12:59 Dextrose (Dextrose 50%) 50 ml STAT PRN IV Hypoglycemia 02/13/18 13:00 03/11/18 12:59 Heparin Sodium (Porcine) (Heparin 5000 units/ml) 5,000 units EVERY 12 HOURS SUBQ 02/13/18 21:00 03/11/18 20:59 Levofloxacin (Levaquin) 500 mg DAILY@1000 ORAL 02/13/18 15:00 02/20/18 14:59 02/13/18 16:01 Tramadol HCl (Ultram) 75 mg Q8H PRN ORAL Severe Breakthru Pain (>7) 02/13/18 17:35 02/17/18 17:34 Vitamin A/Vitamin D (A & D Oint) 1 applic EVERY 12 HOURS TOPIC 02/13/18 21:00 03/11/18 20:59 GI: Plan Problems: (1) Diarrhea (2) Paraplegia (3) Vomiting (4) Nausea (5) Gastroenteritis (6) Viral syndrome Plan patient stable for discharge per GI standpoint supportive care / symptomatic treatment at this time regular diet, tolerating collect for cdiff/stool studies if patient has persistent diarrhea ppi zofran prn pain mgmt outpatient GI procedures Discussed with Dr. Kay. Thank you for this patient referral, we will follow. The patient was seen and examined at bedside and all new and available data was reviewed in the patients chart. I agree with the above findings, impression and plan. (Patient seen earlier today. Signature stamp does not reflect patient encounter time.). - MD Maribel Watkins,[facility] [employer] ENGINEER Feb 13, 2018 18:07
[2018-02-13 20:00] VITALS: BP 178/91
[2018-02-14 00:30] VITALS: BP 150/81
[2018-02-14 04:25] VITALS: BP 160/88
[2018-02-14] MEDS: traMADol 50mg tab ORAL PRN ×2 (05:50→13:47)
[2018-02-14 06:37] LABS: BASOPHILS % (AUTO) 0.7 % (0.0-2.0); EOSINOPHILS % (AUTO) 2.7 % (0.0-3.0); HEMATOCRIT 47.8 % (37.0-47.0); HEMOGLOBIN 15.1 G/DL (12.0-16.0); LYMPHOCYTES % (AUTO) 23.2 % (20.0-45.0); MEAN CORPUSCULAR VOLUME 81 FL (80-99); MONOCYTES % (AUTO) 10.4 % (1.0-10.0); NEUTROPHILS % (AUTO) 62.9 % (45.0-75.0); PLATELET COUNT 244 K/UL (150-450); RED BLOOD COUNT 5.88 M/UL (4.20-5.40); WHITE BLOOD COUNT 4.9 K/UL (4.8-10.8)
[2018-02-14 07:05] LABS: ANION GAP 7 mmol/L (5-15); BLOOD UREA NITROGEN 5 mg/dL (7-18); CALCIUM 9.4 MG/DL (8.5-10.1); CARBON DIOXIDE 28 MMOL/L (21-32); CHLORIDE 104 MMOL/L (98-107); CREATININE 0.7 MG/DL (0.55-1.30); PHOSPHORUS 2.4 MG/DL (2.5-4.9); POTASSIUM 3.6 MMOL/L (3.5-5.1); SODIUM 139 MMOL/L (136-145)
--- NOTE | 2018-02-14 08:07 | Urology Progress Note ---
Assessment/Plan Assessment/Plan 1. History of urinary retention with chronic Santillan. 2. Neurogenic bladder. 3. Pyuria, possible urinary tract infection and colonization. 4. Hematuria. 5. Proteinuria. 6. Right renal mass. santillan indwelling hand irrigate PRN abx as ordered serial renal imaging renal fxn stable Subjective Allergies: Coded Allergies: SILICONE (Unverified Allergy, Unknown, 09/18/15) Subjective feels fair Objective Last 24 Hour Vital Signs Date Time Temp Pulse Resp B/P (MAP) Pulse Ox O2 Delivery O2 Flow Rate FiO2 02/14/18 07:54 80 18 Room Air 21 02/14/18 04:25 98.6 90 18 160/88 (112) 98 98.6 02/14/18 00:30 98.3 88 18 150/81 (104) 100 98.3 02/13/18 22:00 Room Air 02/13/18 20:32 95 16 Room Air 21 02/13/18 20:00 98.8 98 20 178/91 (120) 98 98.8 02/13/18 16:00 97.8 70 18 124/73 (90) 99 97.8 02/13/18 12:00 97.7 76 18 138/73 (94) 99 97.7 02/13/18 10:21 82 16 Room Air 21 02/13/18 09:00 Room Air Intake and Output 02/13/18 02/14/18 19:00 07:00 Intake Total 240 ml 240 ml Output Total 500 ml Balance 240 ml -260 ml Intake Oral 240 ml Other 240 ml Output Urine Total 500 ml # Bowel Movements 1 Microbiology Date/Time Source Procedure Growth Status 02/09/18 13:03 Blood Blood Culture - Final Staphylococcus Sp Coag Neg Complete 02/09/18 13:03 Urine,Clean Catch Urine Culture - Final Escherichia Coli Complete Current Medications Medications (Trade) Dose Ordered Sig/Daysi Route PRN Reason Start Time Stop Time Status Last Admin Dose Admin Albuterol/ Ipratropium (Albuterol/ Ipratropium) 3 ml Q4HRT PRN HHN sob 02/13/18 15:00 02/16/18 08:59 Dextrose (Dextrose 50%) 25 ml STAT PRN IV Hypoglycemia 02/13/18 13:00 03/11/18 12:59 Dextrose (Dextrose 50%) 50 ml STAT PRN IV Hypoglycemia 02/13/18 13:00 8/11/18 12:59 Heparin Sodium (Porcine) (Heparin 5000 units/ml) 5,000 units EVERY 12 HOURS SUBQ 02/13/18 21:00 03/11/18 20:59 02/13/18 22:44 Levofloxacin (Levaquin) 500 mg DAILY@1000 ORAL 02/13/18 15:00 02/20/18 14:59 02/13/18 16:01 Tramadol HCl (Ultram) 75 mg Q8H PRN ORAL Severe Breakthru Pain (>7) 02/13/18 17:35 02/17/18 17:34 02/14/18 05:50 Vitamin A/Vitamin D (A & D Oint) 1 applic EVERY 12 HOURS TOPIC 02/13/18 21:00 03/11/18 20:59 02/13/18 21:00 Laboratory Tests 02/14/18 06:15: White Blood Count 4.9, Red Blood Count 5.88H, Hemoglobin 15.1, Hematocrit 47.8H , Mean Corpuscular Volume 81, Mean Corpuscular Hemoglobin 25.7L, Mean Corpuscular Hemoglobin Concent 31.6L, Red Cell Distribution Width 12.0, Platelet Count 244, Mean Platelet Volume 7.9, Neutrophils (%) (Auto) 62.9, Lymphocytes (%) (Auto) 23.2, Monocytes (%) (Auto) 10.4H, Eosinophils (%) (Auto) 2.7, Basophils (%) (Auto) 0.7, Sodium Level 139, Potassium Level 3.6, Chloride Level 104, Carbon Dioxide Level 28, Anion Gap 7, Blood Urea Nitrogen 5L, Creatinine 0.7, Estimat Glomerular Filtration Rate , Glucose Level 81, Calcium Level 9.4, Phosphorus Level 2.4L, Magnesium Level 1.8 Height (Feet): 5 Height (Inches): 0.50 Weight (Pounds): 180 Objective exam stable abdominal u/s noted MARCELA LAUGHLIN Feb 14, 2018 08:07
[2018-02-14] MEDS: Levofloxacin 500mg tab ORAL SCH (08:56)
[2018-02-14] MEDS: Vitamin A&D Oint 2oz Tube TOPIC SCH ×2 (08:56→21:45)
[2018-02-14] MEDS: Heparin 5000 units/ml inj SUBQ SCH ×2 (08:59→21:47)
[2018-02-14 09:00] VITALS: BP 152/68
--- NOTE | 2018-02-14 11:13 | Pulmonology Progress Note ---
Assessment/Plan Problems: (1) Sepsis (2) COPD (chronic obstructive pulmonary disease) (3) Right lower lobe pneumonia (4) Multiple sclerosis (5) Paraplegia Assessment/Plan check stool for Ova and parasites continue abx check cultures CEA elevated b/o ? renal tumor talked to daughter, who stated that the pt has maggots in her stool. Subjective ROS Limited/Unobtainable: No Constitutional: Reports: no symptoms HEENT: Repors: no symptoms Allergies: Coded Allergies: SILICONE (Unverified Allergy, Unknown, 09/18/15) Objective Last 24 Hour Vital Signs Date Time Temp Pulse Resp B/P (MAP) Pulse Ox O2 Delivery O2 Flow Rate FiO2 02/14/18 09:00 Room Air 02/14/18 09:00 98.2 80 17 152/68 (96) 100 98.2 02/14/18 07:54 80 18 Room Air 21 02/14/18 04:25 98.6 90 18 160/88 (112) 98 98.6 02/14/18 00:30 98.3 88 18 150/81 (104) 100 98.3 02/13/18 22:00 Room Air 02/13/18 20:32 95 16 Room Air 21 02/13/18 20:00 98.8 98 20 178/91 (120) 98 98.8 02/13/18 16:00 97.8 70 18 124/73 (90) 99 97.8 02/13/18 12:00 97.7 76 18 138/73 (94) 99 97.7 Intake and Output 02/13/18 02/14/18 19:00 07:00 Intake Total 240 ml 240 ml Output Total 500 ml Balance 240 ml -260 ml Intake Oral 240 ml Other 240 ml Output Urine Total 500 ml # Bowel Movements 1 General Appearance: WD/WN HEENT: normocephalic, anicteric Respiratory/Chest: chest wall non-tender, lungs clear Cardiovascular: normal peripheral pulses, normal rate Abdomen: normal bowel sounds, soft, non tender, no organomegaly Genitourinary: normal external genitalia Extremities: no clubbing Skin: no rash Laboratory Tests 02/14/18 06:15: White Blood Count 4.9, Red Blood Count 5.88H, Hemoglobin 15.1, Hematocrit 47.8H , Mean Corpuscular Volume 81, Mean Corpuscular Hemoglobin 25.7L, Mean Corpuscular Hemoglobin Concent 31.6L, Red Cell Distribution Width 12.0, Platelet Count 244, Mean Platelet Volume 7.9, Neutrophils (%) (Auto) 62.9, Lymphocytes (%) (Auto) 23.2, Monocytes (%) (Auto) 10.4H, Eosinophils (%) (Auto) 2.7, Basophils (%) (Auto) 0.7, Sodium Level 139, Potassium Level 3.6, Chloride Level 104, Carbon Dioxide Level 28, Anion Gap 7, Blood Urea Nitrogen 5L, Creatinine 0.7, Estimat Glomerular Filtration Rate , Glucose Level 81, Calcium Level 9.4, Phosphorus Level 2.4L, Magnesium Level 1.8 Current Medications Medications (Trade) Dose Ordered Sig/Daysi Route PRN Reason Start Time Stop Time Status Last Admin Dose Admin Albuterol/ Ipratropium (Albuterol/ Ipratropium) 3 ml Q4HRT PRN HHN sob 02/13/18 15:00 02/16/18 08:59 Dextrose (Dextrose 50%) 25 ml STAT PRN IV Hypoglycemia 02/13/18 13:00 03/11/18 12:59 Dextrose (Dextrose 50%) 50 ml STAT PRN IV Hypoglycemia 02/13/18 13:00 03/11/18 12:59 Heparin Sodium (Porcine) (Heparin 5000 units/ml) 5,000 units EVERY 12 HOURS SUBQ 02/13/18 21:00 03/11/18 20:59 02/14/18 08:59 Levofloxacin (Levaquin) 500 mg DAILY@1000 ORAL 02/13/18 15:00 02/20/18 14:59 02/14/18 08:56 Tramadol HCl (Ultram) 75 mg Q8H PRN ORAL Severe Breakthru Pain (>7) 02/13/18 17:35 02/17/18 17:34 02/14/18 05:50 Vitamin A/Vitamin D (A & D Oint) 1 applic EVERY 12 HOURS TOPIC 02/13/18 21:00 03/11/18 20:59 02/14/18 08:56 Lawrence Soriano MD Feb 14, 2018 11:13
[2018-02-14 12:00] VITALS: BP 154/91
--- NOTE | 2018-02-14 12:57 | Infectious Diseases Prog Note ---
Assessment/Plan Assessment/Plan Abx: Levaquin 02/09; 02/11- Cefepime 02/09-02/10 IV vanco x1 02/09 Assessment: UTI -u/a wbc 30-40, nit +, leuk +3; ucx >100K E.coli (R amp, bactrim; otherwise S) Afebrile, no leukocytosis Abd pain; improving -ABD US: Limited exam as above resulting in lack of visualization of certain structures and artifact or poor visualization of other structures. Known solid mass in the upper pole the right kidney is visualized and measures approximately 3.5 cm. Unable to confidently assess for the presence or absence of hydronephrosis. Multiple anechoic presumably cystic structures are partially visualized in the liver.Given limitations of the exam recommend further evaluation with contrast-enhanced CT of the abdomen and pelvis. This would provide a more reliable assessment for interval change. -CXR: There is again elevation of the right hemidiaphragm now with mild increase in the collapse and atelectasis with possible small effusion seen. The left lung remains clear. MIld eosinophila, resolved ?Maggots on stool (per divya) -r/o intestinal parasitical infection RLE DVT CAD paraplegia HTN MS urinary retention 2ry to neurogenic bladder on chronic Shah anemia hx of UTI (E.coli 2015) R renal mass Plan: -Continue LEvaquin #6/ -ok to discharge on this regimen -f/u cx -Monitor CBC/CMP, temperatures -Shah cath care -aspiration precautions -Stool o/p x3 Thank you for this consultation. Will continue to follow along with you. Discussed with RN and Dr Soriano Subjective Allergies: Coded Allergies: SILICONE (Unverified Allergy, Unknown, 09/18/15) Subjective afebrile no leukocytosis discharge planning Objective Vital Signs Last 24 Hour Vital Signs Date Time Temp Pulse Resp B/P (MAP) Pulse Ox O2 Delivery O2 Flow Rate FiO2 02/14/18 12:00 98.4 89 19 154/91 (112) 100 98.4 02/14/18 09:00 Room Air 02/14/18 09:00 98.2 80 17 152/68 (96) 100 98.2 02/14/18 07:54 80 18 Room Air 21 02/14/18 04:25 98.6 90 18 160/88 (112) 98 98.6 02/14/18 00:30 98.3 88 18 150/81 (104) 100 98.3 02/13/18 22:00 Room Air 02/13/18 20:32 95 16 Room Air 21 02/13/18 20:00 98.8 98 20 178/91 (120) 98 98.8 02/13/18 16:00 97.8 70 18 124/73 (90) 99 97.8 Height (Feet): 5 Height (Inches): 0.50 Weight (Pounds): 180 Objective GENERAL: No acute distress. PULMONARY: Decreased breath sounds. CARDIOVASCULAR: Regular rate. No S3 or S4. ABDOMEN: Soft, nontender, and nondistended. EXTREMITIES: No cyanosis, swelling or edema noted. Atrophy of lower extremities. Laboratory Tests Test 02/14/18 06:15 White Blood Count 4.9 K/UL (4.8-10.8) Red Blood Count 5.88 M/UL (4.20-5.40) H Hemoglobin 15.1 G/DL (12.0-16.0) Hematocrit 47.8 % (37.0-47.0) H Mean Corpuscular Volume 81 FL (80-99) Mean Corpuscular Hemoglobin 25.7 PG (27.0-31.0) L Mean Corpuscular Hemoglobin Concent 31.6 G/DL (32.0-36.0) L Red Cell Distribution Width 12.0 % (11.6-14.8) Platelet Count 244 K/UL (150-450) Mean Platelet Volume 7.9 FL (6.5-10.1) Neutrophils (%) (Auto) 62.9 % (45.0-75.0) Lymphocytes (%) (Auto) 23.2 % (20.0-45.0) Monocytes (%) (Auto) 10.4 % (1.0-10.0) H Eosinophils (%) (Auto) 2.7 % (0.0-3.0) Basophils (%) (Auto) 0.7 % (0.0-2.0) Sodium Level 139 MMOL/L (136-145) Potassium Level 3.6 MMOL/L (3.5-5.1) Chloride Level 104 MMOL/L (98-107) Carbon Dioxide Level 28 MMOL/L (21-32) Anion Gap 7 mmol/L (5-15) Blood Urea Nitrogen 5 mg/dL (7-18) L Creatinine 0.7 MG/DL (0.55-1.30) Estimat Glomerular Filtration Rate mL/min (>60) Glucose Level 81 MG/DL (74-106) Calcium Level 9.4 MG/DL (8.5-10.1) Phosphorus Level 2.4 MG/DL (2.5-4.9) L Magnesium Level 1.8 MG/DL (1.8-2.4) Current Medications Medications (Trade) Dose Ordered Sig/Daysi Route PRN Reason Start Time Stop Time Status Last Admin Dose Admin Albuterol/ Ipratropium (Albuterol/ Ipratropium) 3 ml Q4HRT PRN HHN sob 02/13/18 15:00 02/16/18 08:59 Dextrose (Dextrose 50%) 25 ml STAT PRN IV Hypoglycemia 02/13/18 13:00 03/11/18 12:59 Dextrose (Dextrose 50%) 50 ml STAT PRN IV Hypoglycemia 02/13/18 13:00 03/11/18 12:59 Heparin Sodium (Porcine) (Heparin 5000 units/ml) 5,000 units EVERY 12 HOURS SUBQ 02/13/18 21:00 03/11/18 20:59 02/14/18 08:59 Levofloxacin (Levaquin) 500 mg DAILY@1000 ORAL 02/13/18 15:00 02/20/18 14:59 02/14/18 08:56 Tramadol HCl (Ultram) 75 mg Q8H PRN ORAL Severe Breakthru Pain (>7) 02/13/18 17:35 02/17/18 17:34 02/14/18 05:50 Vitamin A/Vitamin D (A & D Oint) 1 applic EVERY 12 HOURS TOPIC 02/13/18 21:00 03/11/18 20:59 02/14/18 08:56 Zoraida Bailey M.D. Feb 14, 2018 12:57
--- NOTE | 2018-02-14 14:01 | GI Progress Note ---
Assessment/Plan Problems: (1) Vomiting ICD Codes: R11.10 - Vomiting, unspecified SNOMED: 545933978 (2) Nausea ICD Codes: R11.0 - Nausea SNOMED: 284209934 (3) Gastroenteritis ICD Codes: K52.9 - Noninfective gastroenteritis and colitis, unspecified SNOMED: 04323120 (4) Diarrhea ICD Codes: R19.7 - Diarrhea, unspecified SNOMED: 65575222 (5) Failure to thrive SNOMED: 40831349 Status: stable, unchanged Status Narrative Discussed with Dr. Kay. Assessment/Plan patient stable for discharge per GI standpoint supportive care / symptomatic treatment at this time regular diet, tolerating collect for cdiff/stool studies if patient has persistent diarrhea ppi zofran prn pain mgmt outpatient GI procedures The patient was seen and examined at bedside and all new and available data was reviewed in the patients chart. I agree with the above findings, impression and plan. (Patient seen earlier today. Signature stamp does not reflect patient encounter time.). - Audi Kay MD Subjective Gastrointestinal/Abdominal: Reports: no symptoms Objective Last 24 Hour Vital Signs Date Time Temp Pulse Resp B/P (MAP) Pulse Ox O2 Delivery O2 Flow Rate FiO2 02/14/18 13:47 98.4 02/14/18 12:00 98.4 89 19 154/91 (112) 100 98.4 02/14/18 09:00 Room Air 02/14/18 09:00 98.2 80 17 152/68 (96) 100 98.2 02/14/18 07:54 80 18 Room Air 21 02/14/18 04:25 98.6 90 18 160/88 (112) 98 98.6 02/14/18 00:30 98.3 88 18 150/81 (104) 100 98.3 02/13/18 22:00 Room Air 02/13/18 20:32 95 16 Room Air 21 02/13/18 20:00 98.8 98 20 178/91 (120) 98 98.8 02/13/18 16:00 97.8 70 18 124/73 (90) 99 97.8 Intake and Output 02/13/18 02/14/18 19:00 07:00 Intake Total 240 ml 240 ml Output Total 500 ml Balance 240 ml -260 ml Intake Oral 240 ml Other 240 ml Output Urine Total 500 ml # Bowel Movements 1 Laboratory Tests Test 02/14/18 06:15 White Blood Count 4.9 K/UL (4.8-10.8) Red Blood Count 5.88 M/UL (4.20-5.40) H Hemoglobin 15.1 G/DL (12.0-16.0) Hematocrit 47.8 % (37.0-47.0) H Mean Corpuscular Volume 81 FL (80-99) Mean Corpuscular Hemoglobin 25.7 PG (27.0-31.0) L Mean Corpuscular Hemoglobin Concent 31.6 G/DL (32.0-36.0) L Red Cell Distribution Width 12.0 % (11.6-14.8) Platelet Count 244 K/UL (150-450) Mean Platelet Volume 7.9 FL (6.5-10.1) Neutrophils (%) (Auto) 62.9 % (45.0-75.0) Lymphocytes (%) (Auto) 23.2 % (20.0-45.0) Monocytes (%) (Auto) 10.4 % (1.0-10.0) H Eosinophils (%) (Auto) 2.7 % (0.0-3.0) Basophils (%) (Auto) 0.7 % (0.0-2.0) Sodium Level 139 MMOL/L (136-145) Potassium Level 3.6 MMOL/L (3.5-5.1) Chloride Level 104 MMOL/L (98-107) Carbon Dioxide Level 28 MMOL/L (21-32) Anion Gap 7 mmol/L (5-15) Blood Urea Nitrogen 5 mg/dL (7-18) L Creatinine 0.7 MG/DL (0.55-1.30) Estimat Glomerular Filtration Rate mL/min (>60) Glucose Level 81 MG/DL (74-106) Calcium Level 9.4 MG/DL (8.5-10.1) Phosphorus Level 2.4 MG/DL (2.5-4.9) L Magnesium Level 1.8 MG/DL (1.8-2.4) Height (Feet): 5 Height (Inches): 0.50 Weight (Pounds): 180 General Appearance: WD/WN, no apparent distress, alert Cardiovascular: normal rate Respiratory/Chest: normal breath sounds, no respiratory distress Abdominal Exam: normal bowel sounds, non tender, soft Extremities: non-tender Lili López NP Feb 14, 2018 14:01
[2018-02-14] MEDS ORDERED: DiphenhydrAMINE 50mg/ml Inj IVP PRN (15:30)
[2018-02-14] MEDS: valACYclovir HCL 500mg tab ORAL SCH ×2 (15:30→21:46)
[2018-02-14 16:00] VITALS: BP 157/87
--- NOTE | 2018-02-14 16:02 | General Progress Note ---
Assessment/Plan Status: stable Assessment/Plan # Anemia due to history of hematuria. --> Continue to closely monitor --> Anemia w/u has been reviewed. --> Hgb goal >7 --> Currently stable. # Deep venous thrombosis of the lower extremity. --> Venous duplex pending. --> The patient has a history of DVT. Completed 3 months of anticoagulation. # Proteinuria. # Renal mass. Further evaluate per Urology Service. # History of urinary retention. Serial imaging as needed. Irrigation with hand as needed. # Urinary tract infection with underlying infection. # Multiple sclerosis. # Hypokalemia. The time the note was entered does not necessarily correspond to the time the patient was seen. Subjective Date patient seen: Feb 14, 2018 ROS Limited/Unobtainable: Yes HEENT: Reports: ear pain Hematologic/Lymphatic: Reports: anemia Allergies: Coded Allergies: SILICONE (Unverified Allergy, Unknown, 09/18/15) All Systems: reviewed and negative except above Subjective Pt awake and alert. Pt c/o R ear pain. No acute events. Daughter requesting hospice care. Objective Last 24 Hour Vital Signs Date Time Temp Pulse Resp B/P (MAP) Pulse Ox O2 Delivery O2 Flow Rate FiO2 02/14/18 14:46 98.4 02/14/18 13:47 98.4 02/14/18 12:00 98.4 89 19 154/91 (112) 100 98.4 02/14/18 09:00 Room Air 02/14/18 09:00 98.2 80 17 152/68 (96) 100 98.2 02/14/18 07:54 80 18 Room Air 21 02/14/18 04:25 98.6 90 18 160/88 (112) 98 98.6 02/14/18 00:30 98.3 88 18 150/81 (104) 100 98.3 02/13/18 22:00 Room Air 02/13/18 20:32 95 16 Room Air 21 02/13/18 20:00 98.8 98 20 178/91 (120) 98 98.8 02/13/18 16:00 97.8 70 18 124/73 (90) 99 97.8 Intake and Output 02/13/18 02/14/18 19:00 07:00 Intake Total 240 ml 240 ml Output Total 500 ml Balance 240 ml -260 ml Intake Oral 240 ml Other 240 ml Output Urine Total 500 ml # Bowel Movements 1 Laboratory Tests 02/14/18 06:15: White Blood Count 4.9, Red Blood Count 5.88H, Hemoglobin 15.1, Hematocrit 47.8H , Mean Corpuscular Volume 81, Mean Corpuscular Hemoglobin 25.7L, Mean Corpuscular Hemoglobin Concent 31.6L, Red Cell Distribution Width 12.0, Platelet Count 244, Mean Platelet Volume 7.9, Neutrophils (%) (Auto) 62.9, Lymphocytes (%) (Auto) 23.2, Monocytes (%) (Auto) 10.4H, Eosinophils (%) (Auto) 2.7, Basophils (%) (Auto) 0.7, Sodium Level 139, Potassium Level 3.6, Chloride Level 104, Carbon Dioxide Level 28, Anion Gap 7, Blood Urea Nitrogen 5L, Creatinine 0.7, Estimat Glomerular Filtration Rate , Glucose Level 81, Calcium Level 9.4, Phosphorus Level 2.4L, Magnesium Level 1.8 Height (Feet): 5 Height (Inches): 0.50 Weight (Pounds): 180 General Appearance: no apparent distress, alert EENT: PERRL/EOMI Neck: normal alignment Cardiovascular: normal peripheral pulses Respiratory/Chest: no respiratory distress Abdomen: normal bowel sounds Jesse Hall MD Feb 14, 2018 16:02
[2018-02-14 20:00] VITALS: BP 156/78
[2018-02-15] VITALS (7 sets, daily range): BP systolic 140–177; BP diastolic 78–95
[2018-02-15] MEDS: valACYclovir HCL 500mg tab ORAL SCH ×3 (05:36→21:37)
[2018-02-15] MEDS: traMADol 50mg tab ORAL PRN ×2 (05:45→18:52)
[2018-02-15 07:49] LABS: BASOPHILS % (AUTO) 0.2 % (0.0-2.0); EOSINOPHILS % (AUTO) 0.1 % (0.0-3.0); HEMATOCRIT 43.8 % (37.0-47.0); HEMOGLOBIN 14.1 G/DL (12.0-16.0); LYMPHOCYTES % (AUTO) 17.3 % (20.0-45.0); MEAN CORPUSCULAR VOLUME 80 FL (80-99); MONOCYTES % (AUTO) 7.1 % (1.0-10.0); NEUTROPHILS % (AUTO) 75.2 % (45.0-75.0); PLATELET COUNT 249 K/UL (150-450); RED BLOOD COUNT 5.46 M/UL (4.20-5.40); WHITE BLOOD COUNT 5.1 K/UL (4.8-10.8)
[2018-02-15 07:55] LABS: ALBUMIN 2.8 G/DL (3.4-5.0); ALBUMIN/GLOBULIN RATIO 0.7 (1.0-2.7); ALKALINE PHOSPHATASE 82 U/L (46-116); ANION GAP 11 mmol/L (5-15); ASPARTATE AMINO TRANSFERASE 16 U/L (15-37); BILIRUBIN,TOTAL 0.4 MG/DL (0.2-1.0); BLOOD UREA NITROGEN 6 mg/dL (7-18); CALCIUM 9.1 MG/DL (8.5-10.1); CARBON DIOXIDE 25 MMOL/L (21-32); CHLORIDE 103 MMOL/L (98-107); CREATININE 0.6 MG/DL (0.55-1.30); PHOSPHORUS 2.8 MG/DL (2.5-4.9); POTASSIUM 3.8 MMOL/L (3.5-5.1); SODIUM 139 MMOL/L (136-145)
[2018-02-15 08:11] LABS: ALANINE AMINOTRANSFERASE 14 U/L (12-78)
--- NOTE | 2018-02-15 09:27 | General Progress Note ---
Assessment/Plan Status: unchanged Assessment/Plan # Anemia due to history of hematuria. --> Continue to closely monitor --> Anemia w/u has been reviewed. --> Hgb goal >8 --> Currently stable. # Deep venous thrombosis of the lower extremity. --> Venous duplex although again reveals thrombus, it is in fact chronic, no physical exam findings to suggest acute thrombus --> she has had repeat studies x 2 before that also say same findings, clinical exam unchnaged, thus does not require anticoag --> The patient has a history of DVT. Completed 3 months of anticoagulation. # Proteinuria. eval with renal # Renal mass. Further evaluate per Urology Service. # History of urinary retention. Serial imaging as needed. Irrigation with hand as needed. # Urinary tract infection with underlying infection. # Multiple sclerosis. # Hypokalemia. The time the note was entered does not necessarily correspond to the time the patient was seen. Subjective Date patient seen: Feb 15, 2018 ROS Limited/Unobtainable: Yes Hematologic/Lymphatic: Reports: anemia Allergies: Coded Allergies: SILICONE (Unverified Allergy, Unknown, 09/18/15) All Systems: reviewed and negative except above Subjective Pt awake and alert. Pt c/o painful rsh on face. No acute medical events. No resp distress. Objective Last 24 Hour Vital Signs Date Time Temp Pulse Resp B/P (MAP) Pulse Ox O2 Delivery O2 Flow Rate FiO2 02/15/18 04:00 98.8 96 19 157/90 (112) 98 98.8 02/15/18 00:00 98.7 96 19 158/87 (110) 100 98.7 02/14/18 21:00 Room Air 02/14/18 20:06 83 18 Room Air 21 02/14/18 20:00 98.6 90 20 156/78 (104) 100 98.6 02/14/18 16:00 98.1 59 17 157/87 (110) 97 98.1 02/14/18 14:46 98.4 02/14/18 13:47 98.4 02/14/18 12:00 98.4 89 19 154/91 (112) 100 98.4 Intake and Output 02/14/18 02/15/18 19:00 07:00 Intake Total 400 ml Output Total 800 ml 1000 ml Balance -400 ml -1000 ml Intake Oral 400 ml Output Urine Total 800 ml 1000 ml # Bowel Movements 1 Laboratory Tests 02/15/18 05:50: White Blood Count 5.1, Red Blood Count 5.46H, Hemoglobin 14.1, Hematocrit 43.8, Mean Corpuscular Volume 80, Mean Corpuscular Hemoglobin 25.9L, Mean Corpuscular Hemoglobin Concent 32.3, Red Cell Distribution Width 12.0, Platelet Count 249, Mean Platelet Volume 8.2, Neutrophils (%) (Auto) 75.2H, Lymphocytes (%) (Auto) 17.3L, Monocytes (%) (Auto) 7.1, Eosinophils (%) (Auto) 0.1, Basophils (%) (Auto ) 0.2, Sodium Level 139, Potassium Level 3.8, Chloride Level 103, Carbon Dioxide Level 25, Anion Gap 11, Blood Urea Nitrogen 6L, Creatinine 0.6, Estimat Glomerular Filtration Rate , Glucose Level 93, Calcium Level 9.1, Phosphorus Level 2.8, Magnesium Level 1.7L, Total Bilirubin 0.4, Aspartate Amino Transf ( AST/SGOT) 16, Alanine Aminotransferase (ALT/SGPT) 14, Alkaline Phosphatase 82, Total Protein 7.1, Albumin 2.8L, Globulin 4.3, Albumin/Globulin Ratio 0.7L Height (Feet): 5 Height (Inches): 0.50 Weight (Pounds): 213 General Appearance: no apparent distress, alert EENT: PERRL/EOMI Neck: normal alignment, supple Cardiovascular: normal peripheral pulses Respiratory/Chest: no respiratory distress Abdomen: soft Jesse Hall MD Feb 15, 2018 09:27
[2018-02-15] MEDS: Heparin 5000 units/ml inj SUBQ SCH ×2 (09:33→20:47)
--- NOTE | 2018-02-15 11:16 | Infectious Diseases Prog Note ---
Assessment/Plan Assessment/Plan Assessment: R facial vesicular rash- likely 2ry herpes zoster- ?Early Justen Cespedes Syndrome - vesicles, ear pain, no facial paralysis at this point UTI -u/a wbc 30-40, nit +, leuk +3; ucx >100K E.coli (R amp, bactrim; otherwise S) Afebrile, no leukocytosis Abd pain; improving -ABD US: Limited exam as above resulting in lack of visualization of certain structures and artifact or poor visualization of other structures. Known solid mass in the upper pole the right kidney is visualized and measures approximately 3.5 cm. Unable to confidently assess for the presence or absence of hydronephrosis. Multiple anechoic presumably cystic structures are partially visualized in the liver.Given limitations of the exam recommend further evaluation with contrast-enhanced CT of the abdomen and pelvis. This would provide a more reliable assessment for interval change. -CXR: There is again elevation of the right hemidiaphragm now with mild increase in the collapse and atelectasis with possible small effusion seen. The left lung remains clear. MIld eosinophila, resolved ?Maggots on stool (per divya) -r/o intestinal parasitical infection RLE DVT CAD paraplegia HTN MS urinary retention 2ry to neurogenic bladder on chronic Shah anemia hx of UTI (E.coli 2015) R renal mass Plan: -Continue PO Valacyclovir 1g tid #2/-10 and add PO Prednisone 60mg daily x5 days -Resumed PO Levaquin #7/10 -02/14 SP Levaquin #6 -/ Cefepime #3 -02/09 SP IV Vanco x1 -f/u cx -Monitor CBC/CMP, temperatures -Shah cath care -aspiration precautions -f/u Stool o/p x3 -contact isolation Thank you for this consultation. Will continue to follow along with you. Discussed with RN, Dr Soriano and daughter at bedside. Subjective Allergies: Coded Allergies: SILICONE (Unverified Allergy, Unknown, 09/18/15) Subjective afebrile no leukocytosis yesterday patient developed blister/vesicular rash on R side of face with ear pain and jaw pain. levaquin d/c and Valacyclovir started Objective Vital Signs Last 24 Hour Vital Signs Date Time Temp Pulse Resp B/P (MAP) Pulse Ox O2 Delivery O2 Flow Rate FiO2 02/15/18 09:00 Room Air 02/15/18 08:11 85 18 Room Air 21 02/15/18 08:00 97.4 94 20 156/95 (115) 98 97.4 02/15/18 04:00 98.8 96 19 157/90 (112) 98 98.8 02/15/18 00:00 98.7 96 19 158/87 (110) 100 98.7 02/14/18 21:00 Room Air 02/14/18 20:06 83 18 Room Air 21 02/14/18 20:00 98.6 90 20 156/78 (104) 100 98.6 02/14/18 16:00 98.1 59 17 157/87 (110) 97 98.1 02/14/18 14:46 98.4 02/14/18 13:47 98.4 02/14/18 12:00 98.4 89 19 154/91 (112) 100 98.4 Height (Feet): 5 Height (Inches): 0.50 Weight (Pounds): 213 Objective GENERAL: No acute distress. PULMONARY: Decreased breath sounds. CARDIOVASCULAR: Regular rate. No S3 or S4. ABDOMEN: Soft, nontender, and nondistended. EXTREMITIES: No cyanosis, swelling or edema noted. Atrophy of lower extremities. Laboratory Tests Test 02/15/18 05:50 White Blood Count 5.1 K/UL (4.8-10.8) Red Blood Count 5.46 M/UL (4.20-5.40) H Hemoglobin 14.1 G/DL (12.0-16.0) Hematocrit 43.8 % (37.0-47.0) Mean Corpuscular Volume 80 FL (80-99) Mean Corpuscular Hemoglobin 25.9 PG (27.0-31.0) L Mean Corpuscular Hemoglobin Concent 32.3 G/DL (32.0-36.0) Red Cell Distribution Width 12.0 % (11.6-14.8) Platelet Count 249 K/UL (150-450) Mean Platelet Volume 8.2 FL (6.5-10.1) Neutrophils (%) (Auto) 75.2 % (45.0-75.0) H Lymphocytes (%) (Auto) 17.3 % (20.0-45.0) L Monocytes (%) (Auto) 7.1 % (1.0-10.0) Eosinophils (%) (Auto) 0.1 % (0.0-3.0) Basophils (%) (Auto) 0.2 % (0.0-2.0) Sodium Level 139 MMOL/L (136-145) Potassium Level 3.8 MMOL/L (3.5-5.1) Chloride Level 103 MMOL/L (98-107) Carbon Dioxide Level 25 MMOL/L (21-32) Anion Gap 11 mmol/L (5-15) Blood Urea Nitrogen 6 mg/dL (7-18) L Creatinine 0.6 MG/DL (0.55-1.30) Estimat Glomerular Filtration Rate mL/min (>60) Glucose Level 93 MG/DL (74-106) Calcium Level 9.1 MG/DL (8.5-10.1) Phosphorus Level 2.8 MG/DL (2.5-4.9) Magnesium Level 1.7 MG/DL (1.8-2.4) L Total Bilirubin 0.4 MG/DL (0.2-1.0) Aspartate Amino Transf (AST/SGOT) 16 U/L (15-37) Alanine Aminotransferase (ALT/SGPT) 14 U/L (12-78) Alkaline Phosphatase 82 U/L (46-116) Total Protein 7.1 G/DL (6.4-8.2) Albumin 2.8 G/DL (3.4-5.0) L Globulin 4.3 g/dL Albumin/Globulin Ratio 0.7 (1.0-2.7) L Current Medications Medications (Trade) Dose Ordered Sig/Daysi Route PRN Reason Start Time Stop Time Status Last Admin Dose Admin Albuterol/ Ipratropium (Albuterol/ Ipratropium) 3 ml Q4HRT PRN HHN sob 02/13/18 15:00 02/16/18 08:59 Dextrose (Dextrose 50%) 25 ml STAT PRN IV Hypoglycemia 02/13/18 13:00 03/11/18 12:59 Dextrose (Dextrose 50%) 50 ml STAT PRN IV Hypoglycemia 02/13/18 13:00 03/11/18 12:59 Diphenhydramine HCl (Benadryl) 25 mg Q6H PRN IVP Itching 02/14/18 15:30 03/16/18 15:29 02/14/18 15:36 Heparin Sodium (Porcine) (Heparin 5000 units/ml) 5,000 units EVERY 12 HOURS SUBQ 02/13/18 21:00 03/11/18 20:59 02/15/18 09:33 Tramadol HCl (Ultram) 75 mg Q8H PRN ORAL Severe Breakthru Pain (>7) 02/13/18 17:35 02/17/18 17:34 02/15/18 05:45 Valacyclovir HCl (Valtrex) 1,000 mg Q8HR ORAL 02/14/18 15:30 03/16/18 15:29 02/15/18 05:36 Vitamin A/Vitamin D (A & D Oint) 1 applic EVERY 12 HOURS TOPIC 02/13/18 21:00 03/11/18 20:59 02/14/18 21:45 Zoraida Bailey M.D. Feb 15, 2018 11:16
--- NOTE | 2018-02-15 11:18 | GI Progress Note ---
Assessment/Plan Problems: (1) Vomiting ICD Codes: R11.10 - Vomiting, unspecified SNOMED: 893357650 (2) Nausea ICD Codes: R11.0 - Nausea SNOMED: 883087909 (3) Gastroenteritis ICD Codes: K52.9 - Noninfective gastroenteritis and colitis, unspecified SNOMED: 72985052 (4) Diarrhea ICD Codes: R19.7 - Diarrhea, unspecified SNOMED: 17972988 (5) Failure to thrive SNOMED: 36410985 Status: unchanged Status Narrative Discussed with Dr. Kay. Assessment/Plan supportive care / symptomatic treatment at this time regular diet, tolerating collect for cdiff/stool studies if patient has persistent diarrhea >> none reported fu O&P, per daughter had maggots in her stool abx ppi zofran prn pain mgmt outpatient GI procedures The patient was seen and examined at bedside and all new and available data was reviewed in the patients chart. I agree with the above findings, impression and plan. (Patient seen earlier today. Signature stamp does not reflect patient encounter time.). - Audi Kay MD Subjective Subjective right side facial rash no GI symptoms Objective Last 24 Hour Vital Signs Date Time Temp Pulse Resp B/P (MAP) Pulse Ox O2 Delivery O2 Flow Rate FiO2 02/15/18 09:00 Room Air 02/15/18 08:11 85 18 Room Air 21 02/15/18 08:00 97.4 94 20 156/95 (115) 98 97.4 02/15/18 04:00 98.8 96 19 157/90 (112) 98 98.8 02/15/18 00:00 98.7 96 19 158/87 (110) 100 98.7 02/14/18 21:00 Room Air 02/14/18 20:06 83 18 Room Air 21 02/14/18 20:00 98.6 90 20 156/78 (104) 100 98.6 02/14/18 16:00 98.1 59 17 157/87 (110) 97 98.1 02/14/18 14:46 98.4 02/14/18 13:47 98.4 02/14/18 12:00 98.4 89 19 154/91 (112) 100 98.4 Intake and Output 02/14/18 02/15/18 19:00 07:00 Intake Total 400 ml Output Total 800 ml 1000 ml Balance -400 ml -1000 ml Intake Oral 400 ml Output Urine Total 800 ml 1000 ml # Bowel Movements 1 Laboratory Tests Test 02/15/18 05:50 White Blood Count 5.1 K/UL (4.8-10.8) Red Blood Count 5.46 M/UL (4.20-5.40) H Hemoglobin 14.1 G/DL (12.0-16.0) Hematocrit 43.8 % (37.0-47.0) Mean Corpuscular Volume 80 FL (80-99) Mean Corpuscular Hemoglobin 25.9 PG (27.0-31.0) L Mean Corpuscular Hemoglobin Concent 32.3 G/DL (32.0-36.0) Red Cell Distribution Width 12.0 % (11.6-14.8) Platelet Count 249 K/UL (150-450) Mean Platelet Volume 8.2 FL (6.5-10.1) Neutrophils (%) (Auto) 75.2 % (45.0-75.0) H Lymphocytes (%) (Auto) 17.3 % (20.0-45.0) L Monocytes (%) (Auto) 7.1 % (1.0-10.0) Eosinophils (%) (Auto) 0.1 % (0.0-3.0) Basophils (%) (Auto) 0.2 % (0.0-2.0) Sodium Level 139 MMOL/L (136-145) Potassium Level 3.8 MMOL/L (3.5-5.1) Chloride Level 103 MMOL/L (98-107) Carbon Dioxide Level 25 MMOL/L (21-32) Anion Gap 11 mmol/L (5-15) Blood Urea Nitrogen 6 mg/dL (7-18) L Creatinine 0.6 MG/DL (0.55-1.30) Estimat Glomerular Filtration Rate mL/min (>60) Glucose Level 93 MG/DL (74-106) Calcium Level 9.1 MG/DL (8.5-10.1) Phosphorus Level 2.8 MG/DL (2.5-4.9) Magnesium Level 1.7 MG/DL (1.8-2.4) L Total Bilirubin 0.4 MG/DL (0.2-1.0) Aspartate Amino Transf (AST/SGOT) 16 U/L (15-37) Alanine Aminotransferase (ALT/SGPT) 14 U/L (12-78) Alkaline Phosphatase 82 U/L (46-116) Total Protein 7.1 G/DL (6.4-8.2) Albumin 2.8 G/DL (3.4-5.0) L Globulin 4.3 g/dL Albumin/Globulin Ratio 0.7 (1.0-2.7) L Height (Feet): 5 Height (Inches): 0.50 Weight (Pounds): 213 General Appearance: WD/WN, no apparent distress, alert Cardiovascular: normal rate Respiratory/Chest: normal breath sounds, no respiratory distress Abdominal Exam: normal bowel sounds, non tender, soft Extremities: non-tender, other - paraplegic Lili López NP Feb 15, 2018 11:18
--- NOTE | 2018-02-15 13:16 | Consultation ---
History of Present Illness General Date patient seen: Feb 15, 2018 Chief Complaint: Female Urogenital Problems Referring physician: MARJAN PALACIOS Reason for Consultation: Abdominal Pain Present Illness HPI 77yo female with hx of mmp and failure to thrive the pt has low appetite depressed mood and low energy Allergies: Coded Allergies: SILICONE (Unverified Allergy, Unknown, 09/18/15) Medication History Scheduled Ascorbic Acid* (Vitamin C*), 500 MG ORAL DAILY, (Reported) Baclofen* (Baclofen*), 10 MG ORAL DAILY, (Reported) Bimatoprost (Lumigan), 1 DROP BOTH EYES DAILY, (Reported) Bisoprolol Fumarate* (Zebeta*), 5 MG ORAL DAILY, (Reported) Clopidogrel Bisulfate* (Plavix*), 75 MG ORAL DAILY, (Reported) Metoprolol Succinate* (Metoprolol Succinate*), 100 MG ORAL DAILY, (Reported) Rosuvastatin Calcium* (Crestor*), 10 MG ORAL QHS, (Reported) Sulindac* (Clinoril*), 200 MG PO BID, (Reported) Zinc Sulfate (Zinc Sulfate*), 220 MG ORAL DAILY, (Reported) Scheduled PRN Oxymetazoline HCl (Afrin), 1 SPRAY NASAL DAILY PRN for p, (Reported) Discontinued Medications Levofloxacin* (Levaquin*), 500 MG ORAL DAILY, (Reported) Discontinued Reason: Therapy completed Patient History Limited by: medical condition History Provided By: Patient, Medical Record, PMD Healthcare decision maker Resuscitation status Full Code Advanced Directive on File Past Medical/Surgical History Past Medical/Surgical History: (1) Upper respiratory infection (2) Cough (3) Abscess (4) Cellulitis (5) Cellulitis of right axilla (6) Cellulitis of labia majora (7) Vaginal infection (8) Cellulitis of labia majora (9) UTI (urinary tract infection) (10) Vaginal bleeding (11) Urinary tract infection (12) Cellulitis (13) UTI (urinary tract infection) (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 (15) DVT (deep venous thrombosis) (16) Pulmonary embolism (17) Pleural effusion (18) Acute DVT (deep venous thrombosis) (19) Multiple sclerosis (20) Renal cell cancer (21) COPD (chronic obstructive pulmonary disease) (22) Right lower lobe pneumonia (23) Sepsis (24) Paraplegia (25) Diarrhea (26) Gastroenteritis (27) Viral syndrome (28) Nausea (29) Vomiting (30) Failure to thrive Review of Systems Psychiatric: Reports: prior hx, anxiety, depressed feelings, emotional problems Physical Exam General Appearance: no apparent distress, alert Neurologic: oriented x 3, depressed affect Last 24 Hour Vital Signs Date Time Temp Pulse Resp B/P (MAP) Pulse Ox O2 Delivery O2 Flow Rate FiO2 02/15/18 09:00 Room Air 02/15/18 08:11 85 18 Room Air 21 02/15/18 08:00 97.4 94 20 156/95 (115) 98 97.4 02/15/18 04:00 98.8 96 19 157/90 (112) 98 98.8 02/15/18 00:00 98.7 96 19 158/87 (110) 100 98.7 02/14/18 21:00 Room Air 02/14/18 20:06 83 18 Room Air 21 02/14/18 20:00 98.6 90 20 156/78 (104) 100 98.6 02/14/18 16:00 98.1 59 17 157/87 (110) 97 98.1 02/14/18 14:46 98.4 02/14/18 13:47 98.4 Intake and Output 02/14/18 02/15/18 19:00 07:00 Intake Total 400 ml Output Total 800 ml 1000 ml Balance -400 ml -1000 ml Intake Oral 400 ml Output Urine Total 800 ml 1000 ml # Bowel Movements 1 Laboratory Tests Test 02/15/18 05:50 White Blood Count 5.1 K/UL (4.8-10.8) Red Blood Count 5.46 M/UL (4.20-5.40) H Hemoglobin 14.1 G/DL (12.0-16.0) Hematocrit 43.8 % (37.0-47.0) Mean Corpuscular Volume 80 FL (80-99) Mean Corpuscular Hemoglobin 25.9 PG (27.0-31.0) L Mean Corpuscular Hemoglobin Concent 32.3 G/DL (32.0-36.0) Red Cell Distribution Width 12.0 % (11.6-14.8) Platelet Count 249 K/UL (150-450) Mean Platelet Volume 8.2 FL (6.5-10.1) Neutrophils (%) (Auto) 75.2 % (45.0-75.0) H Lymphocytes (%) (Auto) 17.3 % (20.0-45.0) L Monocytes (%) (Auto) 7.1 % (1.0-10.0) Eosinophils (%) (Auto) 0.1 % (0.0-3.0) Basophils (%) (Auto) 0.2 % (0.0-2.0) Sodium Level 139 MMOL/L (136-145) Potassium Level 3.8 MMOL/L (3.5-5.1) Chloride Level 103 MMOL/L (98-107) Carbon Dioxide Level 25 MMOL/L (21-32) Anion Gap 11 mmol/L (5-15) Blood Urea Nitrogen 6 mg/dL (7-18) L Creatinine 0.6 MG/DL (0.55-1.30) Estimat Glomerular Filtration Rate mL/min (>60) Glucose Level 93 MG/DL (74-106) Calcium Level 9.1 MG/DL (8.5-10.1) Phosphorus Level 2.8 MG/DL (2.5-4.9) Magnesium Level 1.7 MG/DL (1.8-2.4) L Total Bilirubin 0.4 MG/DL (0.2-1.0) Aspartate Amino Transf (AST/SGOT) 16 U/L (15-37) Alanine Aminotransferase (ALT/SGPT) 14 U/L (12-78) Alkaline Phosphatase 82 U/L (46-116) Total Protein 7.1 G/DL (6.4-8.2) Albumin 2.8 G/DL (3.4-5.0) L Globulin 4.3 g/dL Albumin/Globulin Ratio 0.7 (1.0-2.7) L Height (Feet): 5 Height (Inches): 0.50 Weight (Pounds): 213 Medications Current Medications Medications (Trade) Dose Ordered Sig/Daysi Route PRN Reason Start Time Stop Time Status Last Admin Dose Admin Albuterol/ Ipratropium (Albuterol/ Ipratropium) 3 ml Q4HRT PRN HHN sob 02/13/18 15:00 02/16/18 08:59 Dextrose (Dextrose 50%) 25 ml STAT PRN IV Hypoglycemia 02/13/18 13:00 03/11/18 12:59 Dextrose (Dextrose 50%) 50 ml STAT PRN IV Hypoglycemia 02/13/18 13:00 03/11/18 12:59 Diphenhydramine HCl (Benadryl) 25 mg Q6H PRN IVP Itching 02/14/18 15:30 03/16/18 15:29 02/14/18 15:36 Heparin Sodium (Porcine) (Heparin 5000 units/ml) 5,000 units EVERY 12 HOURS SUBQ 02/13/18 21:00 03/11/18 20:59 02/15/18 09:33 Tramadol HCl (Ultram) 75 mg Q8H PRN ORAL Severe Breakthru Pain (>7) 02/13/18 17:35 02/17/18 17:34 02/15/18 05:45 Valacyclovir HCl (Valtrex) 1,000 mg Q8HR ORAL 02/14/18 15:30 03/16/18 15:29 02/15/18 05:36 Vitamin A/Vitamin D (A & D Oint) 1 applic EVERY 12 HOURS TOPIC 02/13/18 21:00 03/11/18 20:59 02/14/18 21:45 Assessment/Plan Assessment/Plan mdd failure to thrive -remeron 7.5mg qhs Alexei Oliveira MD Feb 15, 2018 13:15
--- NOTE | 2018-02-15 13:35 | Urology Progress Note ---
Assessment/Plan Assessment/Plan 1. History of urinary retention with chronic Santillan. 2. Neurogenic bladder. 3. Pyuria, possible urinary tract infection and colonization. 4. Hematuria. 5. Proteinuria. 6. Right renal mass. santillan indwelling hand irrigate PRN s/p abx serial renal imaging renal fxn stable Subjective Allergies: Coded Allergies: SILICONE (Unverified Allergy, Unknown, 09/18/15) Subjective feels fair, dc held yest to eye rash Objective Last 24 Hour Vital Signs Date Time Temp Pulse Resp B/P (MAP) Pulse Ox O2 Delivery O2 Flow Rate FiO2 02/15/18 12:00 97.8 94 20 140/78 (98) 98 97.8 02/15/18 09:00 Room Air 02/15/18 08:11 85 18 Room Air 21 02/15/18 08:00 97.4 94 20 156/95 (115) 98 97.4 02/15/18 04:00 98.8 96 19 157/90 (112) 98 98.8 02/15/18 00:00 98.7 96 19 158/87 (110) 100 98.7 02/14/18 21:00 Room Air 02/14/18 20:06 83 18 Room Air 21 02/14/18 20:00 98.6 90 20 156/78 (104) 100 98.6 02/14/18 16:00 98.1 59 17 157/87 (110) 97 98.1 02/14/18 14:46 98.4 02/14/18 13:47 98.4 Intake and Output 02/14/18 02/15/18 19:00 07:00 Intake Total 400 ml Output Total 800 ml 1000 ml Balance -400 ml -1000 ml Intake Oral 400 ml Output Urine Total 800 ml 1000 ml # Bowel Movements 1 Microbiology Date/Time Source Procedure Growth Status 02/09/18 13:03 Blood Blood Culture - Final Staphylococcus Sp Coag Neg Complete 02/09/18 13:03 Urine,Clean Catch Urine Culture - Final Escherichia Coli Complete Current Medications Medications (Trade) Dose Ordered Sig/Daysi Route PRN Reason Start Time Stop Time Status Last Admin Dose Admin Albuterol/ Ipratropium (Albuterol/ Ipratropium) 3 ml Q4HRT PRN HHN sob 02/13/18 15:00 02/16/18 08:59 Dextrose (Dextrose 50%) 25 ml STAT PRN IV Hypoglycemia 02/13/18 13:00 03/11/18 12:59 Dextrose (Dextrose 50%) 50 ml STAT PRN IV Hypoglycemia 02/13/18 13:00 03/11/18 12:59 Diphenhydramine HCl (Benadryl) 25 mg Q6H PRN IVP Itching 02/14/18 15:30 03/16/18 15:29 02/14/18 15:36 Heparin Sodium (Porcine) (Heparin 5000 units/ml) 5,000 units EVERY 12 HOURS SUBQ 02/13/18 21:00 03/11/18 20:59 02/15/18 09:33 Mirtazapine (Remeron) 7.5 mg BEDTIME ORAL 02/15/18 21:00 03/17/18 20:59 Tramadol HCl (Ultram) 75 mg Q8H PRN ORAL Severe Breakthru Pain (>7) 02/13/18 17:35 02/17/18 17:34 02/15/18 05:45 Valacyclovir HCl (Valtrex) 1,000 mg Q8HR ORAL 02/14/18 15:30 03/16/18 15:29 02/15/18 05:36 Vitamin A/Vitamin D (A & D Oint) 1 applic EVERY 12 HOURS TOPIC 02/13/18 21:00 03/11/18 20:59 02/14/18 21:45 Laboratory Tests 02/15/18 05:50: White Blood Count 5.1, Red Blood Count 5.46H, Hemoglobin 14.1, Hematocrit 43.8, Mean Corpuscular Volume 80, Mean Corpuscular Hemoglobin 25.9L, Mean Corpuscular Hemoglobin Concent 32.3, Red Cell Distribution Width 12.0, Platelet Count 249, Mean Platelet Volume 8.2, Neutrophils (%) (Auto) 75.2H, Lymphocytes (%) (Auto) 17.3L, Monocytes (%) (Auto) 7.1, Eosinophils (%) (Auto) 0.1, Basophils (%) (Auto ) 0.2, Sodium Level 139, Potassium Level 3.8, Chloride Level 103, Carbon Dioxide Level 25, Anion Gap 11, Blood Urea Nitrogen 6L, Creatinine 0.6, Estimat Glomerular Filtration Rate , Glucose Level 93, Calcium Level 9.1, Phosphorus Level 2.8, Magnesium Level 1.7L, Total Bilirubin 0.4, Aspartate Amino Transf ( AST/SGOT) 16, Alanine Aminotransferase (ALT/SGPT) 14, Alkaline Phosphatase 82, Total Protein 7.1, Albumin 2.8L, Globulin 4.3, Albumin/Globulin Ratio 0.7L Height (Feet): 5 Height (Inches): 0.50 Weight (Pounds): 213 Objective exam stable abdominal u/s noted MARCELA LAUGHLIN Feb 15, 2018 13:35
[2018-02-15] MEDS: Vitamin A&D Oint 2oz Tube TOPIC SCH ×2 (14:50→20:46)
[2018-02-15] MEDS ORDERED: VALTREX500 MG ORAL (15:28)
--- NOTE | 2018-02-15 15:29 | Pulmonology Progress Note ---
Assessment/Plan Problems: (1) Sepsis (2) COPD (chronic obstructive pulmonary disease) (3) Right lower lobe pneumonia (4) Multiple sclerosis (5) Paraplegia Assessment/Plan on antivirals for Herpes check stool for Ova and parasites continue abx check cultures CEA elevated b/o ? renal tumor daughter agreed with hospice care upon discharge. Subjective ROS Limited/Unobtainable: No Constitutional: Reports: no symptoms Respiratory: Reports: no symptoms Allergies: Coded Allergies: SILICONE (Unverified Allergy, Unknown, 09/18/15) Objective Last 24 Hour Vital Signs Date Time Temp Pulse Resp B/P (MAP) Pulse Ox O2 Delivery O2 Flow Rate FiO2 02/15/18 12:00 97.8 94 20 140/78 (98) 98 97.8 02/15/18 09:00 Room Air 02/15/18 08:11 85 18 Room Air 21 02/15/18 08:00 97.4 94 20 156/95 (115) 98 97.4 02/15/18 04:00 98.8 96 19 157/90 (112) 98 98.8 02/15/18 00:00 98.7 96 19 158/87 (110) 100 98.7 02/14/18 21:00 Room Air 02/14/18 20:06 83 18 Room Air 21 02/14/18 20:00 98.6 90 20 156/78 (104) 100 98.6 02/14/18 16:00 98.1 59 17 157/87 (110) 97 98.1 Intake and Output 02/14/18 02/15/18 19:00 07:00 Intake Total 400 ml Output Total 800 ml 1000 ml Balance -400 ml -1000 ml Intake Oral 400 ml Output Urine Total 800 ml 1000 ml # Bowel Movements 1 General Appearance: WD/WN HEENT: normocephalic Respiratory/Chest: chest wall non-tender Breasts: no masses Cardiovascular: normal rate Abdomen: normal bowel sounds, soft, non tender Extremities: no cyanosis Skin: no rash Neurologic/Psychiatric: international account representative II-XII grossly normal Lymphatic: no neck adenopathy Laboratory Tests 02/15/18 05:50: White Blood Count 5.1, Red Blood Count 5.46H, Hemoglobin 14.1, Hematocrit 43.8, Mean Corpuscular Volume 80, Mean Corpuscular Hemoglobin 25.9L, Mean Corpuscular Hemoglobin Concent 32.3, Red Cell Distribution Width 12.0, Platelet Count 249, Mean Platelet Volume 8.2, Neutrophils (%) (Auto) 75.2H, Lymphocytes (%) (Auto) 17.3L, Monocytes (%) (Auto) 7.1, Eosinophils (%) (Auto) 0.1, Basophils (%) (Auto ) 0.2, Sodium Level 139, Potassium Level 3.8, Chloride Level 103, Carbon Dioxide Level 25, Anion Gap 11, Blood Urea Nitrogen 6L, Creatinine 0.6, Estimat Glomerular Filtration Rate , Glucose Level 93, Calcium Level 9.1, Phosphorus Level 2.8, Magnesium Level 1.7L, Total Bilirubin 0.4, Aspartate Amino Transf ( AST/SGOT) 16, Alanine Aminotransferase (ALT/SGPT) 14, Alkaline Phosphatase 82, Total Protein 7.1, Albumin 2.8L, Globulin 4.3, Albumin/Globulin Ratio 0.7L Current Medications Medications (Trade) Dose Ordered Sig/Daysi Route PRN Reason Start Time Stop Time Status Last Admin Dose Admin Albuterol/ Ipratropium (Albuterol/ Ipratropium) 3 ml Q4HRT PRN HHN sob 02/13/18 15:00 02/16/18 08:59 Dextrose (Dextrose 50%) 25 ml STAT PRN IV Hypoglycemia 02/13/18 13:00 03/11/18 12:59 Dextrose (Dextrose 50%) 50 ml STAT PRN IV Hypoglycemia 02/13/18 13:00 03/11/18 12:59 Diphenhydramine HCl (Benadryl) 25 mg Q6H PRN IVP Itching 02/14/18 15:30 03/16/18 15:29 02/14/18 15:36 Heparin Sodium (Porcine) (Heparin 5000 units/ml) 5,000 units EVERY 12 HOURS SUBQ 02/13/18 21:00 03/11/18 20:59 02/15/18 09:33 Levofloxacin (Levaquin) 500 mg DAILY ORAL 02/16/18 09:00 02/23/18 08:59 Levofloxacin (Levaquin) 500 mg ONCE ORAL 02/15/18 16:00 02/15/18 17:00 Mirtazapine (Remeron) 7.5 mg BEDTIME ORAL 02/15/18 21:00 03/17/18 20:59 Prednisone (predniSONE) 60 mg DAILY ORAL 02/16/18 09:00 03/18/18 08:59 Prednisone (predniSONE) 60 mg ONCE ORAL 02/15/18 16:00 02/15/18 17:00 Tramadol HCl (Ultram) 75 mg Q8H PRN ORAL Severe Breakthru Pain (>7) 02/13/18 17:35 02/17/18 17:34 02/15/18 05:45 Valacyclovir HCl (Valtrex) 1,000 mg Q8HR ORAL 02/14/18 15:30 03/16/18 15:29 02/15/18 14:49 Vitamin A/Vitamin D (A & D Oint) 1 applic EVERY 12 HOURS TOPIC 02/13/18 21:00 03/11/18 20:59 02/15/18 14:50 Lawrence Soriano MD Feb 15, 2018 15:29
[2018-02-15] MEDS ORDERED: Levofloxacin 500mg tab ORAL SCH (16:00)
[2018-02-16] VITALS: BP 159/93
[2018-02-16 04:00] VITALS: BP 154/82
[2018-02-16] MEDS: valACYclovir HCL 500mg tab ORAL SCH ×2 (05:07→15:17)
[2018-02-16] MEDS: traMADol 50mg tab ORAL PRN (05:08)
[2018-02-16 08:00] VITALS: BP 157/103
[2018-02-16 08:31] LABS: BASOPHILS % (AUTO) 0.4 % (0.0-2.0); HEMATOCRIT 43.7 % (37.0-47.0); HEMOGLOBIN 13.9 G/DL (12.0-16.0); LYMPHOCYTES % (AUTO) 16.3 % (20.0-45.0); MEAN CORPUSCULAR VOLUME 81 FL (80-99); MONOCYTES % (AUTO) 6.8 % (1.0-10.0); NEUTROPHILS % (AUTO) 76.5 % (45.0-75.0); PLATELET COUNT 259 K/UL (150-450); RED BLOOD COUNT 5.42 M/UL (4.20-5.40); RED CELL DISTRIBUTION WIDTH 12.2 % (11.6-14.8); WHITE BLOOD COUNT 6.9 K/UL (4.8-10.8)
[2018-02-16] MEDS: Vitamin A&D Oint 2oz Tube TOPIC SCH (08:40)
[2018-02-16] MEDS: Heparin 5000 units/ml inj SUBQ SCH (08:41)
[2018-02-16 08:49] LABS: ANION GAP 9 mmol/L (5-15); BLOOD UREA NITROGEN 7 mg/dL (7-18); CALCIUM 9.3 MG/DL (8.5-10.1); CARBON DIOXIDE 25 MMOL/L (21-32); CHLORIDE 105 MMOL/L (98-107); CREATININE 0.7 MG/DL (0.55-1.30); POTASSIUM 3.6 MMOL/L (3.5-5.1); SODIUM 139 MMOL/L (136-145)
--- NOTE | 2018-02-16 08:56 | Urology Progress Note ---
Assessment/Plan Assessment/Plan 1. History of urinary retention with chronic Santillan. 2. Neurogenic bladder. 3. Pyuria, possible urinary tract infection and colonization. 4. Hematuria. 5. Proteinuria. 6. Right renal mass. santillan indwelling, rec change q 2-3 weeks hand irrigate PRN s/p abx serial renal imaging renal fxn stable Subjective Allergies: Coded Allergies: SILICONE (Unverified Allergy, Unknown, 09/18/15) Subjective feels fair Objective Last 24 Hour Vital Signs Date Time Temp Pulse Resp B/P (MAP) Pulse Ox O2 Delivery O2 Flow Rate FiO2 02/16/18 08:44 Room Air 02/16/18 04:00 98.4 92 20 154/82 (106) 99 98.4 02/16/18 00:00 98.4 98 20 159/93 (115) 99 98.4 02/15/18 21:00 Room Air 02/15/18 20:00 98.1 89 20 160/91 (114) 94 98.1 02/15/18 19:30 84 18 Room Air 21 02/15/18 18:52 98.2 02/15/18 18:48 164/88 (113) 02/15/18 16:00 98.2 86 20 177/93 (121) 97 98.2 02/15/18 12:00 97.8 94 20 140/78 (98) 98 97.8 02/15/18 09:00 Room Air Intake and Output 02/15/18 02/16/18 19:00 07:00 Intake Total 720 ml 250 ml Output Total 500 ml 1500 ml Balance 220 ml -1250 ml Intake Oral 720 ml 250 ml Output Urine Total 500 ml 1500 ml Microbiology Date/Time Source Procedure Growth Status 02/09/18 13:03 Blood Blood Culture - Final Staphylococcus Sp Coag Neg Complete 02/09/18 13:03 Urine,Clean Catch Urine Culture - Final Escherichia Coli Complete Current Medications Medications (Trade) Dose Ordered Sig/Daysi Route PRN Reason Start Time Stop Time Status Last Admin Dose Admin Albuterol/ Ipratropium (Albuterol/ Ipratropium) 3 ml Q4HRT PRN HHN sob 02/13/18 15:00 02/16/18 08:59 Dextrose (Dextrose 50%) 25 ml STAT PRN IV Hypoglycemia 02/13/18 13:00 03/11/18 12:59 Dextrose (Dextrose 50%) 50 ml STAT PRN IV Hypoglycemia 02/13/18 13:00 03/11/18 12:59 Diphenhydramine HCl (Benadryl) 25 mg Q6H PRN IVP Itching 02/14/18 15:30 03/16/18 15:29 02/14/18 15:36 Heparin Sodium (Porcine) (Heparin 5000 units/ml) 5,000 units EVERY 12 HOURS SUBQ 02/13/18 21:00 03/11/18 20:59 02/16/18 08:41 Levofloxacin (Levaquin) 500 mg DAILY ORAL 02/16/18 09:00 02/23/18 08:59 02/16/18 08:39 Mirtazapine (Remeron) 7.5 mg BEDTIME ORAL 02/15/18 21:00 03/17/18 20:59 02/15/18 20:46 Prednisone (predniSONE) 60 mg DAILY ORAL 02/16/18 09:00 03/18/18 08:59 02/16/18 08:40 Tramadol HCl (Ultram) 75 mg Q8H PRN ORAL Severe Breakthru Pain (>7) 02/13/18 17:35 02/17/18 17:34 02/16/18 05:08 Valacyclovir HCl (Valtrex) 1,000 mg Q8HR ORAL 02/14/18 15:30 03/16/18 15:29 02/16/18 05:07 Vitamin A/Vitamin D (A & D Oint) 1 applic EVERY 12 HOURS TOPIC 02/13/18 21:00 03/11/18 20:59 02/16/18 08:40 Laboratory Tests 02/16/18 07:50: White Blood Count 6.9, Red Blood Count 5.42H, Hemoglobin 13.9, Hematocrit 43.7, Mean Corpuscular Volume 81, Mean Corpuscular Hemoglobin 25.7L, Mean Corpuscular Hemoglobin Concent 31.8L, Red Cell Distribution Width 12.2, Platelet Count 259, Mean Platelet Volume 7.7, Neutrophils (%) (Auto) 76.5H, Lymphocytes (%) (Auto) 16.3L, Monocytes (%) (Auto) 6.8, Eosinophils (%) (Auto) 0.0, Basophils (%) (Auto ) 0.4, Sodium Level 139, Potassium Level 3.6, Chloride Level 105, Carbon Dioxide Level 25, Anion Gap 9, Blood Urea Nitrogen 7, Creatinine 0.7, Estimat Glomerular Filtration Rate , Glucose Level 118H, Calcium Level 9.3 Height (Feet): 5 Height (Inches): 0.50 Weight (Pounds): 213 Objective exam stable abdominal u/s noted MARCELA LAUGHLIN Feb 16, 2018 08:56
[2018-02-16] MEDS ORDERED: Levofloxacin 500mg tab ORAL SCH (09:00)
--- NOTE | 2018-02-16 11:08 | GI Progress Note ---
Assessment/Plan Problems: (1) Vomiting ICD Codes: R11.10 - Vomiting, unspecified SNOMED: 524635489 (2) Nausea ICD Codes: R11.0 - Nausea SNOMED: 515963156 (3) Gastroenteritis ICD Codes: K52.9 - Noninfective gastroenteritis and colitis, unspecified SNOMED: 10078688 (4) Diarrhea ICD Codes: R19.7 - Diarrhea, unspecified SNOMED: 40183433 (5) Failure to thrive SNOMED: 68814759 Status: stable Status Narrative Discussed with Dr. Kay. Assessment/Plan supportive care / symptomatic treatment at this time regular diet, tolerating collect for cdiff/stool studies if patient has persistent diarrhea >> none reported fu O&P, per daughter had maggots in her stool abx ppi zofran prn pain mgmt outpatient GI procedures dc planning The patient was seen and examined at bedside and all new and available data was reviewed in the patients chart. I agree with the above findings, impression and plan. (Patient seen earlier today. Signature stamp does not reflect patient encounter time.). - Audi Kay MD Subjective Subjective right side facial rash no GI symptoms Objective Last 24 Hour Vital Signs Date Time Temp Pulse Resp B/P (MAP) Pulse Ox O2 Delivery O2 Flow Rate FiO2 02/16/18 08:44 Room Air 02/16/18 08:00 98.0 95 18 157/103 (121) 95 98.0 02/16/18 04:00 98.4 92 20 154/82 (106) 99 98.4 02/16/18 00:00 98.4 98 20 159/93 (115) 99 98.4 02/15/18 21:00 Room Air 02/15/18 20:00 98.1 89 20 160/91 (114) 94 98.1 02/15/18 19:30 84 18 Room Air 21 02/15/18 18:52 98.2 02/15/18 18:48 164/88 (113) 02/15/18 16:00 98.2 86 20 177/93 (121) 97 98.2 02/15/18 12:00 97.8 94 20 140/78 (98) 98 97.8 Intake and Output 02/15/18 02/16/18 19:00 07:00 Intake Total 720 ml 250 ml Output Total 500 ml 1500 ml Balance 220 ml -1250 ml Intake Oral 720 ml 250 ml Output Urine Total 500 ml 1500 ml Laboratory Tests Test 02/16/18 07:50 White Blood Count 6.9 K/UL (4.8-10.8) Red Blood Count 5.42 M/UL (4.20-5.40) H Hemoglobin 13.9 G/DL (12.0-16.0) Hematocrit 43.7 % (37.0-47.0) Mean Corpuscular Volume 81 FL (80-99) Mean Corpuscular Hemoglobin 25.7 PG (27.0-31.0) L Mean Corpuscular Hemoglobin Concent 31.8 G/DL (32.0-36.0) L Red Cell Distribution Width 12.2 % (11.6-14.8) Platelet Count 259 K/UL (150-450) Mean Platelet Volume 7.7 FL (6.5-10.1) Neutrophils (%) (Auto) 76.5 % (45.0-75.0) H Lymphocytes (%) (Auto) 16.3 % (20.0-45.0) L Monocytes (%) (Auto) 6.8 % (1.0-10.0) Eosinophils (%) (Auto) 0.0 % (0.0-3.0) Basophils (%) (Auto) 0.4 % (0.0-2.0) Sodium Level 139 MMOL/L (136-145) Potassium Level 3.6 MMOL/L (3.5-5.1) Chloride Level 105 MMOL/L (98-107) Carbon Dioxide Level 25 MMOL/L (21-32) Anion Gap 9 mmol/L (5-15) Blood Urea Nitrogen 7 mg/dL (7-18) Creatinine 0.7 MG/DL (0.55-1.30) Estimat Glomerular Filtration Rate mL/min (>60) Glucose Level 118 MG/DL (74-106) H Calcium Level 9.3 MG/DL (8.5-10.1) Height (Feet): 5 Height (Inches): 0.50 Weight (Pounds): 213 General Appearance: WD/WN, no apparent distress, alert Cardiovascular: normal rate Respiratory/Chest: normal breath sounds, no respiratory distress Abdominal Exam: normal bowel sounds, non tender, soft Extremities: normal range of motion, non-tender Lili López NP Feb 16, 2018 11:08
--- NOTE | 2018-02-16 11:23 | Pulmonology Progress Note ---
Assessment/Plan Problems: (1) Sepsis (2) COPD (chronic obstructive pulmonary disease) (3) Right lower lobe pneumonia (4) Multiple sclerosis (5) Paraplegia Assessment/Plan on antivirals for Herpes check stool for Ova and parasites continue abx check cultures CEA elevated b/o ? renal tumor daughter agreed with hospice care upon discharge. for dc today Subjective ROS Limited/Unobtainable: No Constitutional: Reports: no symptoms HEENT: Repors: no symptoms Respiratory: Reports: no symptoms Allergies: Coded Allergies: SILICONE (Unverified Allergy, Unknown, 09/18/15) Objective Last 24 Hour Vital Signs Date Time Temp Pulse Resp B/P (MAP) Pulse Ox O2 Delivery O2 Flow Rate FiO2 02/16/18 08:44 Room Air 02/16/18 08:00 98.0 95 18 157/103 (121) 95 98.0 02/16/18 04:00 98.4 92 20 154/82 (106) 99 98.4 02/16/18 00:00 98.4 98 20 159/93 (115) 99 98.4 02/15/18 21:00 Room Air 02/15/18 20:00 98.1 89 20 160/91 (114) 94 98.1 02/15/18 19:30 84 18 Room Air 21 02/15/18 18:52 98.2 02/15/18 18:48 164/88 (113) 02/15/18 16:00 98.2 86 20 177/93 (121) 97 98.2 02/15/18 12:00 97.8 94 20 140/78 (98) 98 97.8 Intake and Output 02/15/18 02/16/18 19:00 07:00 Intake Total 720 ml 250 ml Output Total 500 ml 1500 ml Balance 220 ml -1250 ml Intake Oral 720 ml 250 ml Output Urine Total 500 ml 1500 ml General Appearance: WD/WN HEENT: normocephalic, atraumatic Respiratory/Chest: chest wall non-tender, lungs clear Breasts: no masses Cardiovascular: normal rate Abdomen: normal bowel sounds, soft, non tender Genitourinary: normal external genitalia Extremities: no clubbing Skin: no rash Laboratory Tests 02/16/18 07:50: White Blood Count 6.9, Red Blood Count 5.42H, Hemoglobin 13.9, Hematocrit 43.7, Mean Corpuscular Volume 81, Mean Corpuscular Hemoglobin 25.7L, Mean Corpuscular Hemoglobin Concent 31.8L, Red Cell Distribution Width 12.2, Platelet Count 259, Mean Platelet Volume 7.7, Neutrophils (%) (Auto) 76.5H, Lymphocytes (%) (Auto) 16.3L, Monocytes (%) (Auto) 6.8, Eosinophils (%) (Auto) 0.0, Basophils (%) (Auto ) 0.4, Sodium Level 139, Potassium Level 3.6, Chloride Level 105, Carbon Dioxide Level 25, Anion Gap 9, Blood Urea Nitrogen 7, Creatinine 0.7, Estimat Glomerular Filtration Rate , Glucose Level 118H, Calcium Level 9.3 Current Medications Medications (Trade) Dose Ordered Sig/Daysi Route PRN Reason Start Time Stop Time Status Last Admin Dose Admin Dextrose (Dextrose 50%) 25 ml STAT PRN IV Hypoglycemia 02/13/18 13:00 03/11/18 12:59 Dextrose (Dextrose 50%) 50 ml STAT PRN IV Hypoglycemia 02/13/18 13:00 03/11/18 12:59 Diphenhydramine HCl (Benadryl) 25 mg Q6H PRN IVP Itching 02/14/18 15:30 03/16/18 15:29 02/14/18 15:36 Heparin Sodium (Porcine) (Heparin 5000 units/ml) 5,000 units EVERY 12 HOURS SUBQ 02/13/18 21:00 03/11/18 20:59 02/16/18 08:41 Levofloxacin (Levaquin) 500 mg DAILY ORAL 02/16/18 09:00 02/23/18 08:59 02/16/18 08:39 Mirtazapine (Remeron) 7.5 mg BEDTIME ORAL 02/15/18 21:00 03/17/18 20:59 02/15/18 20:46 Prednisone (predniSONE) 60 mg DAILY ORAL 02/16/18 09:00 03/18/18 08:59 02/16/18 08:40 Tramadol HCl (Ultram) 75 mg Q8H PRN ORAL Severe Breakthru Pain (>7) 02/13/18 17:35 02/17/18 17:34 02/16/18 05:08 Valacyclovir HCl (Valtrex) 1,000 mg Q8HR ORAL 02/14/18 15:30 03/16/18 15:29 02/16/18 05:07 Vitamin A/Vitamin D (A & D Oint) 1 applic EVERY 12 HOURS TOPIC 02/13/18 21:00 03/11/18 20:59 02/16/18 08:40 Lawrence Soriano MD Feb 16, 2018 11:23
[2018-02-16 12:00] VITALS: BP 171/95
--- NOTE | 2018-02-16 12:42 | General Progress Note ---
Assessment/Plan Status: stable Assessment/Plan mdd failure to thrive -remeron 7.5mg qhs Subjective Date patient seen: Feb 16, 2018 Neurologic/Psychiatric: Reports: anxiety, depressed, emotional problems Allergies: Coded Allergies: SILICONE (Unverified Allergy, Unknown, 09/18/15) Objective Last 24 Hour Vital Signs Date Time Temp Pulse Resp B/P (MAP) Pulse Ox O2 Delivery O2 Flow Rate FiO2 02/16/18 12:00 97.4 104 18 171/95 (120) 100 97.4 02/16/18 08:44 Room Air 02/16/18 08:02 92 20 Room Air 21 02/16/18 08:00 98.0 95 18 157/103 (121) 95 98.0 02/16/18 04:00 98.4 92 20 154/82 (106) 99 98.4 02/16/18 00:00 98.4 98 20 159/93 (115) 99 98.4 02/15/18 21:00 Room Air 02/15/18 20:00 98.1 89 20 160/91 (114) 94 98.1 02/15/18 19:30 84 18 Room Air 21 02/15/18 18:52 98.2 02/15/18 18:48 164/88 (113) 02/15/18 16:00 98.2 86 20 177/93 (121) 97 98.2 Intake and Output 02/15/18 02/16/18 19:00 07:00 Intake Total 720 ml 250 ml Output Total 500 ml 1500 ml Balance 220 ml -1250 ml Intake Oral 720 ml 250 ml Output Urine Total 500 ml 1500 ml Laboratory Tests 02/16/18 07:50: White Blood Count 6.9, Red Blood Count 5.42H, Hemoglobin 13.9, Hematocrit 43.7, Mean Corpuscular Volume 81, Mean Corpuscular Hemoglobin 25.7L, Mean Corpuscular Hemoglobin Concent 31.8L, Red Cell Distribution Width 12.2, Platelet Count 259, Mean Platelet Volume 7.7, Neutrophils (%) (Auto) 76.5H, Lymphocytes (%) (Auto) 16.3L, Monocytes (%) (Auto) 6.8, Eosinophils (%) (Auto) 0.0, Basophils (%) (Auto ) 0.4, Sodium Level 139, Potassium Level 3.6, Chloride Level 105, Carbon Dioxide Level 25, Anion Gap 9, Blood Urea Nitrogen 7, Creatinine 0.7, Estimat Glomerular Filtration Rate , Glucose Level 118H, Calcium Level 9.3 Height (Feet): 5 Height (Inches): 0.50 Weight (Pounds): 213 General Appearance: no apparent distress, alert Neurologic: alert, oriented x 3, responsive, depressed affect Alexei Oliveira MD Feb 16, 2018 12:42
[2018-02-16 13:32] VITALS: BP 138/78
--- NOTE | 2018-02-16 15:19 | Infectious Diseases Prog Note ---
Assessment/Plan Assessment/Plan Assessment: R facial vesicular rash; improving- likely 2ry herpes zoster- ?Early [place] Cespedes Syndrome - vesicles, ear pain, no facial paralysis at this point UTI -u/a wbc 30-40, nit +, leuk +3; ucx >100K E.coli (R amp, bactrim; otherwise S) Afebrile, no leukocytosis Abd pain; improving -ABD US: Limited exam as above resulting in lack of visualization of certain structures and artifact or poor visualization of other structures. Known solid mass in the upper pole the right kidney is visualized and measures approximately 3.5 cm. Unable to confidently assess for the presence or absence of hydronephrosis. Multiple anechoic presumably cystic structures are partially visualized in the liver.Given limitations of the exam recommend further evaluation with contrast-enhanced CT of the abdomen and pelvis. This would provide a more reliable assessment for interval change. -CXR: There is again elevation of the right hemidiaphragm now with mild increase in the collapse and atelectasis with possible small effusion seen. The left lung remains clear. MIld eosinophila, resolved ?Maggots on stool (per divya) -r/o intestinal parasitical infection RLE DVT CAD paraplegia HTN MS urinary retention 2ry to neurogenic bladder on chronic Shah anemia hx of UTI (E.coli 2015) R renal mass Plan: -Continue PO Valacyclovir 1g tid #3/ and add PO Prednisone 60mg daily #2/5 days -Resumed PO Levaquin #8/10 -02/14 SP Levaquin #6 -7/ Cefepime #3 -/ SP IV Vanco x1 -f/u cx -Monitor CBC/CMP, temperatures -Shah cath care -aspiration precautions -f/u Stool o/p x3 -contact isolation Thank you for this consultation. Will continue to follow along with you. Discussed with RN Subjective Allergies: Coded Allergies: SILICONE (Unverified Allergy, Unknown, 09/18/15) Subjective afebrile no leukocytosis rash improved per RN- was not able to see patient as was already discharged Called pharmacy for prescription of Valacyclovir Objective Vital Signs Last 24 Hour Vital Signs Date Time Temp Pulse Resp B/P (MAP) Pulse Ox O2 Delivery O2 Flow Rate FiO2 02/16/18 13:32 138/78 (98) 02/16/18 12:00 97.4 104 18 171/95 (120) 100 97.4 02/16/18 08:44 Room Air 02/16/18 08:02 92 20 Room Air 21 02/16/18 08:00 98.0 95 18 157/103 (121) 95 98.0 02/16/18 04:00 98.4 92 20 154/82 (106) 99 98.4 02/16/18 00:00 98.4 98 20 159/93 (115) 99 98.4 02/15/18 21:00 Room Air 02/15/18 20:00 98.1 89 20 160/91 (114) 94 98.1 02/15/18 19:30 84 18 Room Air 21 02/15/18 18:52 98.2 02/15/18 18:48 164/88 (113) 02/15/18 16:00 98.2 86 20 177/93 (121) 97 98.2 Height (Feet): 5 Height (Inches): 0.50 Weight (Pounds): 213 Objective Not done as patient already discharged Laboratory Tests Test 02/16/18 07:50 White Blood Count 6.9 K/UL (4.8-10.8) Red Blood Count 5.42 M/UL (4.20-5.40) H Hemoglobin 13.9 G/DL (12.0-16.0) Hematocrit 43.7 % (37.0-47.0) Mean Corpuscular Volume 81 FL (80-99) Mean Corpuscular Hemoglobin 25.7 PG (27.0-31.0) L Mean Corpuscular Hemoglobin Concent 31.8 G/DL (32.0-36.0) L Red Cell Distribution Width 12.2 % (11.6-14.8) Platelet Count 259 K/UL (150-450) Mean Platelet Volume 7.7 FL (6.5-10.1) Neutrophils (%) (Auto) 76.5 % (45.0-75.0) H Lymphocytes (%) (Auto) 16.3 % (20.0-45.0) L Monocytes (%) (Auto) 6.8 % (1.0-10.0) Eosinophils (%) (Auto) 0.0 % (0.0-3.0) Basophils (%) (Auto) 0.4 % (0.0-2.0) Sodium Level 139 MMOL/L (136-145) Potassium Level 3.6 MMOL/L (3.5-5.1) Chloride Level 105 MMOL/L (98-107) Carbon Dioxide Level 25 MMOL/L (21-32) Anion Gap 9 mmol/L (5-15) Blood Urea Nitrogen 7 mg/dL (7-18) Creatinine 0.7 MG/DL (0.55-1.30) Estimat Glomerular Filtration Rate mL/min (>60) Glucose Level 118 MG/DL (74-106) H Calcium Level 9.3 MG/DL (8.5-10.1) Current Medications Medications (Trade) Dose Ordered Sig/Daysi Route PRN Reason Start Time Stop Time Status Last Admin Dose Admin Clonidine HCl (Catapres Tab) 0.1 mg Q6H PRN ORAL HIGH BLOOD PRESSURE 02/16/18 13:00 03/18/18 12:59 Dextrose (Dextrose 50%) 25 ml STAT PRN IV Hypoglycemia 02/13/18 13:00 03/11/18 12:59 Dextrose (Dextrose 50%) 50 ml STAT PRN IV Hypoglycemia 02/13/18 13:00 03/11/18 12:59 Diphenhydramine HCl (Benadryl) 25 mg Q6H PRN IVP Itching 02/14/18 15:30 03/16/18 15:29 02/14/18 15:36 Heparin Sodium (Porcine) (Heparin 5000 units/ml) 5,000 units EVERY 12 HOURS SUBQ 02/13/18 21:00 03/11/18 20:59 02/16/18 08:41 Levofloxacin (Levaquin) 250 mg DAILY ORAL 02/17/18 09:00 02/22/18 08:59 Mirtazapine (Remeron) 7.5 mg BEDTIME ORAL 02/15/18 21:00 03/17/18 20:59 02/15/18 20:46 Prednisone (predniSONE) 60 mg DAILY ORAL 02/16/18 09:00 03/18/18 08:59 02/16/18 08:40 Tramadol HCl (Ultram) 75 mg Q8H PRN ORAL Severe Breakthru Pain (>7) 02/13/18 17:35 02/17/18 17:34 02/16/18 05:08 Valacyclovir HCl (Valtrex) 1,000 mg Q8HR ORAL 02/14/18 15:30 03/16/18 15:29 02/16/18 05:07 Vitamin A/Vitamin D (A & D Oint) 1 applic EVERY 12 HOURS TOPIC 02/13/18 21:00 03/11/18 20:59 02/16/18 08:40 Zoraida Bailey M.D. Feb 16, 2018 15:19
--- NOTE | 2018-02-16 16:22 | General Progress Note ---
Assessment/Plan Status: stable Assessment/Plan # Anemia due to history of hematuria. --> Continue to closely monitor --> Anemia w/u has been reviewed. --> Hgb goal >8 --> Currently stable. # Deep venous thrombosis of the lower extremity. --> Venous duplex although again reveals thrombus, it is in fact chronic, no physical exam findings to suggest acute thrombus --> she has had repeat studies x 2 before that also say same findings, clinical exam unchnaged, thus does not require anticoag --> The patient has a history of DVT. Completed 3 months of anticoagulation. # Proteinuria. eval with renal # Renal mass. Further evaluate per Urology Service. # History of urinary retention. Serial imaging as needed. Irrigation with hand as needed. # Urinary tract infection with underlying infection. # Multiple sclerosis. # Hypokalemia. Resolved. The time the note was entered does not necessarily correspond to the time the patient was seen. Subjective Date patient seen: Feb 16, 2018 ROS Limited/Unobtainable: Yes Hematologic/Lymphatic: Reports: anemia Allergies: Coded Allergies: SILICONE (Unverified Allergy, Unknown, 09/18/15) All Systems: reviewed and negative except above Subjective Pt awake and alert. No acute events. DC planning. Objective Last 24 Hour Vital Signs Date Time Temp Pulse Resp B/P (MAP) Pulse Ox O2 Delivery O2 Flow Rate FiO2 02/16/18 13:32 138/78 (98) 02/16/18 12:00 97.4 104 18 171/95 (120) 100 97.4 02/16/18 08:44 Room Air 02/16/18 08:02 92 20 Room Air 21 02/16/18 08:00 98.0 95 18 157/103 (121) 95 98.0 02/16/18 04:00 98.4 92 20 154/82 (106) 99 98.4 02/16/18 00:00 98.4 98 20 159/93 (115) 99 98.4 02/15/18 21:00 Room Air 02/15/18 20:00 98.1 89 20 160/91 (114) 94 98.1 02/15/18 19:30 84 18 Room Air 21 02/15/18 18:52 98.2 02/15/18 18:48 164/88 (113) Intake and Output 02/15/18 02/16/18 19:00 07:00 Intake Total 720 ml 250 ml Output Total 500 ml 1500 ml Balance 220 ml -1250 ml Intake Oral 720 ml 250 ml Output Urine Total 500 ml 1500 ml Laboratory Tests 02/16/18 07:50: White Blood Count 6.9, Red Blood Count 5.42H, Hemoglobin 13.9, Hematocrit 43.7, Mean Corpuscular Volume 81, Mean Corpuscular Hemoglobin 25.7L, Mean Corpuscular Hemoglobin Concent 31.8L, Red Cell Distribution Width 12.2, Platelet Count 259, Mean Platelet Volume 7.7, Neutrophils (%) (Auto) 76.5H, Lymphocytes (%) (Auto) 16.3L, Monocytes (%) (Auto) 6.8, Eosinophils (%) (Auto) 0.0, Basophils (%) (Auto ) 0.4, Sodium Level 139, Potassium Level 3.6, Chloride Level 105, Carbon Dioxide Level 25, Anion Gap 9, Blood Urea Nitrogen 7, Creatinine 0.7, Estimat Glomerular Filtration Rate , Glucose Level 118H, Calcium Level 9.3 Height (Feet): 5 Height (Inches): 0.50 Weight (Pounds): 213 General Appearance: no apparent distress, alert EENT: PERRL/EOMI Neck: normal alignment Cardiovascular: tachycardia Respiratory/Chest: no respiratory distress Abdomen: normal bowel sounds, soft Jesse Hall MD Feb 16, 2018 16:22
--- NOTE | 2018-02-17 13:25 | Discharge Summary ---
Discharge Summary Discharge Summary _ DATE OF ADMISSION: 02/09/2018 DATE OF DISCHARGE: 02/16/2018 CONSULTANTS: Dr. Lawrence Kay [facility] COURSE: Patient is a 77-year-old female, who had been on stable condition over the last several months. She is noted to have several chronic medical syndrome and had been stable on current medications. 2 days prior to admission, she developed low-grade fever with tachycardia and progressively increased dysuria and frequency. She has history of multiple sclerosis and paraplegia, morbid obesity and COPD. On evaluation at ED, white count was elevated to 12. Lactate was 2.1. Urinalysis showed 30-40 WBC, 5-10 RBC, 3+ leukocyte esterase, positive nitrite. Chest x-ray showed mild atelectasis at the right lung base. She was then admitted for sepsis. She was given IV antibiotics. She was started on Levaquin. She has history of chronic Shah. A new Shah catheter was inserted at ED. She has a history of patulous urethra, she usually has a large indwelling Shah catheter about 22 or 24 Korean, at ED, Shah Korean 18 was inserted but Shah catheter had been draining well. Recommend Shah catheter change every 2-3 weeks. She had ultrasound of the abdomen. She had a renal mass on the right kidney, however, had normal kidney functions. She complained of abdominal pain. She was seen by GI. She was given symptomatic treatment. She was recommended outpatient GI procedures. She was exhibiting depressed mood with no appetite and low energy. Patient with history of depression. She was given Remeron 7.5 daily at bedtime. Patient has facial vesicular rash possible herpes zoster. She was placed on antivirals and prednisone for herpes. Venous duplex of lower extremity showed thrombosis on the right leg. Could not in fact was chronic, there was no physical exam findings to suggest acute thrombus, clinical exam remained unchanged, no anticoagulation was needed. Patient had already completed 3 months of anticoagulation. Patient was eventually discharged home under hospice. FINAL DIAGNOSES: Sepsis COPD Right lower lobe pneumonia Multiple sclerosis Paraplegia Hospice care Anemia DVT right leg Possible herpes zoster DISPOSITION: Patient was discharged home with hospice. DISCHARGE MEDICATIONS: Refer to Discharge Medication List. Continue with levofloxacin for 5 more days and Valtrex for 10 days I have been assigned to dictate discharge summary on this account, and I was not involved in the patient's management. Kandi Boyd NP Feb 17, 2018 13:25
== END 2018-02-16 17:00 | disposition hospice, home (50) | DRG 720 ==
LOC: EMR 12:48 → 2E 13:26 → EDBEDREQ 14:11 → 4E 02-13 12:09
DX: A41.9 Sepsis, unspecified organism (principal); J18.9 Pneumonia, unspecified organism; G35 Multiple sclerosis; G82.20 Paraplegia, unspecified; J44.9 Chronic obstructive pulmonary disease, unspecified; N39.0 Urinary tract infection, site not specified; D64.9 Anemia, unspecified; B02.9 Zoster without complications; I82.501 Chronic embolism and thrombosis of unspecified deep veins of right lower extremity; Z91.048 Other nonmedicinal substance allergy status; I25.10 Atherosclerotic heart disease of native coronary artery without angina pectoris; I10 Essential (primary) hypertension; R33.8 Other retention of urine; N28.89 Other specified disorders of kidney and ureter; E87.6 Hypokalemia; B96.20 Unspecified Escherichia coli [E. coli] as the cause of diseases classified elsewhere; N31.9 Neuromuscular dysfunction of bladder, unspecified; K52.9 Noninfective gastroenteritis and colitis, unspecified; R62.7 Adult failure to thrive
CPT/HCPCS: 36415; 71045; 76700; 80048; 80053; 80076; 81003; 82378; 82550; 83605; 83690; 83735; 83880; 84100; 84439; 84443; 84484; 85025; 85610; 85651; 85730; 86140; 87040; 87086; 87181; 93005; 93970; 94664; 94760; 97802; 99285; J2405; J8499

== ENCOUNTER 2018-05-11 13:24 | Outpatient (CLI) | payer MEDICARE, BC ==
[~2018-05-11 13:24] MED LIST changes: +LEVOFLOXACIN500 MG ORAL; +VALTREX500 MG ORAL
--- NOTE | 2018-05-11 14:57 | Diagnostic Imaging Report ---
Indication: Headache Technique: Contiguous 5 mm thick transaxial imaging of the head obtained in a Siem[employer] Sensation [address] scanner. Soft tissue and bone windows generated. Automatic Exposure Control was utilized. Total Dose length Product (DLP): 1488.[address] Dose Index Volume (CTDIvol): 70.38 mGy Comparison: none Findings: There is moderate prominence of the ventricles, basal cisterns, and cerebral sulci consistent with atrophy. Moderate to severe patchy, nonspecific, white matter hypoattenuation is noted throughout the brain most likely due to chronic small vessel disease. There is no midline shift, edema, acute hemorrhage, mass effect, or abnormal extra-axial fluid collections. Bones and extra osseous soft tissues are unremarkable. Impression: No acute intracranial bleed, mass effect or edema. Moderate atrophy of the brain. Extensive chronic small vessel disease involving white matter tracts. The CT scanner at [facility] is accredited by the [employer] and the scans are performed using dose optimization techniques as appropriate to a performed exam including Automatic Exposure control.
== END 2018-05-11 15:24 | disposition home or self-care (01) ==
LOC: CAT 13:24
DX: G31.9 Degenerative disease of nervous system, unspecified (principal); I73.89 Other specified peripheral vascular diseases
CPT/HCPCS: 70450

== ENCOUNTER 2018-05-11 13:50 | Outpatient (CLI) | payer MEDICARE, BC ==
[2018-05-11 14:32] LABS: EOSINOPHILS % (AUTO) 3.4 % (0.0-3.0); HEMATOCRIT 50.4 % (37.0-47.0); HEMOGLOBIN 15.5 G/DL (12.0-16.0); LYMPHOCYTES % (AUTO) 30.8 % (20.0-45.0); MEAN CORPUSCULAR VOLUME 83 FL (80-99); MONOCYTES % (AUTO) 6.6 % (1.0-10.0); NEUTROPHILS % (AUTO) 58.2 % (45.0-75.0); PLATELET COUNT 217 K/UL (150-450); WHITE BLOOD COUNT 6.7 K/UL (4.8-10.8)
[2018-05-11 15:02] LABS: ALANINE AMINOTRANSFERASE 12 U/L (12-78); ALBUMIN 3.2 G/DL (3.4-5.0); ALBUMIN/GLOBULIN RATIO 0.7 (1.0-2.7); ALKALINE PHOSPHATASE 111 U/L (46-116); ANION GAP 9 mmol/L (5-15); ASPARTATE AMINO TRANSFERASE 17 U/L (15-37); BILIRUBIN,TOTAL 0.5 MG/DL (0.2-1.0); BLOOD UREA NITROGEN 9 mg/dL (7-18); CALCIUM 9.4 MG/DL (8.5-10.1); CARBON DIOXIDE 28 MMOL/L (21-32); CHLORIDE 106 MMOL/L (98-107); CREATININE 0.6 MG/DL (0.55-1.30); POTASSIUM 3.4 MMOL/L (3.5-5.1); SODIUM 143 MMOL/L (136-145)
== END 2018-05-11 15:50 | disposition home or self-care (01) ==
LOC: LAB 13:50
DX: C64.9 Malignant neoplasm of unspecified kidney, except renal pelvis (principal); E34.9 Endocrine disorder, unspecified; G31.9 Degenerative disease of nervous system, unspecified
CPT/HCPCS: 36415; 80053; 82378; 82607; 82746; 83036; 84439; 84443; 85025; 85651; 86039; 86140; 86592